=== PATIENT | female | born 1980 | race Caucasian/White ===

== ENCOUNTER 2024-03-03 09:50 | Outpatient (AMB) | payer OTHER, SELFPAY ==
--- NOTE | 2024-03-03 10:06 | A.OFFPC_ITS ---
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 She is requesting an albuterol inhaler at this time. 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 -Has been on fluoxetine for a while, got off it March 2023. c/o breast lump - [facility] Stressors- sick child PMHx: Depression/Anxiety, Asthma, GERD, IBS, Diabetes type 1 Dr Bailey at [facility], Neuropathy, Breast lump, Esophageal ulcer/Herpes virus. OB is [facility] SurgHx: , GB, Tonsils, Breast Lump [place] [facility] [place]x:??Alcoholism SocHx: Nonsmoker. 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 1. Little interest or pleasure in doing things: more than half the days 2. Feeling down, depressed, or hopeless: not at all 3. Trouble falling or staying asleep, or sleeping too much: nearly every day 4. Feeling tired or having little energy: nearly every day 5. Poor appetite or overeating: nearly every day 6. Feeling bad about yourself - or that you are a failure or have let yourself or your family down: not at all 7. Trouble concentrating on things, such as reading the newspaper or watching television: nearly every day 8. Moving or speaking so slowly that other people could have noticed. Or the opposite - being so fidgety or restless that you have been moving around a lot more than usual: nearly every day 9. Thoughts that you would be better off or of hurting yourself in some way: not at all Total score: 17 Depression Screening Interpretation: Positive Depression Screening Done: Yes 77859 - PHQ-9 Billing: Yes Source: Developed by Drs. Jj Sanchez, Blade Cabezas and colleagues, with an educational kelley from [employer]. TORO-7 AMB Questionnaire TORO-7 Date TORO - 7 assessed: 03/03/24 Feeling nervous, anxious, or on edge: 3 = Nearly every day Not being able to stop or control worryin = Not at all Worrying too much about different things: 2 = More than half the days Trouble relaxin = Several days Being so restless that it is hard to sit still: 0 = Not at all Becoming easily annoyed or irritable: 3 = Nearly every day Feeling afraid as if something awful might happen: 1 = Several days Total TORO-7 score (0-4 normal; 5-9 mild; 10-14 moderate; 15-21 severe): 10 Source: Developed by Drs. Jj Sanchez, Blade Cabezas and colleagues, with an educational kelley from [employer]. TORO-7 Assessment Billing TORO-7 Assessment Tool: TORO-7 Assessment 88331 ACT Questionnaire In the past 4 weeks, how much of the time did your asthma keep you from getting as much done at work, school or at home?: None of the time During the past 4 weeks, how often have you had shortness of breath?: 1-2 times a week During the past 4 weeks, how often did your asthma symptoms wake you up at night or earlier than usual in the morning?: Not at all During the past 4 weeks, how often have you had to use your rescue inhaler or nebulizer medication?: Not at all How would you rate your asthma control during the past 4 weeks?: Well controlled Score: 23 Review of Systems Const Denies chills, Denies fatigue, Denies fever(s), Denies headache(s) and Denies weakness ENT Denies dizziness and Denies headache(s) Card Denies chest pain, Denies lightheadedness, Denies dyspnea and Denies other (Palpitations) Resp Denies cough, Denies dyspnea, Denies wheezing and Denies other ( shortness of breath) Musc Denies numbness and Denies tingling Neuro Denies dizziness, Denies headache(s), Denies numbness, Denies tingling, Denies paresthesias and Denies weakness Psych Reports anxiety and Reports depression Endo Denies fatigue Aller/Immun Denies wheezing Physical exam (Primary Care) Vital Signs: Last Vital Signs Pulse 76 03/03/24 10:08 BP 128/70 03/03/24 10:08 Pulse Ox 97 03/03/24 10:08 Oxygen Delivery Method Room Air 03/03/24 10:08 BMI result Body Mass Index 27.5 Tobacco/Smoking Status: Tobacco use Status Tobacco use date assessed 03/03/24 03/03/24 10:20 Patient Tobacco Use Status Never used Tobacco 03/03/24 10:20 e-Cigarette/Vaping Use Never Used 03/03/24 10:20 Depression Screening Interpretation: Positive Const General: no acute distress and well developed Nutritional Appearance: well nourished Orientation/consciousness: patient oriented x3 HENMT Head: Yes normocephalic and Yes atraumatic Eyes General: appearance normal, both eyes and all related structures Pupils: Equal, round and reactive pupils present EOM: EOMs intact bilaterally Resp Effort & Inspection: normal respiratory effort Auscultation: clear to auscultation bilaterally Cardio Rate: regular rate Rhythm: regular rhythm Heart sounds: S1 normal heart sound present, S2 normal heart sound present, no gallops, no murmurs and no rubs Neuro General: patient oriented x3 and gait normal Cranial nerves: Yes Equal, round and reactive pupils present Psych Affect: No normal affect Assessment and Plan Assessment & Plan (1) Depression with anxiety: Code(s): F41.8 - Other specified anxiety disorders Plan: Questionnaire?scoring?high?for?depression?and?anxiety. She?has?a?therapist?and?has?a?history?of?fluoxetine?but?is?no?longer?on?this. She?declines?treatment?at?this?time?with?medications?and?I?encouraged?her?to?con tinue?with?her?therapist.??Let?her?know?that?we?can?discuss?medications?agai n?if?she?would?like. (2) Asthma: Code(s): J45.909 - Unspecified asthma, uncomplicated Plan: Gave?her?a?new?script?for?a?rescue?inhaler Gave?her?a?script?for?cetirizine?to?try?to?decrease?allergic?triggers (3) Type 1 diabetes: Code(s): E10.9 - Type 1 diabetes mellitus without complications Plan: A1c?7.8%?at?last?check,?per?patient. [facility]. Continue?current?medication?regimen?and?diabetic?diet Follow-up?with?endocrinology?as?recommended (4) Herpes simplex esophagitis: Code(s): B00.89 - Other herpesviral infection; K20.80 - Other esophagitis without bleeding Plan: She?is?on?acyclovir?for?suppression. Will?continue?the (5) Lump of breast: Code(s): N63.0 - Unspecified lump in unspecified breast Plan: Followed?by?[facility] Can?follow-up?with?them?as?recommended (6) Brain fog: Code(s): R41.89 - Other symptoms and signs involving cognitive functions and awareness Plan: Patient?attributes?this?to?discontinuing?acyclovir?and?herpetic?infection. Checking?labs We?can?discuss?further?at?subsequent?visits. (7) Laboratory exam ordered as part of routine general medical examination: Code(s): Z00.00 - Encounter for general adult medical examination without abnormal findings Plan: Check?labs Orders: Orders Lipid Panel Today Z00.00 - Encounter for general adult medical examination without abnormal findings UA and rflx microscopic Today Z00.00 - Encounter for general adult medical examination without abnormal findings Comprehensive [place]. Panel Fast Today Z00.00 - Encounter for general adult medical examination without abnormal findings Complete Blood Count Auto Diff Today Z00.00 - Encounter for general adult medical examination without abnormal findings Microalbumin, Random (w Creat) Today I10 - Essential (primary) hypertension TSH reflex Free T4 Today Z00.00 - Encounter for general adult medical examination without abnormal findings Vitamin D 25-OH Total Today E55.9 - Vitamin D deficiency, unspecified Magnesium Today J45.909 - Unspecified asthma, uncomplicated Medications: New albuterol sulfate 90 mcg/actuation (Ventolin HFA) 2 puffs inhalation Q4-6H 30 days PRN 8.5 grams 4RF shortness of breath or wheezing cetirizine (All Day Allergy (cetirizine)) 10 mg PO DAILY 90 days PRN 90 tabs 3RF allergy symptoms Coding Level of Care Code New Pt Level 4 (16856) Diagnoses Depression with anxiety F41.8 Asthma J45.909 Type 1 diabetes E10.9 Herpes simplex esophagitis B00.89; K20.80 Lump of breast N63.0 Brain fog R41.89 Laboratory exam ordered as part of routine general medical examination Z00.00 Additional Codes TORO-7 Assessment Billing - TORO-7 Assessment Tool: TORO-7 Assessment 32833 ([id number])
[2024-03-03 10:08] VITALS: BP 128/70; PULSE 76; O2SAT 97; BMI 27.5
== END 2024-03-03 11:15 | disposition home or self-care (01) ==
PROVIDERS: PCP Family Medicine; Visit Provider Family Medicine
DX: E10.9 Type 1 diabetes mellitus without complications (principal); F41.8 Other specified anxiety disorders; J45.909 Unspecified asthma, uncomplicated; B00.89 Other herpesviral infection; K20.80 Other esophagitis without bleeding; R41.89 Other symptoms and signs involving cognitive functions and awareness
CPT/HCPCS: 99204

== ENCOUNTER 2025-01-05 10:30 | Outpatient (REF) | payer BC, SELFPAY ==
[2025-01-05 14:20] LABS: Appearance Urine Clear; Color Urine Yellow; Glucose Urine UA Negative (Negative); Leukocyte Esterase Urine Negative (Negative); Nitrite Urine Negative (Negative); Urine Blood Negative (Negative); Urine Ketones Negative (Negative); Urine Protein Negative (Neg-Trace)
[2025-01-05 14:22] LABS: MANUAL DIFF FLAG NO
[2025-01-05 14:26] LABS: Basophils Absolute Auto 0.1 X10*3/uL (0.0-0.2); Basophils Percent Auto 0.9 % (0-2); Eosinophils Absolute Auto 0.5 X10*3/uL (0.0-0.4); Eosinophils Percent Auto 7.7 % (0-4); Hematocrit 39.4 % (37.0-47.0); Hemoglobin 13.5 g/dl (12.0-16.0); Imm Gran Abs Auto 0.02 X10*3/uL (0.00-0.03); Imm Gran Pct Auto 0.3 % (0.0-0.4); Lymphocytes Percent Auto 31.3 % (20-40); Mean Corpuscular HGB Conc 34.3 g/dl (31.0-35.0); Mean Corpuscular Hemoglobin 30.1 pg (27.0-33.0); Mean Corpuscular Volume 87.8 fL (80.0-98.0); Mean Platelet Volume 9.5 fL (9.4-12.3); Monocytes Absolute Auto 0.6 X10*3/uL (0.1-1.2); Monocytes Percent Auto 8.8 % (2-11); Neutrophils Absolute Auto 3.3 x10*3/uL (2.0-8.3); Platelet Count 341 X10*3/uL (160-400); Red Blood Count 4.49 X10*6/uL (4.20-5.50); Red Cell Distribution Width 11.8 % (11.0-16.0); White Blood Count 6.4 X10*3/uL (4.8-10.8)
[2025-01-05 15:05] LABS: Alanine Aminotransferase 29 U/L (0-31); Albumin Level 4.1 g/dL (3.5-5.0); Alkaline Phosphatase 72 U/L (39-117); Anion Gap 9 (12-20); Aspartate Amino Transferase 26 U/L (5-31); Bilirubin Total 0.4 mg/dL (0.0-1.0); Blood Urea Nitrogen 21 mg/dL (9-16); Calcium 9.5 mg/dL (8.4-10.2); Carbon Dioxide 27 mmol/L (22-29); Chloride 109 mmol/L (96-108); Cholesterol 171 mg/dL (<200); Estimated Glomerular Filt Rate > 60; Glucose Fasting 86 mg/dL (60-99); HDL Cholesterol 58 mg/dL (>40); LDL Cholesterol Calculated 104 mg/dL (<100); Magnesium 1.9 mg/dL (1.6-2.6); Potassium 4.1 mmol/L (3.3-5.1); Sodium 141 mmol/L (135-145); Total Protein 6.6 g/dL (6.5-8.0); Triglycerides 46 mg/dL (<150)
[2025-01-05 15:14] LABS: TSH reflex Free T4 0.89 uIU/mL (0.32-4.0); Vitamin D 25-OH Total 68.1 ng/mL (>30)
[2025-01-05 15:27] LABS: Creatinine Urine 35.53 mg/dL; Microalbumin Urine < 5.0 mg/L
== END 2025-01-05 10:31 | disposition home or self-care (01) ==
LOC: HO.WFDLDS 10:30
PROVIDERS: Visit Provider Family Medicine
DX: Z00.00 Encounter for general adult medical examination without abnormal findings (principal); E55.9 Vitamin D deficiency, unspecified; J45.909 Unspecified asthma, uncomplicated; I10 Essential (primary) hypertension
CPT/HCPCS: 36415; 80053; 80061; 81003; 82043; 82306; 82570; 83735; 84443; 85025

== ENCOUNTER 2025-01-12 11:55 | Outpatient (AMB) | payer BC, SELFPAY ==
--- NOTE | 2025-01-12 12:16 | A.OFFPC_ITS ---
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 Is last menstrual period known: No Post menopausal: Yes Patient : No Allergies Penicillins [PCN] Allergy (Mild, Verified 01/12/25 12:17) HIVES penicillin V Allergy (Unknown, Verified 01/12/25 12:17) Hives, fever, vomiting Sulfa (Sulfonamide Antibiotics) [SULFA (SULFONAMIDE ANTIBIOTICS)] Allergy (Unknown, Verified 01/12/25 12:17) ITCHING Medication List - Last Reconciled 01/12/25 by Eric Guerrero MD acyclovir 200 mg PO TID albuterol sulfate 90 mcg/actuation (Ventolin HFA) 2 puffs inhalation Q4-6H PRN 30 days cetirizine (All Day Allergy (cetirizine)) 10 mg PO DAILY PRN 90 days fluconazole 100 mg PO QWEEK insulin lispro (Humalog U-100 Insulin) 1 sliding scale dose subcut USEASDIRECTD Tobacco use date assessed: 01/12/25 Dental Screening Dental Screen Date: 01/12/25 Did you have a dental visit in the last 12 months?: Yes Did you have a dental problem in the last 6 months where you did not have access to dental care?: Yes Was dental information given to patient?: No HPI Extended exam with f/u labs and health maint.+ A1C HPI Details 44 y/o female presents for a CPE with f/ u labs and health maint. Labs drawn 01/05/25. Reviewed labs with pt. Triglycerides 46. TC 171. LDL 104. HDL 58. PHQ-9 6, TORO-7 9 today. Type 1 diabetes. Last A1c 8.6% and is followed by endocrinology. [facility] Medical History delivery delivered Depression Anxiety Rash Imbalance Memory loss Neuropathy Injury Incontinence Esophageal ulcer Gallbladder attack GERD (gastroesophageal reflux disease) IBS (irritable bowel syndrome) Arthritis Palpitations Asthma Surgical History S/P cholecystectomy S/P tonsillectomy Family History Brother Substance abuse in family High blood pressure Paternal Uncle Substance abuse in family Maternal Grandmother Substance abuse in family High blood pressure Diabetes Thyroid disorder Mother High blood pressure Diabetes Thyroid disorder Father High blood pressure Alcoholism Paternal Grandfather High blood pressure Thyroid disorder Paternal Grandfather High blood pressure Thyroid disorder Unknown Diabetes Alcoholism Paternal Grandmother Alcoholism Maternal Grandfather Alcoholism Social History Housing: House Patient Tobacco Use Status: Never used Tobacco e-Cigarette/Vaping Use: Never Used Second Hand Smoke Exposure: No service: No Current occupational status: employed 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 1. Little interest or pleasure in doing things: several days 2. Feeling down, depressed, or hopeless: not at all 3. Trouble falling or staying asleep, or sleeping too much: several days 4. Feeling tired or having little energy: several days 5. Poor appetite or overeating: not at all 6. Feeling bad about yourself - or that you are a failure or have let yourself or your family down: not at all 7. Trouble concentrating on things, such as reading the newspaper or watching television: more than half the days 8. Moving or speaking so slowly that other people could have noticed. Or the opposite - being so fidgety or restless that you have been moving around a lot more than usual: several days 9. Thoughts that you would be better off or of hurting yourself in some way: not at all Total score: 6 Depression Screening Interpretation: Positive (Referred to Neuropsych) Depression Screening Done: Yes 12948 - PHQ-9 Billing: Yes Source: Developed by Drs. Jj Sanchez, Karlie Perez, Blade Muhammad and colleagues, with an educational kelley from [employer]. Thrive Questionnaire Date Thrive assessed: 01/12/25 I am a: Patient What is your living situation today?: I have a steady place to live Within the past 12 months, did the food you bought not last and you didn't have the money to get more?: Never true Within the past 12 months, did you worry whether your food would run out before you got money to buy more?: Never true Do you have trouble paying for medicines?: No Do you have trouble getting transportation to medical appointments?: No Do you have trouble paying your heating and electricity bill?: No Do you have trouble taking care of your child, family member or friend?: No Do you have trouble with day-to-day activities such as bathing, preparing meals, shopping, managing finances, etc.?: No Are you currently unemployed and looking for a job?: No Are you interested in more education?: Yes Please select the resources that you would like help with: None Currently or been in a relationship where the following occur: No concerns reported THRIVE Score: 0 AUDIT C Alcohol Use Questionnaire (AUDIT-C) 1. How often do you have a drink containing alcohol?: Never 3. How often do you have six or more drinks on one occasion?: Never Total Score: 0 Score Reviewed/Action Taken: Yes TORO-7 AMB Questionnaire TORO-7 Date TORO - 7 assessed: 01/12/25 Feeling nervous, anxious, or on edge: 3 = Nearly every day Not being able to stop or control worryin = Several days Worrying too much about different things: 1 = Several days Trouble relaxin = Several days Being so restless that it is hard to sit still: 1 = Several days Becoming easily annoyed or irritable: 1 = Several days Feeling afraid as if something awful might happen: 1 = Several days Total TORO-7 score (0-4 normal; 5-9 mild; 10-14 moderate; 15-21 severe): 9 Source: Developed by Drs. Jj Sanchez, Karlie Perez, Blade Muhammad and colleagues, with an educational kelley from [employer]. TORO-7 Assessment Billing TORO-7 Assessment Tool: TORO-7 Assessment 23716 Review of Systems Const Denies chills, Denies fatigue, Denies fever(s), Denies headache(s) and Denies weakness Eyes Denies change in vision ENT Denies dizziness and Denies headache(s) Card Denies dyspnea Resp Denies cough, Denies dyspnea, Denies wheezing and Denies other (shortness of breath) GI Denies abdominal pain, Denies melena, Denies hematochezia, Denies change in bowel habits, Denies dyspepsia and Denies nausea Denies hematuria and Denies dysuria Musc Denies numbness and Denies tingling Skin/Breast Denies rash, Denies unusual bruising and Denies wounds Neuro Denies dizziness, Denies headache(s), Denies numbness, Denies Sensory deficit (Neuro), Denies tingling and Denies weakness Psych Reports anxiety and Reports depression Endo Denies fatigue Milton/Lymph Denies easy bleeding and Denies easy bruising Aller/Immun Denies wheezing Physical exam (Primary Care) Vital Signs: Last Vital Signs Temp 98.3 F 01/12/25 12:24 Pulse 70 01/12/25 12:24 Resp 14 01/12/25 12:24 BP 106/68 01/12/25 12:24 Pulse Ox 98 01/12/25 12:24 Oxygen Delivery Method Room Air 01/12/25 12:24 BMI result Body Mass Index 27.6 Tobacco/Smoking Status: Tobacco use Status Tobacco use date assessed 01/12/25 01/12/25 12:27 Patient Tobacco Use Status Never used Tobacco 01/12/25 12:27 e-Cigarette/Vaping Use Never Used 01/12/25 12:27 PHQ-9: PHQ-9 Score PHQ-9: Total score 6 01/12/25 12:27 Depression Screening Interpretation: Positive (Referred to Neuropsych) Thrive Assessment: Date of Thrive Assessment Date Thrive assessed 01/12/25 01/12/25 12:27 Currently or been in a relationship where the following occur: No concerns reported Const General: well developed; No acute distress Nutritional Appearance: well nourished Orientation/consciousness: patient oriented x3 HENMT Head: Yes normocephalic and Yes atraumatic Ears: hearing grossly normal bilaterally and TM's normal bilaterally General nose exam: Normal external nose present and Normal nares present Mouth: Normal oral and palatal mucosa present and moist mucous membranes Teeth and gingiva: dentition normal Throat: Yes posterior oropharynx normal Eyes General: appearance normal, both eyes and all related structures Pupils: Equal, round and reactive pupils present EOM: EOMs intact bilaterally Neck Neck: Yes normal visual inspection, Yes no lymphadenopathy and Yes trachea midline Thyroid: Thyroid normal Carotids: no bruits Lymphatic: no lymphadenopathy noted Chest Chest palpation & inspection: normal inspection of the chest Resp Other: Wheeze at L upper lung field Effort & Inspection: normal respiratory effort Auscultation: not clear to auscultation bilaterally Cardio Rate: regular rate Rhythm: regular rhythm Heart sounds: S1 normal heart sound present, S2 normal heart sound present, no gallops, no murmurs and no rubs Bruits: no abdominal aortic bruits and no carotid bruits GI Palpation (GI): No Abdominal aortic bruit present, Soft to palpation, nontender, No hepatosplenomegaly present and No Rebound tenderness present Auscultation: normal bowel sounds General: Yes no CVA tenderness Back/Spine/Pelvis Back: no CVA tenderness Cervical Spine: cervical ROM normal and No Cervical spine tenderness Thoracic/Lumbar Spine: thoraco-lumbar ROM normal, No pain with thoraco-lumbar ROM, No thoracic spinal tenderness and No lumbar spinal tenderness Skin Lesions: no lesions Rashes: no rashes Trauma: no lacerations or abrasions Wounds: no wounds Nails: normal Neuro General: patient oriented x3 and gait normal Cranial nerves: Yes Equal, round and reactive pupils present Cognition (Neuro): normal cognition Gait exam (Neuro): Normal gait present Motor exam (neuro): 5/5 motor strength present throughout Sensory Exam: No Sensory deficit (Neuro) Deep tendon reflexes (DTR's): Right patellar reflex intensity grade: 2+ and Left patellar reflex intensity grade: 2+ Extrem General: Yes normal to inspection and No edema Psych Other: Tearful while recounting stressors Appearance: grossly normal Affect: normal affect Attitude: cooperative Thought process: Normal thought process present Coding Level of Care Code Est Pt Level 3 (29350) Est Pt Prev Care 40-64y(54312) Diagnoses Adult general medical exam Z00.00 Brain fog R41.89 Shortness of breath R06.02 Abnormal lung sounds R09.89 Type 1 diabetes E10.9 Screening for colon cancer Z12.11 Breast cancer screening by mammogram Z12.31 Screening for cervical cancer Z12.4 Additional Codes TORO-7 Assessment Billing - TORO-7 Assessment Tool: TORO-7 Assessment 75391 ([id number]) PHQ-9 - 33302 - PHQ-9 Billing: Yes ([id number]) Assessment & Plan Assessment & Plan (1) Adult general medical exam: Code(s): Z00.00 - Encounter for general adult medical examination without abnormal findings Category: Medical Plan: 44-year-old?female?presents?for?complete?physical?exam Stable (2) Brain fog: Code(s): R41.89 - Other symptoms and signs involving cognitive functions and awareness Category: Medical Plan: Ongoing?complaints?of?brain?fog?and?memory?changes?as?well?as?some?mental?stephany hernandez Referred?to?neuropsychiatry She?also?has?allergies?and?elevated?eosinophils. Allergies?can?sometimes?contribute?brain?fog?and?I?have?referred?her?to?immunolo gy (3) Shortness of breath: Code(s): R06.02 - Shortness of breath Category: Medical Plan: She?has?had?some?shortness?of?breath?and?she?has A?wheeze/grown?at?left?upper?lung?field Check?chest?x-ray (4) Abnormal lung sounds: Code(s): R09.89 - Other specified symptoms and signs involving the circulatory and r espiratory systems Category: Medical Plan: As?above,?checking?a?chest?x-ray. (5) Type 1 diabetes: Code(s): E10.9 - Type 1 diabetes mellitus without complications Category: Medical Plan: Followed[facility]by[facility]ology[facility]at[facility] No?changes?to?her?medication?regimen?today Follow-up?with?your?specialist?as?recommended (6) Screening for colon cancer: Code(s): Z12.11 - Encounter for screening for malignant neoplasm of colon Category: Medical Plan: Referred?to? (7) Breast cancer screening by mammogram: Code(s): Z12.31 - Encounter for screening mammogram for malignant neoplasm of breast Category: Medical Plan: Followed?by?her?nurse obgyn Will?request?notes Patient?says?that?she?has been?diagnosed?with?diabetic?mastopathy. She?has?also?had?a?lumpectomy?which?was?benign Most?recent?mammogram?required?ex?reviews?and she?was?then?j ust?told?she?has?dense?breasts. Follow-up?nurse obgyn?as?recommended (8) Screening for cervical cancer: Code(s): Z12.4 - Encounter for screening for malignant neoplasm of cervix Category: Medical Plan: Has?upcoming?appointment?with?her?nurse obgyn Plan Patient?acknowledges?significant?stress?and?stressors?and?anxiety.??She?denied?d epression?but?became?tearful?at?multiple?times?during?our?exam?while?recounting? various?stressors. She?also?acknowledges?significant?musculoskeletal?aches?and?pains. Concern?for?fibromyalgia.??Concern?for?anxiety?and?depression.??She?has?declined ?medication?for?mood?disorders. I ?am?referring?her?to?neuropsychiatry?to?evaluate memory?changes,?mental?blocking?and?brain?fog.??These?can?however?be be?due?to?a?mood?disorder. May?also?have?fibromyalgia.??We?discussed?that?I?have?n ot?ruled?this?out?and?if?we?rule?out?other?underlying?causes?for?her?musculoskel etal?conditions?as?well?as mental?conditions,?this?may?be?the?underlying?cause. Orders: Orders CRP High Sensitivity Today R41.3 - Other amnesia XR chest 2V Today R09.89 - Other specified symptoms and signs involving the circulatory and respiratory systems Follicle Stimulating Hormone Today R41.3 - Other amnesia Lutenizing Hormone Today R41.3 - Other amnesia HIV Ab/Ag Today R41.3 - Other amnesia, Z11.3 - Encounter for screening for infections with a predominantly sexual mode of transmission Syphilis Screen Today R41.3 - Other amnesia, Z11.3 - Encounter for screening for infections with a predominantly sexual mode of transmission Erythrocyte Sedimentation Rate Today R41.3 - Other amnesia Estrogen Today R41.3 - Other amnesia Referrals Allergy & Immunology Referral D72.10 - Eosinophilia, unspecified, R41.89 - Other symptoms and signs involving cognitive functions and awareness, T78.40XA - Allergy, unspecified, initial encounter Gastroenterology Referral K21.9 - Gastro-esophageal reflux disease without esophagitis, K22.10 - Ulcer of esophagus without bleeding, Z12.11 - Encounter for screening for malignant neoplasm of colon Neuropsychiatry Referral R41.3 - Other amnesia, R41.89 - Other symptoms and signs involving cognitive functions and awareness
[2025-01-12 12:24] VITALS: BP 106/68; PULSE 70; RESP 14; TEMP 36.8; O2SAT 98; BMI 27.6
--- OUTSIDE RECORDS SUMMARY | 2025-01-12 14:15 | XMS_ITS | Continuity of Care Document ---
Author Organization [facility] Address [address] [place] [address]- Care Team Providers Care Linux Consultant Name Role Phone Not on Staff, PCP Primary Care Physician Unavail able [place] [facility] [place]): 12/10/24 - 01/09/25 [facility] [address] [place], [place] [address] Encounter Type: Triage Allergies, Adverse Reactions, Alerts Substance Criticality Severity Reaction Reaction Severity Status acetaminophen 1 due to glucose monitor Active penicillin hives/ fever Active Bactrim Itching Active garlic 2 bloated; nausea and vomiting; joint pain Active 1states that it affects her CGM 2nasuea, vommiting, diarrhea, swelling, joint pain Immunizations Given and Recorded Vaccine Date Status Refusal Reason pneumococcal 23-valent vaccine 1 10/25/17 Given tetanus-diphtheria toxoids (Td) 2 11/01/16 Recorde d tetanus-diphtheria toxoids (Td) 3 10/14/06 Recorde d influenza virus vaccine, inactivated 07/29/12 Nito rded influenza virus vaccine, inactivated 09/09/11 Nito rded influenza virus vaccine, inactivated 07/31/10 Nito rded diphtheria-tetanus toxoids (DT) 01/20/07 Recorded 1Result Comment: [10/25/2017] [facility] [id number] 2Result Comment: [04/17/2017] [facility] 3Result Comment: [08/06/2014] documentation received from records Medications acyclovir 200 mg oral capsule 1 capsule, By Mouth, 2 times a day, # 180 capsule, 1 Refills, Maintenance, 12/16/23 11:46:00 AM EST, [id number], 163, cm, 12/24/22 11:26:00 EDT, Height, 62.6, kg, 12/24/22 11:26:00 EDT, Dry Weight Start Date: 12/16/23 Status: Ordered Quantity: 180.0 Unit: capsule Repeat number: 1 busPIRone 5 mg oral tablet 5 mg, 1, tablet, By Mouth, 2 times a day, PRN, as needed for acute anxiety, # 28 tablet, Refills 0,Tot. Refills 0, Maintenance, Anxiety, 08/08/22 8:25:00 AM EDT, Route to Pharmacy Electronically, [facility]/pharmacy #[id number], Partial fill upon patient request if the prescription is for a schedule II opioid drug., 162.56, cm, 08/08/22 7:53:00 EDT, Height, 67.7, kg, 04/11/21 16:32:00 EDT, Dry Weight Start Date: 08/08/22 Stop Date: 08/22/22 Status: Ordered Quantity: 28.0 Unit: tablet Repeat number: 1 cranberry oral capsule 1 tablet, By Mouth, Daily in AM, 0 Refills, Maintenance, 07/09/19 10:09:09 AM EDT Start Date: 07/09/19 Status: Ordered Repeat number: 1 fluconazole 150 mg oral tablet 1 tablet, By Mouth, Every week, X180 DAYS., # 4 tablet, 12 Refills, Soft Stop, 06/06/22 8:54:00 AM EDT, [facility]/pharmacy #[id number], 162.56, cm, 03/08/22 16:39:00 EDT, Height, 67.7, kg, 04/11/21 16:32:00 EDT, Dry Weight Start Date: 06/06/22 Status: Ordered Quantity: 4.0 Unit: tablet Repeat number: 13 Gabapentin By Mouth, 0 Refills, Maintenance, 12/24/22 11:29:00 AM EDT, Partial fill upon patient request if theprescription is for a schedule II opioid drug. Start Date: 12/24/22 Status: Ordered Repeat number: 1 Humalog 100 u/ml subcutaneous injection See Instructions, Subcutaneous Injection, Use as directed for Diabetes mellitus type 1. (Max Dose =50 units/day). 10 mL vials, # 3 vials, 5 Refills, Maintenance, 01/20/14 4:13:26 PM EDT, [facility]/pharmacy #[id number] Start Date: 01/20/14 Stop Date: 07/19/14 Status: Ordered Quantity: 3.0 Unit: vials Repeat number: 6 Insulin Syringe, BD Ultra-Fine 0.5 cc 31 G x 8 mm (5/16in) See Instructions, # 100 each, Refills 5, Tot. Refills 5, Maintenance, Inject insulin as directed 3-5 times a day DX: Diabetes Type II, 05/24/17 4:30:36 PM EDT, Compound Start Date: 05/24/17 Stop Date: 11/20/17 Status: Ordered Quantity: 100.0 Unit: each Repeat number: 6 Insulin Syringe, BD Ultra-Fine 1 cc 30 G x 12.7 mm (1/2in) See Instructions, PRN, # 100 each, Refills 11, Tot. Refills 11, Maintenance, type 1 DM, type 1 DM as diected, 06/28/17 4:04:02 PM EDT, Compound Start Date: 06/28/17 Status: Ordered Quantity: 100.0 Unit: each Repeat number: 12 Liletta 52 mg intrauterine device 1 each = 52 mg, Once, 0 Refills, Maintenance, 07/03/19 11:28:54 AM EDT Start Date: 07/03/19 Status: Ordered Repeat number: 1 Magnesium Amino Acids Chelate By Mouth, 0 Refills, Maintenance, 12/24/22 11:28:00 AM EDT, Partial fill upon patient request if theprescription is for a schedule II opioid drug. Start Date: 12/24/22 Status: Ordered Repeat number: 1 Natrol SAMe 200 mg oral tablet 2 tablet = 400 mg, By Mouth, Daily, 0 Refills, Maintenance, 12/24/22 11:28:00 AM EDT, Partial fill upon patient request if the prescription is for a schedule II opioid drug. Start Date: 12/24/22 Status: Ordered Repeat number: 1 oxyCODONE 5 mg oral tablet 5 mg, 1, tablet, By Mouth, Every 6 hours, PRN, # 5 tablet, Refills 0, Tot. Refills 0, Maintenance, for pain, 11/02/22 4:25:00 PM EST, Route to Pharmacy Electronically, [facility]/pharmacy #[id number], Partial fillupon patient request, 163, cm, 11/02/22 14:38:00 EST, Height, 65, kg, 11/02/22 14:38:00 EST, Dry Weight Start Date: 11/02/22 Status: Ordered Quantity: 5.0 Unit: tablet Repeat number: 1 ProAir HFA 90 mcg/inh inhalation aerosol with adapter 2 puffs, Inhalation, 4 times a day, PRN Wheezing/Shortness of Breath, # 1 bottle, 1 Refills, Maintenance, 11/23/14 10:52:36 AM EST, [facility]/pharmacy #[id number], 2 puffs Inhalation 4 times a day,PRN:Wheezing/Shortness of Breath Start Date: 11/23/14 Status: Ordered Quantity: 1.0 Unit: bottle Repeat number: 2 Probiotic Formula 1 capsule, By Mouth, Daily, 0 Refills, Maintenance, 07/09/19 10:11:29 AM EDT Start Date: 07/09/19 Status: Ordered Repeat number: 1 turmeric 500 mg oral capsule 1 capsule = 500 mg, By Mouth, Daily, # 60 capsule, 0 Refills, Maintenance, 07/09/19 10:11:08 AM EDT,Capsule Start Date: 07/09/19 Status: Ordered Quantity: 60.0 Unit: capsule Repeat number: 1 Vitamin B12 1 tablet, By Mouth, Daily, 0 Refills, Maintenance, 07/09/19 10:11:41 AM EDT Start Date: 07/09/19 Status: Ordered Repeat number: 1 Problem List Condition Confirmation Course Effective Dates Status H ealth Status Informant Diabetes mellitus with neuropathy Confirmed Active Genital herpes in women Confirmed Active Long-term insulin use Confirmed Active Mixed hyperlipidemia Confirmed Active Diabetic retinopathy of both eyes Confirmed Active Diabetes mellitus type 1 Confirmed Active Vitamin D deficiency Confirmed Active Social History Social History Type Response Smoking Status Never smoker entered on: 09/16/13 Sex Sex Representation Female (finding) Patient Care team information Care Team Personnel Name: Chon Zarate RN Position: [facility] RN Member Role: Primary Care Nurse Name: Isabel Baker MD Position: [facility] MATERIAL MIXER MD Member Role: Lifetime MATERIAL MIXER Physician Address: [address] [place] [address]'s [facility] [place] [address]- Telecom: Name: Not on Staff, PCP Position: [facility] Physician (General Medicine) Member Role: PCP Care Team Related Persons Name: DARIEL FLORES Name: TAMMIE CORONADO Name: TAMMIE HERNANDEZ Insurance Providers Guarantor name: WENDIE IVONNE [facility] Plan Information #: 1 Payer: OUT OF STATE PLANS Member Number: NA Policy Number: NA Group Number: NA
--- OUTSIDE RECORDS SUMMARY | 2025-01-12 14:15 | XMS_ITS | Continuity of Care Document ---
[facility] Organization [facility] Address [address] [place] [address]- Care Team Providers Care Legal Clerk Name Role Phone Not on Staff, PCP Primary Care Physician Unavail able [place] [facility] [place] 12/10/24 - 01/09/25 [facility] [address] [place], [place] [address] Encounter Type: Triage Allergies, Adverse Reactions, Alerts Substance Criticality Severity Reaction Reaction Severity Status acetaminophen 1 due to glucose monitor Active garlic 2 bloated; nausea and vomiting; joint pain Active penicillin hives/ fever Active Bactrim Itching Active 1states that it affects her CGM [...] toxoids (DT) 01/20/07 Recorded 1Result Comment: [10/25/2017] [facility] [id number] 2Result Comment: [04/17/2017] [facility] ER 3Result Comment: [08/06/2014] documentation received from records Medications acyclovir 200 mg oral capsule 1 capsule, By Mouth, 2 times a day, # 180 capsule, 1 Refills, Maintenance, 12/16/23 11:46:00 AM EST, [id number], 163, cm, 12/24/22 11:26:00 EDT, Height, 62.6, kg, 12/24/22 11:26:00 EDT, Dry Weight Start Date: 12/16/23 Status: Ordered Quantity: 180.0 Unit: capsule Repeat number: 1 busPIRone 5 mg oral tablet 5 mg, 1, tablet, By Mouth, 2 times a day, PRN, as needed for acute anxiety, # 28 tablet, Refills 0,Tot. Refills 0, Maintenance, Anxiety, 08/08/22 8:25:00 AM EDT, Route to Pharmacy Electronically, [facility]/pharmacy #[id number], Partial fill upon patient request if [...] Refills, Soft Stop, 06/06/22 8:54:00 AM EDT, [facility]/pharmacy #[id number], 162.56, cm, 03/08/22 16:39:00 EDT, Height, [...] 5 Refills, Maintenance, 01/20/14 4:13:26 PM EDT, [facility]/pharmacy #[id number] Start Date: 01/20/14 Stop Date: 07/19/14 [...] 4:25:00 PM EST, Route to Pharmacy Electronically, [facility]/pharmacy #[id number], Partial fillupon patient request, 163, cm, 11/02/22 14:38:00 EST, Height, 65, kg, 11/02/22 14:38:00 EST, Dry Weight Start Date: 11/02/22 Status: Ordered Quantity: 5.0 Unit: tablet Repeat number: 1 ProAir HFA 90 mcg/inh inhalation aerosol with adapter 2 puffs, Inhalation, 4 times a day, PRN Wheezing/Shortness of Breath, # 1 bottle, 1 Refills, Maintenance, 11/23/14 10:52:36 AM EST, [facility]/pharmacy #[id number], 2 puffs Inhalation 4 times a day,PRN:Wheezing/Shortness [...] Team Personnel Name: Chon Zarate RN Position: [facility] RN Member Role: Primary Care Nurse Name: Isabel Baker MD Position: [facility] CUSTOM HARVESTER MD Member Role: Lifetime CUSTOM HARVESTER Physician Address: [address] [place] [address]'s [facility] [place] [address]- Telecom: Name: Not on Staff, PCP Position: [facility] Physician (General Medicine) Member Role: PCP Care Team Related Persons Name: DARIEL FLORES Name: TAMMIE CORONADO Name: TAMMIE HERNANDEZ Insurance Providers Guarantor name: WENDIE IVONNE [facility] Plan Information #: 1 Payer: OUT OF STATE PLANS Member Number: NA Policy Number: NA Group Number: NA
--- OUTSIDE RECORDS SUMMARY | 2025-01-12 14:15 | XMS_ITS | Continuity of Care Document ---
Author Organization [facility] Address [address] [place] [address]- Care Team Providers Care [employer] Director Name Role Phone Not on Staff, PCP Primary Care Physician Unavail able [place] [facility] [place] 01/[place]25 [facility] [address] [place], [place] [address] Encounter Type: Triage Allergies, Adverse Reactions, [...] toxoids (DT) 01/20/07 Recorded 1Result Comment: [10/25/2017] [facility] [id number] 2Result Comment: [04/17/2017] [facility] ER 3Result Comment: [08/06/2014] documentation received from records Medications acyclovir 200 mg oral capsule 1 capsule, By Mouth, 2 times a day, # 180 capsule, 1 Refills, Maintenance, 12/16/23 11:46:00 AM EST, [facility] [id number], 163, cm, 12/24/22 11:26:00 EDT, Height, 62.6, kg, 12/24/22 11:26:00 EDT, Dry Weight Start Date: 12/16/23 Status: Ordered Quantity: 180.0 Unit: capsule Repeat number: 1 busPIRone 5 mg oral tablet 5 mg, 1, tablet, By Mouth, 2 times a day, PRN, as needed for acute anxiety, # 28 tablet, Refills 0,Tot. Refills 0, Maintenance, Anxiety, 08/08/22 8:25:00 AM EDT, Route to Pharmacy Electronically, [facility]/pharmacy #[id number], Partial fill upon patient request if [...] Refills, Soft Stop, 06/06/22 8:54:00 AM EDT, [facility]/pharmacy #[id number], 162.56, cm, 03/08/22 16:39:00 EDT, Height, [...] 5 Refills, Maintenance, 01/20/14 4:13:26 PM EDT, [facility]/pharmacy #[id number] Start Date: 01/20/14 Stop Date: 07/19/14 [...] 4:25:00 PM EST, Route to Pharmacy Electronically, [facility]/pharmacy #[id number], Partial fillupon patient request, 163, cm, 11/02/22 14:38:00 EST, Height, 65, kg, 11/02/22 14:38:00 EST, Dry Weight Start Date: 11/02/22 Status: Ordered Quantity: 5.0 Unit: tablet Repeat number: 1 ProAir HFA 90 mcg/inh inhalation aerosol with adapter 2 puffs, Inhalation, 4 times a day, PRN Wheezing/Shortness of Breath, # 1 bottle, 1 Refills, Maintenance, 11/23/14 10:52:36 AM EST, [facility]/pharmacy #[id number], 2 puffs Inhalation 4 times a day,PRN:Wheezing/Shortness [...] Team Personnel Name: Chon Zarate RN Position: [facility] RN Member Role: Primary Care Nurse Name: Isabel Baker MD Position: [facility] BALANCE CLERK MD Member Role: Lifetime BALANCE CLERK Physician Address: [address] [place] [address]'s [facility] [place] [address]- Telecom: Name: Not on Staff, PCP Position: [facility] Physician (General Medicine) Member Role: PCP Care Team Related Persons Name: DARIEL FLORES Name: TAMMIE CORONADO Name: TAMMIE HERNANDEZ Insurance Providers Guarantor name: WENDIE IVONNE [facility] Plan Information #: 1 Payer: OUT OF STATE PLANS Member Number: NA Policy Number: NA Group Number: NA
== END 2025-01-12 13:29 | disposition home or self-care (01) ==
LOC: HO.HMCFM 11:56
PROVIDERS: PCP Family Medicine; Visit Provider Family Medicine
DX: Z00.00 Encounter for general adult medical examination without abnormal findings (principal); R41.89 Other symptoms and signs involving cognitive functions and awareness; R06.02 Shortness of breath; E10.9 Type 1 diabetes mellitus without complications; R09.89 Other specified symptoms and signs involving the circulatory and respiratory systems; Z12.11 Encounter for screening for malignant neoplasm of colon; Z12.31 Encounter for screening mammogram for malignant neoplasm of breast

== ENCOUNTER → 2025-01-12 11:55 | Outpatient (BNVA) | payer BC, SELFPAY | PROVIDERS: PCP Family Medicine; Visit Provider Family Medicine | DX: Z00.00 Encounter for general adult medical examination without abnormal findings (principal); R41.89 Other symptoms and signs involving cognitive functions and awareness; R06.02 Shortness of breath; R09.89 Other specified symptoms and signs involving the circulatory and respiratory systems; E10.9 Type 1 diabetes mellitus without complications | CPT/HCPCS: 96127 ==

== ENCOUNTER 2025-01-20 07:42 | Outpatient (REF) | payer BC, SELFPAY ==
--- NOTE | ~2025-01-20 | XR_ITS ---
EXAMINATION: XR CHEST CLINICAL INFORMATION: R09.89 - Other specified symptoms and signs involving the circulatory an... COMPARISON: 12/31/2017. TECHNIQUE: 2 views of the chest were obtained. FINDINGS: The cardiac, hilar, and mediastinal contours are normal. The lungs are clear bilaterally. There is no pneumothorax or pleural effusion. There is no focal osseous or soft tissue abnormality. XR/XR chest 2V IMPRESSION: Normal chest. Electronically signed by: Mario Forman MD 01/20/2025 08:52 AM EDT
[2025-01-20 12:32] LABS: HIV AB/AG Nonreactive (Nonreactive); HIV Num 1 0.07 S/CO (0.00-0.99); Syphilis Screen Nonreactive (Nonreactive)
[2025-01-20 13:02] LABS: Erythrocyte Sedimentation Rate 12 MM/HR (0-20)
[2025-01-21 08:29] LABS: Lutenizing Hormone 45.7 mIU/mL
[2025-01-21 08:49] LABS: CRP High Sensitivity 1.7 mg/L
[2025-01-22 18:44] LABS: Lyme Abs Screen <0.90 index
[2025-01-26 15:23] LABS: Estrogen 161 pg/mL
== END 2025-01-20 07:43 | disposition home or self-care (01) ==
LOC: HO.WFDLDS 07:42
PROVIDERS: PCP Family Medicine; Visit Provider Family Medicine
DX: R41.3 Other amnesia (principal); R09.89 Other specified symptoms and signs involving the circulatory and respiratory systems; R52 Pain, unspecified
CPT/HCPCS: 36415; 71046; 82672; 83001; 83002; 85652; 86141; 86617; 86618; 86780; 87389

== ENCOUNTER → 2025-01-20 08:23 | Outpatient (BNV) | payer BC, SELFPAY | PROVIDERS: PCP Family Medicine; Visit Provider Radiology Diagnostic Radiology | DX: R07.9 Chest pain, unspecified (principal) | CPT/HCPCS: 71046 ==

== ENCOUNTER 2025-02-03 11:13 | Outpatient (AMB) | payer BC, SELFPAY ==
--- NOTE | 2025-02-03 11:10 | A.OFFPC_ITS ---
Intake Visit Reasons: f/u chest x-ray via telemed Intake Note: patient is scheduled for x-ray review Glaze Supervisor Required: No Allergies Penicillins [PCN] Allergy (Mild, Verified 02/03/25 11:12) HIVES penicillin V Allergy (Unknown, Verified 02/03/25 11:12) Hives, fever, vomiting Sulfa (Sulfonamide Antibiotics) [SULFA (SULFONAMIDE ANTIBIOTICS)] Allergy (Unknown, Verified 02/03/25 11:12) ITCHING Medication List - Last Reconciled 02/03/25 by Eric Guerrero MD acyclovir 200 mg PO TID albuterol sulfate 90 mcg/actuation (Ventolin HFA) 2 puffs inhalation Q4-6H PRN 30 days cetirizine (All Day Allergy (cetirizine)) 10 mg PO DAILY PRN 90 days fluconazole 100 mg PO QWEEK insulin lispro (Humalog U-100 Insulin) 1 sliding scale dose subcut USEASDIRECTD Tobacco use date assessed: 01/12/25 Dental Screening Dental Screen Date: 01/12/25 HPI f/u chest x-ray via telemed HPI Details 44 y/o female presents to review chest x -ray due to abnormal lung sounds at L upper lung lugo and complaints of shortness of breath. Also f/u on labwork. She is getting hot flashes and likely is in perimenopause. Chest x-ray 01/20/25 was fine. Reviewed?inflammatory?markers?and?Lyme?testing Negative Patient?is?still?having?myalgias?and?pain Still?having?issues?with?hot?flashes?and?memory?changes ?brain?fog? She?has?been?appointment?with?immunology?to?Will?allergies?in?May. He?has?not?heard?back?from?neuropsychiatry?yet. [facility] Medical History delivery delivered Depression Anxiety Rash Imbalance Memory loss Neuropathy Injury Incontinence Esophageal ulcer Gallbladder attack GERD (gastroesophageal reflux disease) IBS (irritable bowel syndrome) Arthritis Palpitations Asthma Surgical History S/P cholecystectomy S/P tonsillectomy Family History Brother Substance abuse in family High blood pressure Paternal Uncle Substance abuse in family Maternal Grandmother Substance abuse in family High blood pressure Diabetes Thyroid disorder Mother High blood pressure Diabetes Thyroid disorder Father High blood pressure Alcoholism Paternal Grandfather High blood pressure Thyroid disorder Paternal Grandfather High blood pressure Thyroid disorder Unknown Diabetes Alcoholism Paternal Grandmother Alcoholism Maternal Grandfather Alcoholism Social History Housing: House Patient Tobacco Use Status: Never used Tobacco e-Cigarette/Vaping Use: Never Used Second Hand Smoke Exposure: No service: No Current occupational status: employed 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 Cognitive needs: No Hearing needs: No Vision needs: Yes (Patient wears glasses) Questionnaire Thrive Questionnaire Date Thrive assessed: 01/12/25 I am a: Patient What is your living situation today?: I have a steady place to live Within the past 12 months, did the food you bought not last and you didn't have the money to get more?: Never true Within the past 12 months, did you worry whether your food would run out before you got money to buy more?: Never true Do you have trouble paying for medicines?: No Do you have trouble getting transportation to medical appointments?: No Do you have trouble paying your heating and electricity bill?: No Do you have trouble taking care of your child, family member or friend?: No Do you have trouble with day-to-day activities such as bathing, preparing meals, shopping, managing finances, etc.?: No Are you currently unemployed and looking for a job?: No Are you interested in more education?: Yes Please select the resources that you would like help with: None Currently or been in a relationship where the following occur: No concerns reported THRIVE Score: 0 AUDIT C Alcohol Use Questionnaire (AUDIT-C) 3. How often do you have six or more drinks on one occasion?: Never Total Score: 0 TORO-7 AMB Questionnaire TORO-7 Date TORO - 7 assessed: 01/12/25 Source: Developed by Drs. Jj Sanchez, Karlie Perez, Blade Muhammad and colleagues, with an educational kelley from [employer]. Review of Systems Const Details: See?HPI Physical exam (Primary Care) Tobacco/Smoking Status: Tobacco use Status Tobacco use date assessed 01/12/25 02/03/25 11:13 Patient Tobacco Use Status Never used Tobacco 02/03/25 11:13 e-Cigarette/Vaping Use Never Used 02/03/25 11:13 Thrive Assessment: Date of Thrive Assessment Date Thrive assessed 01/12/25 02/03/25 11:13 Currently or been in a relationship where the following occur: No concerns reported Telehealth Telehealth Telehealth Platform: Telephone Location of provider rendering services: practice address Location of patient: address on file Patient Identification confirmed using: Name, : Yes Telehealth method: voice only Patient verbally consented to treatment: Yes Patient verbally consented to billing insurance company: Yes Patient informed of any privacy concerns related to visit: Yes Minutes spent on Phone/Video with Pt.: 25 Coding Level of Care Code Tele Est Pt Level 3 (98103) Diagnoses Shortness of breath R06.02 Menopause Z78.0 Myalgia M79.10 Assessment & Plan Assessment & Plan (1) Shortness of breath: Code(s): R06.02 - Shortness of breath Category: Medical Plan: Noted?some?shortness?of?breath Chest?x-ray?negative. No?significant?shortness?of?br eath?today?though?she?does?have?complaints?of?chronic?fatigue. (2) Menopause: Code(s): Z78.0 - Asymptomatic menopausal state Category: Medical Plan: Hormone?levels?consistent?with?menopause This?may?be?an?underlying?or?contributing?factor?to?her?f atigue?as?well?as?hot?flashes?and? brain?fog (3) Myalgia: Code(s): M79.10 - Myalgia, unspecified site Category: Medical Plan: Achiness?and?pain Sed?rate?CRP?and?Lyme?testing?negative. CBC?negative As?above,?appears?to?be?going?through?menopause?in?his?may?be?contributing No?see?any?evidence?of?an?inflammatory?or autoimmune?disorder?at?this?point Possibly?neurologic Possibly secondary?to?anxiety/depression?or?other psychological condition. - referred?her?to?neuropsychiatry?in?awaiting?response. Possible?fibromyalgia Discussed?with?patient?that?we?will?follow-up?continue?to?investigate?but?also?t hat?if?no?other?cause?is?found,?that?this?m ay?secondary?to?fibromyalgia?or?to?a?psychiatric?disorder.
--- OUTSIDE RECORDS SUMMARY | 2025-02-03 13:32 | XMS_ITS | Patient Health Record ---
Author Organization [facility] Address [address] [place] [address] Care Team Providers Care Duct Layer Name Role Phone Eric Guerrero Primary Care Provider Jj Hamm Unavailable [phone] Reason For Referral No Information Plan Of Treatment Next Appt Details Provider Name:Jj Og , 05/20/2025 09:40:00 AM, [address], [address], [place], [address], Insurance Providers Payer Name Payer Address Payer Phone Subscriber Number Group Number Insured Name Patient Relationship to Insured Coverage Start Date Coverage End Date [facility] [address] [place] [address] [phone] [id number] WENDIE CORONADO Self - patient is the insured
== END 2025-02-03 14:39 | disposition home or self-care (01) ==
LOC: HO.HMCFM 11:13
PROVIDERS: PCP Family Medicine; Visit Provider Family Medicine
DX: R06.02 Shortness of breath (principal); Z78.0 Asymptomatic menopausal state; M79.10 Myalgia, unspecified site

== ENCOUNTER → 2025-02-03 11:13 | Outpatient (BNVA) | payer BC, SELFPAY | PROVIDERS: PCP Family Medicine; Visit Provider Family Medicine | DX: Z13.89 Encounter for screening for other disorder (principal) ==

== ENCOUNTER 2025-05-14 17:48 | Emergency (ER) | payer BC, SELFPAY ==
[2025-05-14 17:54] VITALS: BP 132/76; PULSE 80; O2SAT 100
[2025-05-14 18:00] VITALS: BP 154/80; PULSE 92; RESP 14; TEMP 36.6; O2SAT 100; BMI 27.1
[2025-05-14 18:12] VITALS: PULSE 98
--- NOTE | 2025-05-14 18:24 | ECG_ITS ---
Test Reason : PALPITATIONS Blood Pressure : */* mmHG Vent. Rate : 75 BPM Atrial Rate : 75 BPM P-R Int : 118 ms QRS Dur : 78 ms QT Int : 382 ms P-R-T Axes : 25 75 45 degrees QTcB Int : 426 ms Normal sinus rhythm Normal ECG When compared with ECG of 31-Dec-2017 08:03, No significant change was found Referred By: Akhil Suarez Electronically Signed By: BIA VILLALOBOS MD
[2025-05-14 18:36] LABS: MANUAL DIFF FLAG NO
[2025-05-14 18:37] LABS: Hematocrit 35.8 % (37.0-47.0); Hemoglobin 13.0 g/dl (12.0-16.0); Imm Gran Abs Auto 0.02 X10*3/uL (0.00-0.03); Imm Gran Pct Auto 0.3 % (0.0-0.4); Lymphocytes Absolute Auto 2.6 X10*3/uL (1.2-4.9); Mean Corpuscular HGB Conc 36.3 g/dl (31.0-35.0); Mean Corpuscular Hemoglobin 31.1 pg (27.0-33.0); Mean Corpuscular Volume 85.6 fL (80.0-98.0); NRBC Abs Auto 0.000 X10*3/uL (0.0-0.012); NRBC Pct Auto 0.0 /100WBC (0.0-0.2); Platelet Count 371 X10*3/uL (160-400); Red Blood Count 4.18 X10*6/uL (4.20-5.50); White Blood Count 7.7 X10*3/uL (4.8-10.8)
[2025-05-14 18:55] LABS: Alanine Aminotransferase 19 U/L (0-31); Albumin Level 4.2 g/dL (3.5-5.0); Alkaline Phosphatase 78 U/L (39-117); Anion Gap 16 (12-20); Aspartate Amino Transferase 22 U/L (5-31); Blood Urea Nitrogen 14 mg/dL (9-16); Calcium 9.3 mg/dL (8.4-10.2); Carbon Dioxide 25 mmol/L (22-29); Chloride 108 mmol/L (96-108); Creatinine Clr Calc Pharmacy 62.6; Estimated Glomerular Filt Rate 54; Potassium 3.6 mmol/L (3.3-5.1); Sodium 145 mmol/L (135-145); Total Protein 6.8 g/dL (6.5-8.0)
[2025-05-14 18:58] LABS: Troponin-I High Sensitivity < 2.7 ng/L (<3.5-17.0)
[2025-05-14 19:11] LABS: Appearance Urine Clear; Glucose Urine UA Negative (Negative); PH 7.5 (5.0-9.0); Specific Gravity - Urine <= 1.005 (1.005-1.025)
--- NOTE | 2025-05-14 19:49 | ED_ITS ---
HPI - General Adult General Chief complaint: Arrhythmia/Palpitations Stated complaint: HEART PALPITATIONS X1HR Time Seen by Provider: 05/14/25 18:24 Source: patient, RN notes reviewed and old records reviewed Mode of arrival: EMS Limitations: no limitations History of Present Illness ED Provider: Erick HPI narrative: 44-year-old female with past medical history significant for type 1 diabetes, GERD, asthma, mast cell activation syndrome presents for evaluation of palpitations. Patient reports that she had a fairly average day without excessive activity. She reports that she started to feel palpitations and lightheadedness when standing. This has happened several times in the past but has not lasted more than a few minutes. She reports that this episode has lasted a couple of hours prompting her ER visit. She has been seen by a accounts receivable bookkeeper, market news reporter for her diabetes. She reports that she is waiting to be seen by a leacher She had some associated shortness of breath when this happened. Denies any chest pain She also reports feeling a pressure in her head Related Data Home Medications ?Medication ?Instructions ?Recorded ?Confirmed acyclovir 200 mg capsule 200 mg PO TID 03/03/2402/03 fluconazole 100 mg tablet 100 mg PO QWEEK 03/03/24 insulin lispro 100 unit/mL 1 sliding scale dose subcut 03/03/24 02/03/25 subcutaneous solution (Humalog USEASDIRECTD U-100 Insulin) Previous Rx's ?Medication ?Instructions ?Recorded albuterol sulfate 90 mcg/actuation 2 puff inhalation Q 4-6H PRN 03/03/24 aerosol inhaler (Ventolin HFA) shortness of breath or wheezing 30 days #8.5 grams cetirizine 10 mg tablet (All Day 10 mg PO DAILY PRN jay mcleod 05/10/25 Allergy (cetirizine)) symptoms 90 days #90 tabs Allergies Allergy/AdvReac Type Severity Reaction Status Date / Time Penicillins (PCN) Allergy Mild HIVES Verified 05/14/25 18:04 penicillin V Allergy Unknown Hives, Verified 05/14/25 18:04 fever, vomiting Sulfa (Sulfonamide Allergy Unknown ITCHING Verified 05/14/25 18:04 Antibiotics) (SULFA (SULFONAMIDE ANTIBIOTICS)) Review of Systems 2 Constitutional: Constitutional: Denies body ache(s), Denies chills, Denies fever(s), Reports headache(s), Reports lethargy and Reports weakness Eyes: Eyes: Denies blurry vision ENT: Denies vertigo, Reports dizziness and Reports headache(s) Cardiovascular: Cardiovascular: Reports dyspnea on exertion Respiratory: Respiratory: Denies cough and Reports dyspnea on exertion Gastrointestinal: Gastrointestinal: Denies abdominal pain, Reports nausea and Denies vomiting Musculoskeletal: Musculoskeletal: Denies back pain and Denies tingling Integumentary/Breasts: Skin/Breast: Denies rash Neurologic: Denies vertigo, Reports dizziness, Reports headache(s), Denies tingling and Reports weakness Psychiatric: Psychiatric: Denies anxiety PMFSH Past Medical History Medical History delivery delivered Depression Anxiety Rash Imbalance Memory loss Neuropathy Injury Incontinence Esophageal ulcer Gallbladder attack GERD (gastroesophageal reflux disease) IBS (irritable bowel syndrome) Arthritis Palpitations Asthma Surgical History S/P cholecystectomy S/P tonsillectomy Family History Family History Brother Substance abuse in family High blood pressure Paternal Uncle Substance abuse in family Maternal Grandmother Substance abuse in family High blood pressure Diabetes Thyroid disorder Mother High blood pressure Diabetes Thyroid disorder Father High blood pressure Alcoholism Paternal Grandfather High blood pressure Thyroid disorder Paternal Grandfather High blood pressure Thyroid disorder Unknown Diabetes Alcoholism Paternal Grandmother Alcoholism Maternal Grandfather Alcoholism Social History Social History Housing: House Patient Tobacco Use Status: Never used Tobacco Smoked in Last 30 Days: No e-Cigarette/Vaping Use: Never Used Second Hand Smoke Exposure: No Use of substances other than those prescribed or required for medical reasons: No Advance Directives: No Advance Directives Information Provided: No Do you have a plan to hurt others: No Plan Patient : No service: No Current occupational status: employed 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 Cognitive needs: No Hearing needs: No Vision needs: Yes (Patient wears glasses) Physical Exam ED Vital Signs: Vital Signs - 24 hr 05/14/25 18:00 05/14/25 20:03 Temperature 97.8 F 97.8 F Pulse Rate 92 92 Respiratory Rate 14 14 Blood Pressure 154/80 H 154/80 H Pulse Oximetry 100 100 Oxygen Delivery Method Room Air Room Air BMI result Body Mass Index 27.1 Const General: healthy appearing, comfortable, no acute distress, alert and awake Nutritional Appearance: well nourished Orientation/consciousness: patient oriented x3 HENMT Head: Yes normocephalic and Yes atraumatic Eyes Eyelids: Yes eyelids normal Conjunctivae: conjunctivae normal Sclerae: sclerae normal Corneas: corneas normal Pupils: Equal, round and reactive pupils present EOM: EOMs intact bilaterally Neck Neck: Yes full ROM Resp Effort & Inspection: normal respiratory effort, able to speak in complete sentences and not labored Cardio Rate: regular rate Rhythm: regular rhythm GI Inspection: No distended Palpation (GI): Soft to palpation, not firm, nontender, no guarding and not rigid Skin General skin exam: no rashes or lesions noted and elasticity normal Neuro General: patient oriented x3 Cranial nerves: Yes Equal, round and reactive pupils present and Yes Bilaterally intact EOM present Cognition (Neuro): normal cognition Extrem Other: Moving all extremities well without any obvious deformities Medical Decision Making Medical Decision Making MDM Narrative: 44-year-old female with a past medical history as above presents for evaluation of palpitations. This is happened in the past but on this occasion she reports it lasted a couple of hours. Still at the time of my evaluation she reports her symptoms have resolved, her EKG was normal sinus rhythm without ectopy or ischemic changes. Her labs are reassuring without significant electrolyte abnormalities, thyroid studies within normal limits. She had recent tick-borne panel that was negative. The patient is PERC negative. She does have a serum hCG of 7 but has an IUD in his postmenopausal, she reports she follows closely with your loan officer and I discussed this with the, she will discuss with the elevated hCG with her loan officer. The patient has no chest pain to suggest ACS, EKG is nonischemic and troponin is negative. Given that the patient is currently asymptomatic, with a negative workup, she will be discharged to follow up with the cardiology for her palpitations Differential Diagnosis Differential Diagnoses: The differential diagnosis associated with the presentation includes Anxiety Arrhythmia Palpitations SVT Pheochromocytoma Admission/Observation Consideration of admission/observation: Escalation of care including admission/observation considered Lab Data [facility] Lab Attestation statement: I reviewed the patient's lab results. As above 05/14/25 18:30 05/14/25 18:30 Labs: Lab Results 05/14/25 05/14/25 Range/Units 18:30 19:02 WBC 7.7 (4.8-10.8) X10*3/uL RBC 4.18 L (4.20-5.50) X10*6/uL Hgb 13.0 (12.0-16.0) g/dl Hct 35.8 L (37.0-47.0) % MCV 85.6 (80.0-98.0) fL MCH 31.1 (27.0-33.0) pg MCHC 36.3 H (31.0-35.0) g/dl RDW 12.1 (11.0-16.0) % Plt Count 371 (160-400) X10*3/uL MPV 8.8 L (9.4-12.3) fL Immature Gran % (Auto) 0.3 (0.0-0.4) % Neut % (Auto) 53.0 (45-73) % Lymph % (Auto) 33.3 (20-40) % [place] % (Auto) 8.3 (2-11) % Eos % (Auto) 4.3 H (0-4) % Baso % (Auto) 0.8 (0-2) % Lymph # (Auto) 2.6 (1.2-4.9) X10*3/uL [place] # (Auto) 0.6 (0.1-1.2) X10*3/uL Eos # (Auto) 0.3 (0.0-0.4) X10*3/uL Baso # (Auto) 0.1 (0.0-0.2) X10*3/uL Abs Immat Gran (auto) 0.02 (0.00-0.03) X10*3/uL Absolute Neuts (auto) 4.1 (2.0-8.3) x10*3/uL Absolute Nucleated RBC 0.000 (0.0-0.012) X10*3/uL Nucleated RBC % (auto) 0.0 (0.0-0.2) /100WBC Sodium 145 (135-145) mmol/L Potassium 3.6 (3.3-5.1) mmol/L Chloride 108 (96-108) mmol/L Carbon Dioxide 25 (22-29) mmol/L Anion Gap 16 (12-20) BUN 14 (9-16) mg/dL Creatinine 1.10 (0.5-1.4) mg/dL Estim Creat Clear Calc 62.6 Estimated GFR 54 Random Glucose 132 H (60-115) mg/dL Calcium 9.3 (8.4-10.2) mg/dL Total Bilirubin 0.2 (0.0-1.0) mg/dL AST 22 (5-31) U/L ALT 19 (0-31) U/L Alkaline Phosphatase 78 (39-117) U/L Troponin I High Sens < 2.7 (<3.5-17.0) ng/L Total Protein 6.8 (6.5-8.0) g/dL Albumin 4.2 (3.5-5.0) g/dL TSH 1.09 (0.32-4.0) uIU/mL Beta HCG, Quant 7 mIU/mL Urine Color Yellow Urine Appearance Clear Urine pH 7.5 (5.0-9.0) Ur Specific [place] <= 1.005 (1.005-1.025) Urine Protein Negative (Neg-Trace) mg/dL Urine Glucose (UA) Negative (Negative) mg/dL Urine Ketones Negative (Negative) mg/dL Urine Blood Negative (Negative) Urine Nitrite Negative (Negative) Ur Leukocyte Esterase Negative (Negative) Urine RBC 0-2 (0-2) /HPF Urine WBC 0-5 (0-5) /HPF Ur Squamous Epith Cells 0-2 (0-2) /HPF Urine Bacteria None Seen (None Seen) Hyaline Casts 0-2 (0-2) /LPF Independent Interpretation I performed an independent interpretation of an: EKG (Normal sinus rhythm with a rate of 75 beats minute. No ectopy or ischemic changes) and Plain X-Ray Radiology Impression Discussion of test interpretation with radiology: I have reviewed the radiologist's reading. Radiologist Impression: FINDINGS: The cardiac, hilar, and mediastinal contours are normal. The lungs are clear bilaterally. There is no pneumothorax or pleural effusion. There is no focal osseous or soft tissue abnormality. XR/XR chest 2V IMPRESSION: Normal chest. Electronically signed by: Mario Forman MD 01/20/2025 08:52 AM EDT RP Discharge Plan Discharge Clinical Impression: Heart palpitations Patient Disposition: Home, Self-Care Instructions: Heart Palpitations (ED) Additional Instructions: Your workup in the ER today was reassuring. This includes your blood work, EKG Your serum hCG level was 7 which is not necessarily concerning, but you can follow this up with your OBGYN when you have your IUD removed Follow up with Cardiology in the number provided. You may return to the ER for new or worsening symptom Prescriptions: No Action cetirizine [All Day Allergy (cetirizine)] 10 mg tablet 10 mg PO DAILY PRN (Reason: allergy symptoms) 90 Days Qty: 90 3RF insulin lispro [Humalog U-100 Insulin] 100 unit/mL solution 1 sliding scale dose subcut USEASDIRECTD acyclovir 200 mg capsule 200 mg PO TID albuterol sulfate [Ventolin HFA] 90 mcg/actuation HFA aerosol inhaler 2 puff inhalation Q4-6H PRN (Reason: shortness of breath or wheezing) 30 Days Qty: 8.5 4RF fluconazole 100 mg tablet 100 mg PO QWEEK Referrals: [facility] [place] [facility] [Provider Group] Referral Note: palpitations Interventions: ED Discharge Assessment Last Done: 05/14/25 20:03 Discharge Date/Time: 05/14/25 20:45 Print Language: Austrian
[2025-05-14 20:03] VITALS: BP 154/80; PULSE 92; RESP 14; TEMP 36.6; O2SAT 100
== END 2025-05-14 20:45 | disposition home or self-care (01) ==
PROVIDERS: Physician Assistant; Emergency Provider Emergency Medicine; PCP Family Medicine
DX: R00.2 Palpitations (principal); E10.9 Type 1 diabetes mellitus without complications; I10 Essential (primary) hypertension; K21.9 Gastro-esophageal reflux disease without esophagitis; J45.909 Unspecified asthma, uncomplicated; Z79.899 Other long term (current) drug therapy
CPT/HCPCS: 36415; 80053; 81001; 84443; 84484; 84702; 85025; 93005; 99283; 99285

== ENCOUNTER → 2025-05-14 18:24 | Outpatient (BNV) | payer BC, SELFPAY | PROVIDERS: Emergency Provider Emergency Medicine; PCP Family Medicine; Visit Provider Internal Medicine Cardiovascular Disease | DX: R00.2 Palpitations (principal) | CPT/HCPCS: 93010 ==

== ENCOUNTER 2025-06-01 13:47 | Outpatient (AMB) | payer BC, SELFPAY ==
[2025-06-01 13:57] VITALS: BP 130/82; PULSE 76; BMI 28.4
--- NOTE | 2025-06-01 13:57 | A.OFFVIS_ITS ---
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: No Allergies Penicillins (PCN) Allergy (Mild, Verified 06/01/25 14:03) HIVES penicillin V Allergy (Unknown, Verified 06/01/25 14:03) Hives, fever, vomiting Sulfa (Sulfonamide Antibiotics) (SULFA (SULFONAMIDE ANTIBIOTICS)) Allergy (Unknown, Verified 06/01/25 14:03) ITCHING Medication List - Last Reconciled 06/01/25 by DARWIN Caballero acyclovir 200 mg PO TID albuterol sulfate 90 mcg/actuation (Ventolin HFA) 2 puffs inhalation Q4-6H PRN 30 days cetirizine (All Day Allergy (cetirizine)) 10 mg PO DAILY PRN 90 days fluconazole 150 mg PO QWEEK insulin lispro (Humalog U-100 Insulin) 1 sliding scale dose subcut USEASDIRECTD HPI HPI [facility] [employer] [facility] [place] f/u irregular HR Sob: Details: Kamille is a 44-year-old female presenting for cardiology consultation for symptoms of heart palpitations, lightheadedness and shortness of breath. The shortness of breath is new for her this past year and has affected her ability to to her usual physical activities. She does have history of asthma but does not feel this is related. Heart palpitations have been present for over a year, with episodes reaching over 120 beats per minute, without known trigger. Episodes can occur at rest and have prompting medical evaluation without significant findings. She has Type 1 Diabetes Mellitus diagnosed in teenage years, with insulin resistance and fluctuating blood sugar levels. Symptoms of dysautonomia include heat and cold sensitivity, brain fog, heart palpitations and muscle tightness. Diagnosed with Mast Cell Activation Syndrome in February, presenting with palpitations, dizziness, and flushing. Started on medication management with improvement in brain fog but persistent shortness of breath and fatigue. Family history includes atrial fibrillation in brother and pacemakers in both parents. Shortness of breath with exertion has led to activity modification. Nonsmoker and No alcohol use. 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 Unable to work recently due to symptoms [facility] Medical History (Updated 06/01/25 @ 15:02 by Callie Durham NP-C) delivery delivered Depression Anxiety Rash Imbalance Memory loss Neuropathy Injury Incontinence Esophageal ulcer Gallbladder attack GERD (gastroesophageal reflux disease) IBS (irritable bowel syndrome) Arthritis Palpitations Asthma Surgical History S/P cholecystectomy S/P tonsillectomy Family History Brother Substance abuse in family High blood pressure Paternal Uncle Substance abuse in family Maternal Grandmother Substance abuse in family High blood pressure Diabetes Thyroid disorder Mother High blood pressure Diabetes Thyroid disorder Father High blood pressure Alcoholism Paternal Grandfather High blood pressure Thyroid disorder Paternal Grandfather High blood pressure Thyroid disorder Unknown Diabetes Alcoholism Paternal Grandmother Alcoholism Maternal Grandfather Alcoholism Social History Housing: House Patient Tobacco Use Status: Never used Tobacco e-Cigarette/Vaping Use: Never Used Second Hand Smoke Exposure: No service: No Current occupational status: employed 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 Cognitive needs: No Hearing needs: No Vision needs: Yes (Patient wears glasses) Review of Systems Const All systems reviewed & are unremarkable except as noted in HPI and below ENT Details: brain fog Reports dizziness Card Details: chest heavy Denies chest pain, Denies chest pain at rest, Denies chest pain with activity, Denies rapid heart rate, Denies pedal edema, Denies edema, Denies leg edema, Denies lightheadedness, Denies palpitations, Denies dyspnea, Reports dyspnea on exertion and Denies orthopnea Resp Denies cough, Denies dyspnea and Reports dyspnea on exertion GI Denies hematochezia and Denies change in stool character Musc Denies abnormal gait, Denies limited range of motion, Denies muscle cramps, Denies muscle weakness, Denies numbness, Denies radiating pain into limb, Denies stiffness and Denies tingling Neuro Denies abnormal gait, Reports dizziness, Denies numbness and Denies tingling Endo Denies palpitations Physical Exam Vital Signs: Last Vital Signs Pulse 76 06/01/25 13:57 BP 130/82 06/01/25 13:57 BMI result Body Mass Index 28.4 Const General: cooperative, healthy appearing, comfortable and no acute distress Orientation/consciousness: patient oriented x3 Neck Neck: Yes normal visual inspection Resp Effort & Inspection: normal respiratory effort Auscultation: clear to auscultation bilaterally, no rales, no rhonchi and no wheezes Cardio Rate: regular rate Rhythm: regular rhythm Heart sounds: S1 normal heart sound present, S2 normal heart sound present, no gallops, no murmurs and no rubs Neuro General: patient oriented x3 Extrem General: Yes normal to inspection and No no pedal edema Psych Appearance: grossly normal Mental Status: mental status grossly normal Speech and movement: Normal speech and movement present Office Procedures EKG Details: Today, read by me, normal sinus rhythm, right axis, rate 76, Qtc 432ms [id number], Complete Assessment & Plan Assessment & Plan (1) Palpitations: Code(s): R00.2 - Palpitations Category: Medical Plan: Reported heart palpitations, rapid heartbeat at very times. Recent ER evaluation for symptoms with no significant findings. TSH 1.09. Recent tick panel reported as negative. EKG today sinus rhythm, right axis, rate 76, normal [place], QRS and QTC intervals. Instructed on good hydration, avoidance of stimulants. Will check echocardiogram to assess for structural heart disease. Will check Holter monitor to assess for average heart rates and arrhythmia. She has a multitude of symptoms and recent diagnosis of mast cell activation syndrome. She could have POTS. Will order a tilt-table test for further evaluation. Cardiology follow-up when test results are available. (2) Pre-syncope: Code(s): R55 - Syncope and collapse Category: Medical Plan: As above. No full syncopal events. (3) Shortness of breath: Code(s): R06.02 - Shortness of breath Category: Medical Plan: Newer shortness of breath in the last year. She is not fluid overloaded on exam. EKG is nonischemic. She does have cardiac risk factors of longstanding type 1 diabetes. Will be checking echocardiogram. Will order exercise stress test to evaluate for ischemia. (4) Mast cell activation syndrome: Code(s): D89.40 - Mast cell activation, unspecified Category: Medical Plan: Recent diagnosis. Followed by another provider. (5) Type 1 diabetes: Code(s): E10.9 - Type 1 diabetes mellitus without complications Category: Medical Plan: Diagnosed age 9. Has a insulin pump. Reports history of variable sugars. Plan During the consultation, I discussed with the patient the potential cardiac causes of her symptoms, including the possibility of POTS, arrhythmias, CAD. I explained the diagnostic tests, including the Holter monitor, tilt table test, echocardiogram, and stress test, and their roles in evaluating her condition. We discussed the importance of hydration and the use of compression stockings as initial management for POTS. I informed her that follow-up would be necessary to review test results and adjust her treatment plan accordingly. Orders: Orders CA echo transthoracic complete Today R00.2 - Palpitations, R06.02 - Shortness of breath ECG Tilt Table Test Today R00.2 - Palpitations, R55 - Syncope and collapse CA stress test Today R00.2 - Palpitations, R06.02 - Shortness of breath, R55 - Syncope and collapse ECG 3 day holter monitor Today R00.2 - Palpitations Patient Instructions: - Stay well hydrated to help manage symptoms. - Consider wearing compression stockings to improve circulation. - Follow up with scheduled diagnostic tests and appointments. - Report any new or worsening symptoms to your healthcare provider. Patient was informed and verbally consented to the use of an ambient scribe for clinic note documentation during this visit. Visit time spent on chart review, interview, assessment, orders, documentation. Coding Level of Care Code New Pt Level 4 (33187) Complex EM visit Add On G2211 Diagnoses Palpitations R00.2 Pre-syncope R55 Shortness of breath R06.02 Mast cell activation syndrome D89.40 Type 1 diabetes E10.9 CPT Codes EKG - CPT: 92899-[id number], Complete ([id number]) Time Spent (min) 40
--- OUTSIDE RECORDS SUMMARY | 2025-06-01 15:05 | XMS_ITS | Patient Health Record ---
Author Organization [facility] Address [address] [place] [address] Care Team Providers Care Assembler Metal Furniture Name Role Phone Eric Guerrero Primary Care Provider UnavailJj Torre Unavailable [phone] Allergies Allergen (clinical drug ingredient) Drug/Non Drug Allergy documented on EMR Reaction Allergy Type Onset Date Status Penicillin Unknown Drug Allergy Active sulfamethoxazole / trimethoprim Bactrim Unknown Drug Allergy Active Reason For Referral No Information Medications Medication SIG (Take, Route, Frequency, Duration) Notes Start Date End Date Status Fluconazole 200 MG 1 tablet Orally for 10 day(s) 05/20/2025 Active HumaLOG 100 UNIT/ML as directed Subcutaneous 05/20 Active Allergy (Cetirizine) 10 MG 1 tablet Oral ly Once a day for 30 day(s) 05/20/2025 Active Cholestyramine 4 GM/DOSE Use anywhere fr om 1/4 of a scoop to 1 scoop mixed in 8 ounces of water or orange juice Orally Once or Twice a day for diarrhea for 30 days 05/23/2025 Active Acyclovir 200 MG 1 capsule Orally Thr ee times a day for 10 day(s) 05/20/2025 Active Immunizations Vaccine Route Administration Date Status Comme nts Influenza Unknown 05/20/2025 Refused Social History Tobacco Use: Social History Observation Description Date Details (start date - stop date) Never Smoker NA - NA Tobacco Control (Standard) Question Answer Notes Tobacco use: Nonsmoker AUDIT-C (Standard) Question Answer Notes Did you have a drink containing alcohol in the p ast year? No Points 0 Interpretation Negative Section Notes: Former heavy EtOH--sober sin ce 2010; nonsmoker Problems Problem Type SNOMED Code ICD Code Onset Dates Problem Status W/U Status Risk Notes Problem Colon cancer screening (Z12.11) Active confirmed Problem Irritable bowel syndrome with diarrhea (093638446) Irritable bowel syndrome with diarrhea (K58.0) Active confirmed Vital Signs Temperature 98.9 degrees Fahrenheit 05/20/2025 Blood pressure diastolic 01 mm Hg 05/20/2025 Height 64.5 in 05/20/2025 Blood pressure systolic 001 mm Hg 05/20/2025 Weight 166.8 lbs 05/20/2025 BMI 28.19 kg/m2 05/20/2025 Procedures Procedure Date Ordered Date Performed Result Body Sit e COLONOSCOPY 05/20/2025 N/A Encounters Encounter Location Date Provider Diagnosis [facility] [address] [place] [phone] 05/20/2025 Jj Og Colon cancer screening Z12.11 and Irritable bowel syndrome with diarrhea K58.0 [facility] [address] [place] [phone] 05/20/2025 Jj Og Assessments Encounter Date Diagnosis (ICD Code) Assessment Notes Treatment Notes Treatment Clinical Notes Section Notes 05/20/2025 Colon cancer screening (ICD-10 - Z12.11) Overall, Kamille appears well. Given her age and good clinical appearance, I did recommend a colonoscopy primarily for screening purposes. We did review the rationale for this in regard to colon cancer prevention. Full consent has been obtained for this, including risks of bleeding and perforation. The procedure will be done with monitored anesthesia care. She was given the below instructions regarding adjustment of her medications for the procedure. In regard to her irritable bowel syndrome with diarrhea I shall give her a prescription to try cholestyramine to see if that might help alleviate some of the diarrhea given her previous history of a cholecystectomy. I have also advised her to use Imodium as needed. I will obtain biopsies from the colon to rule out underlying microscopic colitis. In regard to the acyclovir for the previous herpes esophagitis I have given her the name of Dr. Diana from infectious disease to see if she can follow-up with her about that. She may not need to be on that chronically at this point since she has been on it for many years and from the history it sounds like the herpes esophagitis was probably in relation to her alcohol abuse with associated poor nutrition and relative immunocompromise . Kamille was comfortable with this plan. Thank you again for allowing me to participate in Kamille's care. I shall continue to keep you advised of her progress. 05/20/2025 Irritable bowel syndrome with diarrhea (ICD-10 - K58.0) I will send over a prescription for cholestyramine-- -you can adjust that as needed for the diarrhea. You can also try some over the counter Imodium Overall, Kamille appears well. Given her age and good clinical appearance, I did recommend a colonoscopy primarily for screening purposes. We did review the rationale for this in regard to colon cancer prevention. Full consent has been obtained for this, including risks of bleeding and perforation. The procedure will be done with monitored anesthesia care. She was given the below instructions regarding adjustment of her medications for the procedure. In regard to her irritable bowel syndrome with diarrhea I shall give her a prescription to try cholestyramine to see if that might help alleviate some of the diarrhea given her previous history of a cholecystectomy. I have also advised her to use Imodium as needed. I will obtain biopsies from the colon to rule out underlying microscopic colitis. In regard to the acyclovir for the previous herpes esophagitis I have given her the name of Dr. Diana from infectious disease to see if she can follow-up with her about that. She may not need to be on that chronically at this point since she has been on it for many years and from the history it sounds like the herpes esophagitis was probably in relation to her alcohol abuse with associated poor nutrition and relative immunocompromise . Kamille was comfortable with this plan. Thank you again for allowing me to participate in Kamille's care. I shall continue to keep you advised of her progress. 05/20/2025 Other You can try to see Dr. Diana from Infectious Disease at [facility] Overall, Kamille appears well. Given her age and good clinical appearance, I did recommend a colonoscopy primarily for screening purposes. We did review the rationale for this in regard to colon cancer prevention. Full consent has been obtained for this, including risks of bleeding and perforation. The procedure will be done with monitored anesthesia care. She was given the below instructions regarding adjustment of her medications for the procedure. In regard to her irritable bowel syndrome with diarrhea I shall give her a prescription to try cholestyramine to see if that might help alleviate some of the diarrhea given her previous history of a cholecystectomy. I have also advised her to use Imodium as needed. I will obtain biopsies from the colon to rule out underlying microscopic colitis. In regard to the acyclovir for the previous herpes esophagitis I have given her the name of Dr. Diana from infectious disease to see if she can follow-up with her about that. She may not need to be on that chronically at this point since she has been on it for many years and from the history it sounds like the herpes esophagitis was probably in relation to her alcohol abuse with associated poor nutrition and relative immunocompromise . Kamille was comfortable with this plan. Thank you again for allowing me to participate in Kamille's care. I shall continue to keep you advised of her progress. Plan Of Treatment Pending Test Test Name Order Date COLONOSCOPY 05/20/2025 Next Appt Details Provider Name:Jj Og , 08/18/2025 09:30:00 AM, [address] [place] [address] , [place], [place], [phone], Insurance Providers Payer Name Payer Address Payer Phone Subscriber Number Group Number Insured Name Patient Relationship to Insured Coverage Start Date Coverage End Date [facility] [address] [place] [address] [id number] IVONNE KAMILLE Self - patient is the insured 5 Medical (General) History Medical History History ICD Code IDDM--has a pump Urinary incontinence Irritable bowel syndrome Herpes esophagitis in EGD 2010 with me-- I sent her to see an ID specialist Denies [place],CVA,Lung disease,renal disease Negative colonoscopy in 2010 with me Mast cell activation syndrome Surgical History Surgery Date(Month/Year) right oopherectomy 2018 2008 [facility] 2004 tonsilectomy 1993
== END 2025-06-01 15:25 | disposition home or self-care (01) ==
LOC: HO.HCS 13:48
PROVIDERS: PCP Family Medicine; Visit Provider Nurse Practitioner Family
DX: R00.2 Palpitations (principal); R55 Syncope and collapse; R06.02 Shortness of breath; D89.40 Mast cell activation, unspecified; E10.9 Type 1 diabetes mellitus without complications
CPT/HCPCS: 93010; 99204

== ENCOUNTER → 2025-06-01 13:47 | Outpatient (BNVA) | payer BC, SELFPAY | PROVIDERS: PCP Family Medicine; Visit Provider Nurse Practitioner Family | DX: R00.2 Palpitations (principal) | CPT/HCPCS: 93005 ==

== ENCOUNTER → 2025-06-11 11:02 | Outpatient (REF) | payer BC, SELFPAY ==
--- OUTSIDE RECORDS SUMMARY | 2025-06-08 23:59 | XMS_ITS | Continuity of Care Document ---
Author Organization [facility] Address [address] [place] [address]- Care Team Providers Care Supervisor Major Appliance Assembly Name Role Phone Not on Staff, PCP Primary Care Physician Unavail able Encounter [facility] Date(s): 06/01/25 - 06/08/[facility] [address] [place] [id number] Attending Physician: Sena Nagy MD Encounter Type: Office Visit Allergies, Adverse Reactions, Alerts Substance Criticality Severity [...] toxoids (DT) 01/20/07 Recorded 1Result Comment: [10/25/2017] [facility] [id number] 2Result Comment: [04/17/2017] [facility] 3Result Comment: [08/06/2014] documentation received from records Medications acyclovir 200 mg oral capsule 1 capsule, By Mouth, 2 times a day, # 180 capsule, 4 Refills, Maintenance, 02/18/25 10:27:00 AM EDT, [facility]/pharmacy #[id number], 163, cm, 02/18/25 9:03:00 EDT, Height Start Date: 02/18/25 Status: Ordered Quantity: 180.0 Unit: capsule Repeat number: 5 cranberry oral capsule 1 tablet, By Mouth, Daily in AM, 0 Refills, Maintenance, 07/09/19 10:09:09 AM EDT Start Date: 07/09/19 Status: Ordered Repeat number: 1 fluconazole 150 mg oral tablet 1 tablet, By Mouth, Every week, X180 DAYS., # 4 tablet, 12 Refills, Soft Stop, 02/18/25 10:27:00 AM EDT, [facility]/pharmacy #[id number], 163, cm, 02/18/25 9:03:00 EDT, Height Start Date: 02/18/25 Status: Ordered Quantity: 4.0 Unit: tablet Repeat number: 13 Humalog 100 u/ml subcutaneous injection See Instructions, Subcutaneous Injection, Use as directed for Diabetes mellitus type 1. (Max Dose =50 units/day). 10 mL vials, # 3 vials, 5 Refills, Maintenance, 01/20/14 4:13:26 PM EDT, [facility]/pharmacy #[id number] Start Date: 01/20/14 Stop Date: 07/19/14 Status: [...] Date: 12/24/22 Status: Ordered Repeat number: 1 Miscellaneous Rx 0 Refills, Maintenance, Lemon balm, 02/18/25 9:10:00 AM EDT Start Date: 02/18/25 Status: Ordered Repeat number: 1 Natrol SAMe 200 mg oral tablet 2 tablet = 400 mg, By Mouth, Daily, 0 Refills, Maintenance, 12/24/22 11:28:00 AM EDT, Partial fill upon patient request if the prescription is for a schedule II opioid drug. Start Date: 12/24/22 Status: Ordered Repeat number: 1 ProAir HFA 90 mcg/inh inhalation aerosol with adapter 2 puffs, Inhalation, 4 times a day, PRN Wheezing/Shortness of Breath, # 1 bottle, 1 Refills, Maintenance, 11/23/14 10:52:36 AM EST, [facility]/pharmacy #[id number], 2 puffs Inhalation 4 times a day,PRN:Wheezing/Shortness [...] Effective Dates Status H ealth Status Informant Vulvovaginitis due to yeast Confirmed Active Diabetes mellitus with neuropathy Confirmed Active Genital herpes in women Confirmed Active Long-term insulin use Confirmed Active Mixed hyperlipidemia Confirmed Active Well woman exam with routine gynecological exam Confirmed Active Perimenopause Confirmed Active Diabetic retinopathy of both eyes Confirmed Active Diabetes mellitus type 1 Confirmed Active Vitamin D deficiency Confirmed Active Social History Social History Type Response Smoking Status Never smoker entered on: 09/16/13 Sex Sex Representation Female (finding) Radiology * Event Display: [facility] MAINTENANCE ANALYST Transvaginal, Complete * Event Display: [facility] MAINTENANCE ANALYST Transvaginal, Complete Authored Date: [id number] Gynecological Report Signed Final 06/01/2025 8:55 PM Patient Info ID: [id number] WENDIE Dillard: MCELWE Umesh 06/01/2025 1:01 PM FMRN: Name: Date: [id number] 97 9 (44 y) (F) Performed By Attending: Antonio Bergeron MD Referred By: Sena Nagy MD Performed By: Mary Amaro RDNY Ref Address: [place] [address] [address] Location: [facility] #[id number] Service(s) Provided Code MAINTENANCE ANALYST Vaginal [id number] ([id number]) Indications Code Elevated serum hCG R79.89 History ------- Age: 44 P: 1 Menses: Perimenopausal Previous Pelvic Surgery X 1 (twins) Right salpingo-oophorectomy Hx Comments Pt has IUD. Went to the ER on 05/14/25 and HCG was 7. Uterus ------ Uterus: Present Position: Anteverted Anteflexed Size (cm) L: 7.93 H: 3.46 Description: Heterogeneous echotexture Endometrium Endometrium: Visualized Thickness (mm): 3.0 Right Ovary Status: Surgically absent Left Ovary Staus: Visualized Size (cm) L: 2.42 W: 1.38 H: 1.44 Vol.(ml): 2.52 Comments -------- Uterus anteverted with heterogeneous myometrial echotexture, no discrete myometrial lesions seen. Cervix appears wnl. Endometrium with IUD seen centrally located at the fundus, appears to be in correct position. Right ovary surgically absent. Left ovary wnl. No adnexal masses seen. No free fluid within the cul-de-sac. Impression IUD in situ.Unremarkable pelvic ultrasound. Antonio Bergeron MD Electronically Signed Final Report 06/01/2025 8:55 PM * Event Display: [facility] MAINTENANCE ANALYST Transvaginal, Complete Authored Date: Please click on pdf link to open report Patient Care team information Care Team Personnel Name: Chon Zarate RN Position: [facility] RN Member Role: Primary Care Nurse Name: Isabel Baker MD Position: [facility] LOAN MANAGER MD Member Role: Lif[employer] LOAN MANAGER Physician Address: [address] [place] [address]'s [facility] Senior Process Control Tech [address] Telecom: Name: Not on Staff, PCP Position: [facility] Physician (General Medicine) Member Role: PCP Care Team Related Persons Name: DARIEL FLORES Name: TAMMIE CORONADO Name: TAMMIE HERNANDEZ Insurance Providers Guarantor name: WENDIE CORONADO Health Plan Information #: 1 Payer: [facility] Payer Identifier: Member Number: [id number] Group Number: [id number] Subscriber Identifier: [id number] Relationship to Subscriber: self Coverage Type: NA Coverage Verification Date: NA Telecom: NA Address: Health Plan Information #: 2 Payer: [employer]ig [employer] Payer Identifier: NA Member Number: [id number] Group Number: [id number] Subscriber Identifier: [id number] Relationship to Subscriber: self Coverage Type: MEDICAID Coverage Verification Date: HOMERO Telecom: HOMERO Address: NA
--- NOTE | 2025-06-11 11:03 | HM_ITS ---
Conclusion: 1. Patient was monitored for total period of 3 days 2. Baseline was normal sinus rhythm with average heart of 87 beats per minute 3. No significant pauses noted 4. No significant arrhythmias noted with rare PACs noted 5. Patient marked the counter 5 times with multiple symptoms reported including symptoms of shortness of breath, dizziness, rapid pounding, correlating with sinus rhythm or sinus tachycardia. MTDD
--- NOTE | 2025-06-11 11:03 | CA_ITS ---
Acquisition Time: 2025-06-11 11:13:04 Total Exercise Time: 00:09:25 Test Indications: Dyspnea,Lightheadedness Medications: SEE H&P Protocol: KENYATTA Max HR: 157 BPM 89% of Pred: 175 BPM Max BP: 170/80 mmHG Max Work Load: 10.7 METS Exercise stress test with exercise 9 mins 25 secs of Kenyatta Protocol, achieving 89% MPHR, with reports of lightheadedness and SOB, without any arrythmias, with normotensive response to exercise. Without any EKG changes meeting criteria for ischemia. In recovery, pt's breathing improved and lightheadedness returned to baseline. Test reviewed with Dr. Ro. Referred By: Callie Durham Electronically Signed By: Alexi Lopez
--- OUTSIDE RECORDS SUMMARY | 2025-06-11 11:43 | XMS_ITS ---
Author Name [facility] Organization Unknown Care Team Organization Name Specialty Phone Email Start Date End Da te [employer] Insurance 10/03/2024
--- OUTSIDE RECORDS SUMMARY | 2025-06-11 11:43 | XMS_ITS | Encounter Summary ---
Author Organization [facility] Address [address] [place] [address] Phone Care Team Providers Care Kinesiotherapist Name Role Phone Amaya Hatfield MD Unavailable Jj Baldwin DO Unavailable [phone] Elba Bailey MD Unavailable [phone] Isabel Baker MD Unavailable [phone] Sena Nagy MD Unavailable Alexi Nunes MD Primary Care Provide r Pcp, Unknown Primary Care Provider Unavailabl e Pcp, Unknown Primary Care Provider Unavailabl e Eric Guerrero MD Primary Care Provider Reason for Referral * Physical Therapy (Routine) - Closed Specialty Diagnoses / Procedures Referred By Kayla hill Referred To Contact Physical Therapy Diagnoses Encounter for rehabilitation System, Provider Not In, [facility] [address] [address] Phone: tel: Referral ID Status Reason Start Date Expiration Date Visits Re quested Visits Authorized [id number] Closed 10/21/2018 10/21/2019 10 10 Encounter Details Date Type Department Care Team (Latest Contact Info) Description 10/08/2018 Transcribe Orders [facility] [address] [place] [id number] Alexi Nunes MD [address] [facility] [address] [place] [address] Encounter for rehabilitation (Primary Dx) Social History Tobacco Use Types Packs/Day Years Used Date Smoking Tobacco: Never Assessed Comments Unknown Sex and Gender Information Value Date Recorded Sex Assigned at Female 09/17/2022 10:09 AM EST Legal Sex Female 9:23 PM EDT Gender Identity Female 09/17/2022 10:09 AM EST Sexual Orientation Straight 09/17/2022 10 :09 AM EST documented as of this encounter Plan of Treatment Upcoming Encounters Date Type Department Care Team ([facility] Contact Info) Description 07/05/2025 11:40 AM EDT Office Visit [facility] [address] [place] [address] [place] [address] Elba Bailey MD [address] [place] [phone] 10/11/2025 1:00 PM EST Nutrition [facility] [address] [place] [address] Sivan Montes De Oca LDN [address] [place] [phone] 01/10/2026 11:30 AM EDT Office Visit [facility] [address] [place] [address] Elba Bailey MD [address] [place] [address] Scheduled Referrals Name Type Priority Associated Diagnoses Orde r Schedule Ambulatory referral to [facility] Physical Therapy Outpatient Referral Routine Encounter for rehabilitation Ordered: 10/08/2018 documented as of this encounter Visit Diagnoses Diagnosis Encounter for rehabilitation- Primary documented in this encounter Care Teams Kinesiotherapist Relationship Specialty Start Date End Date Alexi Nunes MD [address] [address] PCP - General Family Medicine 09/22/18 06/24/23 Pcp, Unknown PCP - General 06/25/23 09/24/23 Pcp, Unknown PCP - General 09/25/23 12/28/24 Eric Guerrero MD [address] [place] [address] PCP - General Family Medicine 12/29/24 Amaya Hatfield MD [address] [place] [phone] [email or web address] Historical LMR Provider 07/29/17 10/21/21 Jj Baldwin DO [address] [place] [phone] [email or web address] Historical LMR Provider 07/29/17 10/21/21 Elba Bailey MD [address] [place] [phone] [email or web address] Historical LMR Provider 07/29/17 Isabel Baker MD [address] [place] [address] Historical LMR Provider 07/29/17 2 [place] [address] [email or web address] Historical LMR Provider 07/29/17 10/21/21 documented as of this encounter Additional Source Comments The information contained in this document represents components of the legal health record. It is not the complete legal health record.[facility]
--- OUTSIDE RECORDS SUMMARY | 2025-06-11 11:43 | XMS_ITS | Patient Health Record ---
Author Organization [facility] Address [address] [place] [address] Care Team Providers Care Senior Clinical Research Associate Name Role Phone Eric Guerrero Primary Care Provider UnavailJj Torre Unavailable [phone] Allergies Allergen (clinical drug ingredient) Drug/Non Drug [...] confirmed Problem Irritable bowel syndrome with diarrhea (669565181) Irritable bowel syndrome with diarrhea (K58.0) Active confirmed Vital Signs Temperature 98.9 degrees Fahrenheit 05/20/2025 Blood pressure diastolic 01 mm Hg 05/20/2025 Height 64.5 in 05/20/2025 Blood pressure systolic 001 mm Hg 05/20/2025 Weight 166.8 lbs 05/20/2025 BMI 28.19 kg/m2 05/20/2025 Procedures Procedure Date Ordered Date Performed Result Body Sit e COLONOSCOPY 05/20/2025 N/A Encounters Encounter Location Date Provider Diagnosis [facility] [address] [place] [phone] 05/20/2025 Jj Og Colon cancer screening Z12.11 and Irritable bowel syndrome with diarrhea K58.0 [facility] [address] [place] [phone] 05/20/2025 Jj Og Assessments Encounter Date Diagnosis [...] see Dr. Diana from Infectious Disease at [facility] Overall, Kamille appears well. [...] Provider Name:Jj Og , 08/18/2025 09:30:00 AM, [address] [place] [address] , [place], [place], [phone], Insurance Providers Payer Name Payer Address Payer Phone Subscriber Number Group Number Insured Name Patient Relationship to Insured Coverage Start Date Coverage End Date [facility] [address] [place] [address] [id number] IVONNE KAMILLE Self - patient is the insured 5 Medical (General) History Medical History History ICD Code IDDM--has a pump Urinary incontinence Irritable bowel syndrome Herpes esophagitis in EGD 2010 with me-- I sent her to see an ID specialist Denies [place],CVA,Lung disease,renal disease Negative colonoscopy in 2010 with me Mast cell activation syndrome Surgical History Surgery Date(Month/Year) right oopherectomy 2018 2008 [facility] 2004 tonsilectomy 1993
--- OUTSIDE RECORDS SUMMARY | 2025-06-11 11:43 | XMS_ITS | Encounter Summary ---
Author Organization [facility] Address [address] [employer] [facility] [address] [place] [address] Phone Care Team Providers Care Window Covering Sales Consultant Name Role Phone Amaya Hatfield MD Unavailable Jj Baldwin DO Unavailable [phone] Elba Bailey MD Unavailable [phone] Isabel Baker MD Unavailable [phone] Sena Nagy MD Unavailable Alexi Nunes MD Primary Care Provide r Pcp, Unknown Primary Care Provider Unavailabl e Pcp, Unknown Primary Care Provider Unavailabl e Eric Guerrero MD Primary Care Provider Encounter Details Date Type Department Care Team (Latest Contact Info) Description 11/15/2020 Transcribe Orders Virtual Department [address] [place] [address] Alexi Nunes MD [address] [facility] [address] [place] [address] Other specified soft tissue disorders (Primary Dx) Social History Tobacco Use Types Packs/Day Years Used Date Smoking Tobacco: Never Smokeless Tobacco: Never Alcohol Use Standard Drinks/Week Comments Not Currently 0 (1 standard drink = 0.6 oz pur e alcohol) Comments Unknown Sex and Gender Information Value Date Recorded Sex Assigned at Female 09/17/2022 10:09 AM EST Legal Sex Female 9:23 PM EDT Gender Identity Female 09/17/2022 10:09 AM EST Sexual Orientation Straight 09/17/2022 10 :09 AM EST documented as of this encounter Plan of Treatment Upcoming Encounters Date Type Department Care Team (Late st Contact Info) Description 07/05/2025 11:40 AM EDT Office Visit [facility] Diabetes [address] [place] [address] Elba Bailey MD [address] [place] [address], [address] [place] [address] 10/11/2025 1:00 PM EST Nutrition [facility] [address] [place] [address] Sivan Montes De Oca LDN [address] [place] [address] 01/10/2026 11:30 AM EDT Office Visit [facility] Diabetes [address] [place] [address] Elba Bailey MD [address] [place] [address] documented as of this encounter Results * US LOWER EXTREMITY NON-VASCULAR LIMITED (RIGHT) (11/21/2020 3:21 PM EST) Anatomical Region Laterality Modality Hip Right, Thigh Right, Knee Right, Leg Right, Ankle Right, Foot Right Ultrasound 11/21/2020 3:30 PM EST Impressions 11/21/2020 3:37 PM EST Interval decrease in size of the intramuscular avascular structure, now measuring 3.0 x 0.5 x 1.8 cm, and demonstrating a more ill-defined borders and more hypoechoic/anechoic content. Findings favor involuting intramuscular hematoma. Narrative 11/21/2020 3:37 PM EST EXAM: US LOWER EXTREMITY NON-VASCULAR LIMITED (RIGHT) History: N/A no indication applies (use free text below); PAIN, OTHER SOFT TISSUE DISORDERS Study notes from technologist: Follow up scan after patient fell two weeks ago and heard a pop in her muscle on her calf. COMPARISON: Previous right lower extremity ultrasound on November 05, 2020 describes a 2.2 x 0.6 x 3.9 cm intramuscular heterogeneous hypoechoic avascular structure. FINDINGS: Ultrasound was performed at location of the prior sonographic finding in the right mid posterior medial aspect of the calf. Survey shows a 3.0 x 0.5 x 1.8 cm ill-defined hypoechoic intramuscular structure (previous measurements of 3.9 x 2.2 x 0.6 cm). The content is more homogeneously hypoechoic/anechoic. No abnormal vascularity demonstrated with color Doppler evaluation. Procedure Note Arias Sanabria MD - 11/21/2020 EXAM: US LOWER EXTREMITY NON-VASCULAR LIMITED (RIGHT) History: N/A no indication applies (use free text below); PAIN, OTHER SOFTTISSUE DISORDERS Study notes from technologist: Follow up scan after patient fell two weeksago and heard a pop in her muscle on her calf. COMPARISON: Previous right lower extremity ultrasound on November 05escribes a 2.2 x 0.6 x 3.9 cm intramuscular heterogeneous hypoechoicavascular structure. FINDINGS: Ultrasound was performed at location of the prior sonographic finding inthe right mid posterior medial aspect of the calf. Survey shows a 3.0 x0.5 x 1.8 cm ill- defined hypoechoic intramuscular structure (previousmeasurements of 3.9 x 2.2 x 0.6 cm). The content is more homogeneouslyhypoechoic/anechoic. No abnormal vascularity demonstrated with colorDoppler evaluation. IMPRESSION: Interval decrease in size of the intramuscular avascular structure, nowmeasuring 3.0 x 0.5 x 1.8 cm, and demonstrating a more ill-defined bordersand more hypoechoic/anechoic content. Findings favor involutingintramuscular hematoma. us Alexi Garcia MD [facility] EXTREMITY Nicky l Result documented in this encounter Visit Diagnoses Diagnosis Other specified soft tissue disorders- Primary Other specified soft tissue disorders documented in this encounter Care Teams Window Covering Sales Consultant Relationship Specialty Start Date End Date Alexi Nunes MD [address] [address] PCP - General Family Medicine 09/22/18 06/24/23 Pcp, Unknown PCP - General 06/25/23 09/24/23 Pcp, Unknown PCP - General 09/25/23 12/28/24 Eric Guerrero MD [address] [place] [address] PCP - General Family Medicine 12/29/24 Amaya Hatfield MD [address] [address] Historical LMR Provider 07/29/17 10/21/21 Jj Baldwin DO 22 [place] [address] Historical LMR Provider 07/29/17 10/21/21 Elba Bailey MD [address] [address] Historical LMR Provider 07/29/17 Isabel Baker MD [address] [place] [address] Historical LMR Provider 07/29/17 2 [place] [address] [email or web address] Historical LMR Provider 07/29/17 10/21/21 documented as of this encounter Additional Source Comments The information contained in this document represents components of the legal health record. It is not the complete legal health record.[facility]
--- OUTSIDE RECORDS SUMMARY | 2025-06-11 11:46 | XMS_ITS | Clinical Summary ---
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, not stated as uncontrolled DX:Type I (juvenile type) di abetes mellitus without mention of complication, not stated as uncontrolled 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, uncontrolled 02/01/2006 DX:Type I (juvenile type) d iabetes mellitus without mention of complication, uncontrolled Follicular cyst of ovary 02/01/2006 DX:Foll icular cyst of ovary Carpal tunnel syndrome 02/01/2006 DX:Carpal tunnel syndrome Family History Medical History Relation Name Comments Glaucoma Maternal Grandmother Thyroid disease Maternal Grandmother Heart attack Paternal Grandfather Arthritis Paternal Grandmother Asthma Paternal Grandmother Heart failure Paternal Grandmother Relation Name Status Comments Brother Alive 2 brothers twin s, age 40, good health back problems Maternal Grandfather Maternal Grandmother Alive 92 year s old Paternal Grandfather Paternal Grandmother Sister Alive 1 sister age 31 , healthy Social History Tobacco Use Types Packs/Day Years Used Date Smoking Tobacco: Never Alcohol Use Standard Drinks/Week Comments Yes 0 (1 standard drink = 0.6 oz pur e alcohol) Comments Unknown Sex and Gender Information Value Date Recorded Sex Assigned at Not on file Legal Sex Female 8:44 PM EST Gender Identity Not on file Sexual Orientation Not on file Obstetrics History Plan of Treatment Upcoming Encounters Date Type Department Care Team (Late st Contact Info) Description 09/07/2025 1:00 PM EST Appointment [facility] Xray [address] [place] [address] Health Maintenance Due Date Last Done Comments Breast Cancer Screening 1979 Diabetes: Annual GFR (Glomer ular Filtration Rate) 1979 Diabetes: Annual Foot Exam 1989 Diabetes: Annual Retina Eye Exam 1989 DTaP,Tdap,and Td Vaccines (1 - Tdap) 1998 Hepatitis B Vaccines (1 of 3 - 19+ 3-dose series) 1998 Cervical Cancer Screening: P ap Smear 2000 Cholesterol Screening (Lipid Panel) 11/08/2023 Colorectal Cancer Screening: Colonoscopy 11/08/2023 HIV Screening 11/08/2023 Hepatitis C Screening 11/08/2023 Social Influencers of Health Screening 11/08/2023 Diabetes: Annual Urine Albumin-Creatinine Ratio (uACR) 11/29/2023 Diabetes: Blood Sugar Contro l Test (HGBA1C) 11/29/2023 COVID-19 Vaccine (2023-2 5 season) 2024 Depression Screening 10/14/2024 Influenza Vaccine (#1) 2025 HIB Vaccines Aged Out No longer eligi ble based on patient's age to complete this topic HPV Vaccines Aged Out No longer eligi ble based on patient's age to complete this topic Hepatitis A Vaccines Aged Out No long er eligible based on patient's age to complete this topic IPV Vaccines Aged Out No longer eligi ble based on patient's age to complete this topic MMR Vaccines Aged Out No longer eligi ble based on patient's age to complete this topic Meningococcal ACWY Vaccine Aged Out N o longer eligible based on patient's age to complete this topic Meningococcal B Vaccine Aged Out No l onger eligible based on patient's age to complete this topic Pneumococcal Vaccine: Pediat rics (0 to 5 Years) and At-Risk Patients (6 to 49 Years) Aged Out No longer eligible b ased on patient's age to complete this topic RSV Immunization Patients Un juancho 20 months Aged Out No longer eligible b ased on patient's age to complete this topic Varicella Vaccines Aged Out No longer eligible based on patient's age to complete this topic Insurance [facility] Care Teams Legal Librarian Relationship Specialty Start Date End Date Solomon Suazo MD [address] [place] [address] PCP - General 12/13/10
--- OUTSIDE RECORDS SUMMARY | 2025-06-11 11:46 | XMS_ITS | Encounter Summary ---
Author Organization [facility] Address [address] [facility] [address] [place] [address] Phone Care Team Providers Care Stadium Attendant Name Role Phone Amaya Hatfield MD Unavailable Jj Baldwin DO Unavailable [phone] Elba Bailey MD Unavailable [phone] Isabel Baker MD Unavailable [phone] Sena Nagy MD Unavailable Jj Baldwin DO Primary Care Provider [phone] Jj Baldwin DO Primary Care Provider [phone] Alexi Nunes MD Primary Care Provide r Pcp, Unknown Primary Care Provider Unavailabl e Pcp, Unknown Primary Care Provider Unavailabl e Eric Guerrero MD Primary Care Provider Reason for Referral * Physical Therapy (Routine) - Closed Specialty Diagnoses / Procedures Referred By Kayla hill Referred To Contact Physical Therapy Diagnoses Encounter for rehabilitation Jj Baldwin DO Phone: tel: fax: [email or web address] [address] [address] Phone: tel: Referral ID Status Reason Start Date Expiration Date Visits Re quested Visits Authorized [id number] Closed 01/23/2018 01/23/2019 12 12 Encounter Details Date Type Department Care Team (Latest Contact Info) Description 01/21/2018 Transcribe Orders [facility] [address] [place] [address] Jj Baldwin DO [address] [place] [address] [email or web address] Encounter for rehabilitation (Primary Dx) Social History [...] Description 07/05/2025 11:40 AM EDT Office Visit [facility] Diabetes [address] [place] [address] Elba Bailey MD [address] [place] [address] 10/11/2025 1:00 PM EST Nutrition [facility] Diabetes [address] [place] [address] Sivan Montes De Oca LDN [address] [place] [address] 01/10/2026 11:30 AM EDT Office Visit [facility] Diabetes [address] [place] [address] Elba Bailey MD [address] [place] [address] Scheduled Referrals Name Type Priority Associated Diagnoses Orde r Schedule Ambulatory referral to [facility] Physical Therapy Outpatient Referral Routine Encounter for rehabilitation Ordered: 01/21/2018 documented as of this encounter Visit Diagnoses Diagnosis Encounter for rehabilitation- Primary documented in this encounter Care Teams Stadium Attendant Relationship Specialty Start Date End Date Jj Baldwin DO 22 [place] [address] PCP - General 10/17/17 02/03/18 Jj Baldwin DO 22 [place] [address] PCP - General Family Medicine 02/04/18 09/21/18 Alexi Nunes MD [address] [place] [address] PCP - General Family Medicine 09/22/18 06/24/23 Pcp, Unknown PCP - General 06/25/23 09/24/23 Pcp, Unknown PCP - General 09/25/23 12/28/24 Eric Guerrero MD [address] [place] [address] PCP - General Family Medicine 12/29/24 Amaya Hatfield MD 15 [facility], 2nd [place] [address] Historical LMR Provider 07/29/17 10/21/21 Jj Baldwin DO 22 [place] [address] Historical LMR Provider 07/29/17 10/21/21 Elba Bailey MD 22 [facility], [address] [place] [address] [email or web address] Historical LMR Provider 07/29/17 Isabel Baker MD [address] [place] [address] Historical LMR Provider 07/29/17 2 [place] [address] [email or web address] Historical LMR Provider 07/29/17 10/21/21 documented as of this encounter Additional Source Comments The information contained in this document represents components of the legal health record. It is not the complete legal health record.[facility]
== END ==
LOC: HO.CARD 11:02
PROVIDERS: PCP Family Medicine; Visit Provider Nurse Practitioner Family
DX: R06.02 Shortness of breath (principal); R00.2 Palpitations; R55 Syncope and collapse
CPT/HCPCS: 93017; 93242

== ENCOUNTER → 2025-06-11 11:03 | Outpatient (BNV) | payer BC, SELFPAY | PROVIDERS: PCP Family Medicine | DX: R06.02 Shortness of breath (principal); R42 Dizziness and giddiness | CPT/HCPCS: 93016; 93018 ==

== ENCOUNTER → 2025-06-25 12:48 | Outpatient (REF) | payer BC, SELFPAY ==
--- NOTE | 2025-06-25 12:51 | CA_ITS ---
Transthoracic Echocardiogram Patient (Last, First, Middle): Kamille Skinner R Gender: F Date of : 1980 Age: 44 Procedure Date: 06/25/2025 Procedure Type: Transthoracic Echocardiogram Location: OP Height: 162.56 cm Weight: 74.84 kg BSA: 1.80 m2 Heart Rate: bpm BP: 130 / 82 mmHg Assessment Counselor: TO Referring MD: Callie Durham CONSTRUCTION OR LEAK GANG LABORER-C Quality Control Scientist: Edwin Alonso MD Symptoms: R06.02 - Shortness of breath Study Quality: Fair/Contrast ECG Rhythm: Sinus Conclusions: - Essentially normal study Findings Procedure Information Contrast agent, definity, is being given per protocol without apparent complications. Left Ventricle Normal left ventricular size, thickness, and systolic function. The visually estimated ejection fraction is between 55-60%. Spectral Doppler is indicative of a normal filling pattern. Right Ventricle Normal right ventricular cavity size and systolic function. Atria The left atrium is normal in size. There is no evidence of interatrial shunt. The right atrium is normal in size. Aortic Valve Normal aortic valve structure and function. There is no aortic valve stenosis. There is no aortic valve regurgitation. Mitral Valve Normal mitral valve structure and function. There is no mitral valve regurgitation. There is no mitral valve stenosis. Pulmonic Valve The pulmonic valve is likely normal. There is trace pulmonic valve regurgitation. Tricuspid Valve Normal tricuspid valve structure. Tricuspid regurgitation envelope is inadequate for calculation of right ventricular systolic pressure. Normal right atrial pressure. Great Vessels All visible segments of the aorta are normal in size. The pulmonary artery was not well visualized. Venous The inferior vena cava is normal in size and collapses greater than 50% with inspiration. Pericardium/Pleural There is no evidence of pericardial effusion. Prior Study Comparison No prior study available for comparison. Measurements 2D Linear Measurements IVSd: 0.77 0.6-0.9/0.6-1.0 cm LVIDd: 4.56 3.9-5.3/4.2-5.9 cm LVIDd Index: 2.53 2.4-3.2/2.2-3.1 cm/m2 LVIDs: 3.39 2.0-3.6 cm LVPWd: 0.88 0.7-1.1 cm LA Diam: 3.30 2.7-3.8/3.0-4.0 cm LAIDs Index: 1.83 1.5-2.3 cm/m2 LV Mass: 150.69 67-162/88-224 g LV Mass Index: 83.72 43-95/49-115 g/m2 LVOT Diam: 2.00 3.0+(-)1.3 cm 2D Systolic Function EF 4C: 57.60 >55% EF 2C: 57.60 >55% EF BiP: 58.90 >55% Mitral Valve MV Pk E: 0.53 MV PK A: 0.64 MV Decel Time: 166.00 E/A: 0.80 E'Lateral: 8.05 E'Medial: 5.11 E/E' Med: 10.30 E/E' Lat: 6.50 PHT: 49.00 MVA PHT: 4.49 Decel Kern: 3.17 Aortic Valve AoV Pk Lucho: 1.23 AoV Mn Lucho: 0.85 AoV VTI: 0.26 AoV Pk Grad: 6.00 Aov Mn Grad: 3.00 ESTEFANI Cont.VTI: 2.47 LVOT LVOT Pk Lucho: 0.93 LVOT Mn Lucho: 0.67 LVOT VTI: 0.21 LVOT Pk Grad: 3.00 LVOT Mn Grad: 2.00 LVOT Diam: 2.00 LVOT Area: 3.14 Diastolic Function MV Pk E: 0.53 MV Pk A: 0.64 E/A: 0.80 E'Medial: 5.11 E/E' Med: 10.30 E' Laterial: 8.05 E/E' Lat: 6.50 Right Ventricle TAPSE (mm): 21.20 TVS' Lucho: 10.80 Tricuspid Valve RA Press: 3.00 Great Vessels Aorta Sinus of Valsalva: 3.14 2.0-3.[address] Ridge: 2.38 1.7-3.4 cm Ao Asc: 3.00 2.1-3.4 cm Ao Arch: 2.40 Updated in Other Vendor System with Status of Final Edwin Alonso MD electronically signed on 06/25/2025 3:41:00 PM with status of Final
--- OUTSIDE RECORDS SUMMARY | 2025-06-25 15:08 | XMS_ITS | Clinical Summary ---
Author Organization [facility] it Address [address] [place] [address] Care Team Providers Care Flash Welder Name Role Phone Solomon Suazo MD Primary [...] Info) Description 09/07/2025 1:00 PM EST Appointment [facility] Xray [address] [place] [address] Health Maintenance Due Date Last [...] Blood Sugar Contro l Test (HGBA1C) 11/29/2023 Depression Screening 10/14/2024 COVID-19 Vaccine ( - 2023-2 5 season) 2025 Influenza Vaccine (#1) 2025 HIB Vaccines Aged [...] patient's age to complete this topic Insurance [facility] Care Teams Flash Welder Relationship Specialty Start Date End Date Solomon Suazo MD [address] [place] [address] PCP - General 12/13/10
--- OUTSIDE RECORDS SUMMARY | 2025-06-25 15:09 | XMS_ITS | Patient Health Record ---
Author Organization [facility] Address [address] [place] [address] Care Team Providers Care X Ray Technologist Name Role Phone Eric Guerrero Primary Care Provider UnavailJj Torre Unavailable [phone] Allergies Allergen (clinical drug ingredient) Drug/Non Drug [...] Status Risk Notes Problem Colon cancer screening (419605217) Colon cancer screening (Z12.11) Active confirmed Problem Irritable bowel syndrome with diarrhea (957192224) Irritable bowel syndrome with diarrhea (K58.0) Active confirmed Vital Signs Temperature 98.9 degrees Fahrenheit 05/20/2025 Blood pressure diastolic 01 mm Hg 05/20/2025 Height 64.5 in 05/20/2025 Blood pressure systolic 001 mm Hg 05/20/2025 Weight 166.8 lbs 05/20/2025 BMI 28.19 kg/m2 05/20/2025 Procedures Procedure Date Ordered Date Performed Result Body Sit e COLONOSCOPY 05/20/2025 N/A Encounters Encounter Location Date Provider Diagnosis [facility] [address] [place] [phone] 05/20/2025 Jj Og Colon cancer screening Z12.11 and Irritable bowel syndrome with diarrhea K58.0 [facility] [address] [place] [phone] 05/20/2025 Jj Og Assessments Encounter Date Diagnosis [...] see Dr. Diana from Infectious Disease at [facility] Overall, Kamille appears well. [...] Provider Name:Jj Og , 08/18/2025 09:30:00 AM, [address] [place] [address] , [place], [place], [phone], Insurance Providers Payer Name Payer Address Payer Phone Subscriber Number Group Number Insured Name Patient Relationship to Insured Coverage Start Date Coverage End Date [facility] [address] [place] [address] [id number] IVONNE KAMILLE Self - patient is the insured 5 Medical (General) History Medical History History ICD Code IDDM--has a pump Urinary incontinence Irritable bowel syndrome Herpes esophagitis in EGD 2010 with me-- I sent her to see an ID specialist Denies [place],CVA,Lung disease,renal disease Negative colonoscopy in 2010 with me Mast cell activation syndrome Surgical History Surgery Date(Month/Year) right oopherectomy 2018 2008 [facility] 2004 tonsilectomy 1993
== END ==
LOC: HO.CARD 12:48
PROVIDERS: PCP Family Medicine; Visit Provider Nurse Practitioner Family
DX: R06.02 Shortness of breath (principal); R00.2 Palpitations
CPT/HCPCS: 93306; Q9957

== ENCOUNTER → 2025-06-25 12:51 | Outpatient (BNV) | payer BC, SELFPAY | PROVIDERS: PCP Family Medicine; Visit Provider Internal Medicine Cardiovascular Disease | DX: R06.02 Shortness of breath (principal) | CPT/HCPCS: 93306 ==

== ENCOUNTER → 2025-07-09 10:53 | Outpatient (REF) | payer BC, SELFPAY ==
--- OUTSIDE RECORDS SUMMARY | 2025-07-05 11:40 | XMS_ITS | Encounter Summary ---
Author Organization [facility] Address [address] [place] [address] Phone Care Team Providers Care Mail Opener Name Role Phone Elba Bailey MD Unavailable [phone] Eric Guerrero MD Primary Care Provider Reason for Visit * Reason Comments Type 1 Diabetes - Regular Visit Insulin pump/CGM * Consultation (Routine) - Authorized Specialty Diagnoses / Procedures Referred By Kayla t Referred To Contact Internal Medicine / Diabetes and Nutrition Diagnoses follow up Procedures FOLLOW UP Eric Guerrero MD [address] [place] [address] Phone: tel: fax: [facility] [address] [place] [address] Phone: tel: fax: Referral ID Status Reason Start Date Expiration Date V isits Requested Visits Authorized [id number] Authorized 06/25/2025 06/25/2026 99 99 Encounter Details Date Type Department Care Team (Latest Contact Info) Description 07/05/2025 11:40 AM EDT Office Visit [facility] [address] [place] [address] [place] [address] Elba Bailey MD [address] [facility], 1st [place] [address] Type 1 diabetes mellitus with diabetic mononeuropathy (Primary Dx); Insulin pump in place Social History Tobacco Use Types Packs/Day Years Used Date Smoking Tobacco: Never Smokeless Tobacco: Never Alcohol Use Standard Drinks/Week Comments Not Currently 0 (1 standard drink = 0.6 oz pur e alcohol) Education Answer Date Recorded Are you interested in more education? Not on kacie e 02/08/2023 Are you concerned about learning? Not on file 02/08/2023 No 02/08/2023 No 02/08/2023 Digital Access Answer Date Recorded No 03/11/2023 No 03/11/2023 Reliable internet access at home? Not on file 03/11/2023 Device with a working camera? Not on file Comments Unknown Sex and Gender Information Value Date Recorded Sex Assigned at Female 09/17/2022 10:09 AM EST Legal Sex Female 9:23 PM EDT Gender Identity Female 09/17/2022 10:09 AM EST Sexual Orientation Straight 09/17/2022 10 :09 AM EST documented as of this encounter Last Filed Vital Signs Vital Sign Reading Time Taken Comments Blood Pressure 126/84 07/05/2025 11:30 AM EDT Pulse 73 07/05/2025 11:30 AM EDT Temperature - - Respiratory Rate - - Oxygen Saturation - - Inhaled Oxygen Concentration - - Weight 70.3 kg (155 lb) 07/05/2025 11:30 AM EDT Height 163.8 cm (5' 4.49 ) 07/05/2025 11:30 AM E DT Body Mass Index 26.2 07/05/2025 11:30 AM EDT documented in this encounter Patient Instructions * Patient Instructions* Elba Bailey MD - 07/05/2025 11:40 AM EDT MEDICATIONS: Continue your current dosing with iLet BLOOD TESTS: Today's A1c was 7.7% LIFESTYLE Diet: continue your efforts at healthy balanced eating Exercise: try to stay active as consistently as you can, 30 minutes of exercise on most days of theweek (averaging about 150 minutes of exercise per week) can be very helpful to overall wellbeing, blood sugar control and weight management FOLLOW UP: Please bring glucometer for download and/or blood sugar diary at next visit. Follow up in 3 months with Sivan and in 6 months with . Please call with any questions or concerns. documented in this encounter Progress Notes * Elba Bailey MD - 07/05/2025 11:40 AM EDT Images from the original note were not included. Recent Labs: Lab Results Component Value Date CHOL 214 06/25/2023 HDL 71 06/25/2023 LDL 130 (H) 06/25/2023 TRIG 64 06/25/2023 CHOLHDL 3.0 (L) 06/25/2023 No results found for: HGB , HCT , RDW TSH Date Value Ref Range Status 06/25/2023 0.92 0.27 - 4.20 uIU/mL Final Lab Results Component Value Date YSED2XUTR 7.7 (*) 07/05/2025 PVQX6UPVH 7.1 (*) 04/07/2025 JHHQ8BWLE 8.0 (*) 01/04/2025 GHBA1C 7.8 (H) 09/25/2023 GHBA1C 9.5 11/21/2020 GHBA1C 9.8 10/29/2019 Lab Results Component Value Date NA 142 06/25/2023 K 4.2 06/25/2023 CL 103 06/25/2023 CO2 29 06/25/2023 BUN 14 06/25/2023 CRE 0.80 06/25/2023 GLU 97 06/25/2023 ALB 4.7 06/25/2023 TP 7.1 06/25/2023 CA 9.5 06/25/2023 ALKP 71 06/25/2023 TBILI 0.6 06/25/2023 SGOT 20 06/25/2023 SGPT 13 06/25/2023 GLOB 2.4 06/25/2023 GFR 94 06/25/2023 ANION 14 06/25/2023 No results found for: EXAMINZM74 , B12 Lab Results Component Value Date GRMALB <1.2 06/25/2023 UCRE 62 06/25/2023 MALBCRE NOT CALCULATED 06/25/2023 Last DM Eye Exam: Date:Needs to make an appointment Last DM Foot Exam: Date: With in the year There is no immunization history on file for this patient. Subjective: Kamille June is a 44 y.o. female who presents for a follow up evaluation of Type 1 diabetes mellitus HPI/current issues: Since our last visit Kamille was diagnosed with MCAS, working with Dr. 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 about MCAS and POTS Hopes that dietary modifications will be helpful Change in weather has been helpful since the hot/humid weather waas difficult Has been having better impact from iLet for insulin resistance which is believed to be a part of MCAS Overall very happy with the system Also has frequent contact with clinical sales [facility] Blood work has indicated that Kamille is postmenopausal HRT has been a challenging consideration due to MCAS Current diet: in general, a healthy diet has started to have 1-2 high protein, high fiber shakes in place of some meals daily Current exercise: work is usually active but has been out of work Prior visit with educator: met with Sivan Montes De Oca in March Known diabetic complications: peripheral neuropathy Current diabetic medications include: Current Outpatient Medications: acyclovir (ZOVIRAX) 200 MG capsule, Take by mouth daily., Disp: , Rfl: , Last Dispense: Unknown (patient-reported) acyclovir (ZOVIRAX) 200 MG capsule, Take 1 capsule by mouth., Disp: , Rfl: , Last Dispense: Unknown(patient-reported) ASHWAGANDHA ROOT EXTRACT ORAL, Take by mouth. With l-thinne, Disp: , Rfl: , Last Dispense: Unknown (patient-reported) cetirizine (ZYRTEC) 10 MG tablet, Take 10 mg by mouth 2 (two) times a day., Disp: , Rfl: , Last Dispense: Unknown (patient-reported) cholestyramine (QUESTRAN) 4 gram powder, MIX 1/4 TO 1 SCOOP IN 8 OUNCES OF WATER OR ORANGE JUICE ONCE OR TWICE A DAY FOR DIARRHEA 30 DAYS, Disp: , Rfl: , Last Dispense: Unknown (patient-reported) DEXCOM G7 SENSOR Tiffany, Apply sensor as directed every 10 days, Disp: 3 each, Rfl: 11, Last Dispense: Unknown (outside pharmacy) fluconazole (DIFLUCAN) 150 MG tablet, TAKE 1 TABLET BY MOUTH EVERY WEEK FOR 180 DAYS., Disp: , Rfl:, Last Dispense: Unknown (patient-reported) glucagon (GVOKE) 1 mg/0.2 mL subcutaneous syringe, Inject 0.2 mL (1 mg total) under the skin once as needed for low blood sugar (provide value)., Disp: 0.2 mL, Rfl: 2, Last Dispense: Unknown (outsidepharmacy) HUMALOG U-100 INSULIN 100 unit/mL injection vial, INJECT UP TO 100 UNITS A DAY DIRECTED VIA INSULIN PUMP. E10.40, Disp: 30 mL, Rfl: 12, Last Dispense: Unknown (outside pharmacy) levonorgestreL (MIRENA) 20 mcg/24 hours (6 yrs) 52 mg intrauterine device, 1 Device by Intrauterineroute Once every 5 years., Disp: , Rfl: , Last Dispense: Unknown (patient-reported) Medication-Free Text, 1 capsule. Lemon balm, Disp: , Rfl: , Last Dispense: Unknown (patient-reported) PASSION FLOWER ORAL, Take 1 capsule by mouth., Disp: , Rfl: , Last Dispense: Unknown (patient-reported) quercetin 500 mg Cap, , Disp: , Rfl: , Last Dispense: Unknown (patient-reported) vit V-zcbkvkaab-qctpetk,citrus (QUERCETIN COMPLEX) 625 mg Tab, Take 1 tablet by mouth 2 (two) timesa day., Disp: , Rfl: , Last Dispense: Unknown (no pharmacy) Weight trend: Wt Readings from Last 3 Encounters: 07/05/25 70.3 kg (155 lb) 01/04/25 74.9 kg (165 lb 3.2 oz) 01/16/24 72.1 kg (159 lb) Review of Systems Pertinent items are noted in HPI. Objective: BP 126/84 (BP Location: Left arm, Patient Position: Sitting) Pulse 73 Ht 163.8 cm (5' 4.49 ) Wt 70.3 kg (155 lb) BMI 26.20 kg/m?? on brief examination Kamille is well appearing and in no distress, she is alert and oriented and otherwise cognitively intact, her respirations are comfortable and unlabored, she is without tremor and gross motor function is intact and symmetric, gait is normal Assessment: Type 1 diabetes mellitus, under very good control. A1c is 7.7% today compared to 7.1% in March and 8% in December, CGM data indicates TIR just under target (68%), much lower TAR2 frequency compared to past, GMI 7.1% Problem List Items Addressed This Visit Endocrine Type 1 diabetes mellitus with diabetic mononeuropathy - Primary Doing well on fully automated insulin pump/CGM integrated AID system, we discussed some considerations for bolusing and Kamille remains in close contact with clinical sales team leader from [facility] with questions Kamille is in midst of evaluation for possible POTS and has been diagnosed with MCAS, we discussed how these may impact diabetes management and how this has affected her insulin requirement Kamille continues to be more consistent with premeal dosing Kamille is encouraged to do her best with healthy lifestyle habits as consistently as she can, she isout of work currently due to medical issues and activity has been impacted in general Most recent routine labs are from fall 2022 but these are up to date with PCP 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 Kamille will return in 6 months to follow up with me Relevant Orders POCT Hemoglobin A1c (Completed) Insulin pump in place Kamille is doing well on the [facility] insulin pump system, her TIR is improved and TAR2 frequency is muchlower, insulin requirement is similar to previous but should decrease as her underlying insulin resistance issues Advised to continue to keep an eye on patterns, she is in touch with Sandra Orlando from clinical care team at [facility] regarding dosing considerations Kamille is scheduled to return in 6 months, she is advised to reach out with any questions or concerns Relevant Orders POCT Hemoglobin A1c (Completed) 42 minutes were spent with the patient, this included face to face time as well as non face to facetime in reviewing medical records, pertinent laboratory results and consultation reports. Time spent with patient did not include interpretation of CGM reports. documented in this encounter Miscellaneous Notes * Assessment & Plan Note - Elba Bailey MD - 07/05/2025 12:27 PM EDT Associated Problem(s): Insulin pump in place Kamille is doing well on the [facility] insulin pump system, her TIR is improved and TAR2 frequency is muchlower, insulin requirement is similar to previous but should decrease as her underlying insulin resistance issues Advised to continue to keep an eye on patterns, she is in touch with Sandra Orlando from clinical care team at [facility] regarding dosing considerations Kamille is scheduled to return in 6 months, she is advised to reach out with any questions or concerns * Assessment & Plan Note - Elba Bailey MD - 07/05/2025 12:24 PM EDT Associated Problem(s): Type 1 diabetes mellitus with diabetic mononeuropathy Doing well on fully automated insulin pump/CGM integrated AID system, we discussed some considerations for bolusing and Kamille remains in close contact with clinical sales team leader from [facility] with questions Kamille is in midst of evaluation for possible POTS and has been diagnosed with MCAS, we discussed how these may impact diabetes management and how this has affected her insulin requirement Kamille continues to be more consistent with premeal dosing Kamille is encouraged to do her best with healthy lifestyle habits as consistently as she can, she isout of work currently due to medical issues and activity has been impacted in general Most recent routine labs are from fall 2022 but these are up to date with PCP 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 Kamille will return in 6 months to follow up with me documented in this encounter Plan of Treatment Upcoming Encounters Date Type Department Care Team (Late st Contact Info) Description 01/10/2026 11:30 AM EDT Office Visit [facility] [address] [place] [address] [place] [address] Elba Bailey MD [address] [facility], 1st [place] [address] documented as of this encounter Procedures Procedure Name Priority Date/Time Associated Diagnosis Comments POCT HEMOGLOBIN A1C Routine 07/05/2025 1 2:09 PM EDT Type 1 diabetes mellitus with diabetic mononeuropathy Insulin pump in place documented in this encounter Results * (ABNORMAL) POCT Hemoglobin A1c (07/05/2025 12:09 PM EDT) Hemoglobin A1c 7.7(A) 4.2 - 5.6 % [employer] [facility] Other 07/05/2025 12:0 9 PM EDT us Elba Bailey MD POINT OF CARE TEST ORDERABLES F inal Result [place] [facility] [address] [place] [address], [facility] documented in this encounter Visit Diagnoses Diagnosis Type 1 diabetes mellitus with diabetic mononeuropathy- Primary Insulin pump in place Insulin pump status documented in this encounter Care Teams Mail Opener Relationship Specialty Start Date End Date Eric Guerrero MD [address] [place] [id number] PCP - General Family Medicine 12/29/24 Elba Bailey MD [address] [facility], [address] [place] [address] [email or web address] Historical LMR Provider 07/29/17 documented as of this encounter Additional Source Comments The information contained in this document represents components of the legal health record. It is not the complete legal health record.[facility]
--- NOTE | 2025-07-09 10:56 | HM_ITS ---
* Total procedure length 30 days. Wear time 26 days. * Underlying rhythm is sinus with an average ventricular rate of 87/Min. * Rare ventricular ectopy. * No significant pauses or high-grade AV blocks. * No patient markers or diary events. * Dizziness, shortness of breath, chest pain, racing, palpitations, tiredness, weak pulse, nausea, vomiting, sweating in patient diary correlates with sinus rhythm, sinus tachycardia. Palpitations/skipped beats correlates with ventricular couplet. MTDD
--- OUTSIDE RECORDS SUMMARY | 2025-07-09 12:37 | XMS_ITS | Patient Health Record ---
Author Organization [facility] Address [address] [place] [address] Care Team Providers Care Deli Department Manager Name Role Phone Eric Guerrero Primary Care Provider UnavailJj Torre Unavailable [phone] Allergies Allergen (clinical drug ingredient) Drug/Non Drug [...] Status Risk Notes Problem Colon cancer screening (430650999) Colon cancer screening (Z12.11) Active confirmed Problem Irritable bowel syndrome with diarrhea (460534342) Irritable bowel syndrome with diarrhea (K58.0) Active confirmed Vital Signs Temperature 98.9 degrees Fahrenheit 05/20/2025 Blood pressure diastolic 01 mm Hg 05/20/2025 Height 64.5 in 05/20/2025 Blood pressure systolic 001 mm Hg 05/20/2025 Weight 166.8 lbs 05/20/2025 BMI 28.19 kg/m2 05/20/2025 Procedures Procedure Date Ordered Date Performed Result Body Sit e COLONOSCOPY 05/20/2025 N/A Encounters Encounter Location Date Provider Diagnosis [facility] [address] [place] [phone] 05/20/2025 Jj Og Colon cancer screening Z12.11 and Irritable bowel syndrome with diarrhea K58.0 [facility] [address] [place] [phone] 05/20/2025 Jj Og Assessments Encounter Date Diagnosis [...] [place] Dr. Diana [place] [place] [facility] Overall, Kamille appears well. Given her age [...] Provider Name:Jj Og , 08/18/2025 09:30:00 AM, [address] [place] [address] , [place], [id number], Insurance Providers Payer Name Payer Address Payer Phone Subscriber Number Group Number Insured Name Patient Relationship to Insured Coverage Start Date Coverage End Date [facility] [address] [place] [address] [id number] IVONNE KAMILLE Self - patient is the insured 5 Medical (General) History Medical History History ICD Code IDDM--has a pump Urinary incontinence Irritable bowel syndrome Herpes esophagitis in EGD 2010 with me-- I sent her to see an ID specialist Denies [place],CVA,Lung disease,renal disease Negative colonoscopy in 2010 with me Mast cell activation syndrome Surgical History Surgery Date(Month/Year) right oopherectomy 2018 2008 [facility] 2004 tonsilectomy 1993
--- OUTSIDE RECORDS SUMMARY | 2025-07-09 12:37 | XMS_ITS | Encounter Summary ---
Author Organization [facility] Address [address] [facility] [address] [place] [address] Phone Care Team Providers Care Recording Artist Name Role Phone Amaya Hatfield MD Unavailable Jj Baldwin DO Unavailable [phone] Elba Bailey MD Unavailable [phone] Isabel Baker MD Unavailable [phone] Sena Nagy MD Unavailable Alexi Nunes MD Primary Care Provide r Pcp, Unknown Primary Care Provider Unavailabl e Pcp, Unknown Primary Care Provider Unavailabl e Eric Guerrero MD Primary Care Provider Encounter Details Date Type Department Care Team (Latest Contact Info) Description 11/15/2020 Transcribe Orders Virtual Department [address] [place] [address] Alexi Nunes MD [address] [facility] [address] [place] [address] Other specified soft tissue disorders (Primary Dx) [...] Description 01/10/2026 11:30 AM EDT Office Visit [facility] [address] [place] [address] Elba Bailey MD [address] [facility], 1st [place] [address] documented as of this encounter Results * [...] favor involutingintramuscular hematoma. us Alexi Garcia MD IMG US EXTREMITY Nicky l Result documented in this encounter Visit Diagnoses Diagnosis Other specified soft tissue disorders- Primary Other specified soft tissue disorders documented in this encounter Care Teams Recording Artist Relationship Specialty Start Date End Date Alexi Nunes MD [address] [facility] [address] [place] [address] PCP - General Family Medicine 09/22/18 06/24/23 Pcp, Unknown PCP - General 06/25/23 09/24/23 Pcp, Unknown PCP - General 09/25/23 12/28/24 Eric Guerrero MD [address] [place] [address] PCP - General Family Medicine 12/29/24 Amaya Hatfield MD [address] [address] [email or web address] Historical LMR Provider 07/29/17 10/21/21 Jj Baldwin DO 22 [place] [address] [email or web address] Historical LMR Provider 07/29/17 10/21/21 Elba Bailey MD [address] [address] [email or web address] Historical LMR Provider 07/29/17 Isabel Baker MD [address] [place] [address] Historical LMR Provider 07/29/17 2 [place] [address] [email or web address] Historical LMR Provider 07/29/17 10/21/21 documented as of this encounter Additional Source Comments The information contained in this document represents components of the legal health record. It is not the complete legal health record.[facility]
--- OUTSIDE RECORDS SUMMARY | 2025-07-09 12:37 | XMS_ITS | Encounter Summary ---
Author Organization [facility] Address [address] [facility] [address] [place] [address] Phone Care Team Providers Care Hr Recruiter Name Role Phone Amaya Hatfield MD Unavailable Jj Baldwin DO Unavailable [phone] Elba Bailey MD Unavailable [phone] Isabel Baker MD Unavailable [phone] Sena Nagy MD Unavailable Alexi Nunes [...] rehabilitation System, Provider Not In, [facility] [address] [address] Phone: tel: Referral ID Status Reason Start Date Expiration Date Visits Re quested Visits Authorized [id number] Closed 10/21/2018 10/21/2019 10 10 Encounter Details Date Type Department Care Team (Latest Contact Info) Description 10/08/2018 Transcribe Orders [facility] [address] [address] Alexi Nunes MD [address] [address] Encounter for rehabilitation (Primary Dx) Social History [...] Upcoming Encounters Date Type Department Care Team ([facility] st Contact Info) Description 01/10/2026 11:30 AM EDT Office Visit [facility] [address] [place] [address] Elba Bailey MD [address] [address] [email or web address] Scheduled Referrals Name Type Priority Associated Diagnoses Orde r Schedule Ambulatory referral to [facility] Physical Therapy Outpatient Referral Routine Encounter for rehabilitation Ordered: 10/08/2018 documented as of this encounter Visit Diagnoses Diagnosis Encounter for rehabilitation- Primary documented in this encounter Care Teams Hr Recruiter Relationship Specialty Start Date End Date Alexi Nunes MD [address] [address] PCP - General Family Medicine 09/22/18 06/24/23 Pcp, Unknown PCP - General 06/25/23 09/24/23 Pcp, Unknown PCP - General 09/25/23 12/28/24 Eric Guerrero MD [address] [place] [address] PCP - General Family Medicine 12/29/24 Amaya Hatfield MD [address] [address] [email or web address] Historical LMR Provider 07/29/17 10/21/21 Jj Baldwin DO [address] [place] [address] [email or web address] Historical LMR Provider 07/29/17 10/21/21 Elba Bailey MD [address] [place] [address], [address] [place] [address] [email or web address] Historical LMR Provider 07/29/17 Isabel Baker MD [address] [place] [address] Historical LMR Provider 07/29/17 2 [place] [address] [email or web address] Historical LMR Provider 07/29/17 10/21/21 documented as of this encounter Additional Source Comments The information contained in this document represents components of the legal health record. It is not the complete legal health record.[facility]
--- OUTSIDE RECORDS SUMMARY | 2025-07-09 12:38 | XMS_ITS | Clinical Summary ---
Author Organization [facility] it Address [address] [place] [address] Care Team Providers Care Cementer Hand Name Role Phone Solomon Suazo MD Primary [...] as uncontrolled Type I (juvenile type) diabe rbyce mellitus without mention of complication, uncontrolled 02/01/2006 [...] Info) Description 09/07/2025 1:[address] [facility] [address] [place] [address] Health Maintenance Due Date Last [...] (HGBA1C) 11/29/2023 Depression Screening 10/14/2024 COVID-19 Vaccine (1 - 2023-2 5 season) 2025 Influenza Vaccine (#1) 2025 RSV Immunization Adult Patie nts (1 - 1-dose 75+ series) 2054 HIB Vaccines Aged Out No longer eligi [...] patient's age to complete this topic Insurance [facility] Care Teams Cementer Hand Relationship Specialty Start Date End Date Solomon Suazo MD [address] [place], [place] PCP - General 12/13/10
--- OUTSIDE RECORDS SUMMARY | 2025-07-09 12:38 | XMS_ITS | Encounter Summary ---
Author Organization [facility] Address [address] [place] [address] Phone Care Team Providers Care Web Coordinator Name Role Phone Amaya Hatfield MD Unavailable Jj Baldwin DO Unavailable [phone] Elba Bailey MD Unavailable [phone] Isabel Baker MD Unavailable [phone] Sena Nagy MD Unavailable Jj Baldwin DO Primary Care Provider [phone] Jj Baldwin DO Primary Care Provider [phone] Alexi Nunes MD Primary Care Provide r Pcp, Unknown Primary Care Provider Unavailabl e Pcp, Unknown Primary Care Provider Unavailabl e Eric Guerrero MD Primary Care Provider Reason for Referral * Physical Therapy (Routine) - Closed Specialty Diagnoses / Procedures Referred By Kayla hill Referred To Contact Physical Therapy Diagnoses Encounter for rehabilitation Jj Baldwin DO Phone: tel: fax: [email or web address] [address] [address] Phone: tel: Referral ID Status Reason Start Date Expiration Date Visits Re quested Visits Authorized [id number] Closed 01/23/2018 01/23/2019 12 12 Encounter Details Date Type Department Care Team (Latest Contact Info) Description 01/21/2018 Transcribe Orders [facility] [address] [place] [id number] Jj Baldwin DO [address] [place] [address] [email or web address] Encounter for rehabilitation (Primary Dx) Social [...] Description 01/10/2026 11:30 AM EDT Office Visit [facility] [address] [place] [phone] Elba Bailey MD [address] [facility], [address] [place] [phone] Scheduled Referrals Name Type Priority Associated Diagnoses Orde r Schedule Ambulatory referral to [facility] Physical Therapy Outpatient Referral Routine Encounter for rehabilitation Ordered: 01/21/2018 documented as of this encounter Visit Diagnoses Diagnosis Encounter for rehabilitation- Primary documented in this encounter Care Teams Web Coordinator Relationship Specialty Start Date End Date Jj Baldwin DO [address] [place] [address] PCP - General 10/17/17 02/03/18 Jj Baldwin DO [address] [place] [address] [email or web address] PCP - General Family Medicine 02/04/18 09/21/18 Alexi Nunes MD [address] [address] PCP - General Family Medicine 09/22/18 06/24/23 Pcp, Unknown PCP - General 06/25/23 09/24/23 Pcp, Unknown PCP - General 09/25/23 12/28/24 Eric Guerrero MD [address] [place] [phone] PCP - General Family Medicine 12/29/24 Amaya Hatfield MD [address] [place] [address] [email or web address] Historical LMR Provider 07/29/17 10/21/21 Jj Baldwin DO [address] [place] [address] [email or web address] Historical LMR Provider 07/29/17 10/21/21 Elba Bailey MD [address] [place] [phone] [email or web address] Historical LMR Provider 07/29/17 Isabel Baker MD [address] [place] [address] Historical LMR Provider 07/29/[address] [place] [address] [email or web address] Historical LMR Provider 07/29/17 10/21/21 documented as of this encounter Additional Source Comments The information contained in this document represents components of the legal health record. It is not the complete legal health record.[facility]
--- OUTSIDE RECORDS SUMMARY | 2025-07-09 12:38 | XMS_ITS | Clinical Summary ---
Author Organization [facility] Address [address] [place] [address] Phone Care Team Providers Care Insurance Special Agent Name Role Phone Elba Bailey MD Unavailable [phone] Eric Guerrero MD Primary Care Provider Allergies Active Allergy Reactions Criticality Noted Date Comments Garlic Diarrhea,Nausea and/or Vomiting 09/30/2018 Bloating/aches and pains/flu like symptoms Insulin Lispro Other (See Comments) Low 06/09/2023 ineffective Penicillins Hives,Fever 09/30/2018 Sulfa (Sulfonamide Antibiotics) Other (See Comments) 09/30/2018 Itching of anus, no where else Medications acyclovir (ZOVIRAX) 200 MG capsule Take by mouth daily. Active levonorgestreL (MIRENA) 20 mcg/24 hours (6 yrs) 52 mg intrauterine device 1 Device by Intrauterine route Once every 5 years. Active glucagon (GVOKE) 1 mg/0.2 mL subcutaneous syringe Inject 0.2 mL (1 mg total) under the skin once as needed for low blood sugar (provide value). 0.2 mL 2 09/28/20 22 Active PASSION FLOWER ORAL Take 1 capsule by mouth. Active Medication-Free Text 1 capsule. Lemon balm Active ASHWAGANDHA ROOT EXTRACT ORAL Take by mouth. With l-thinne Active HUMALOG U-100 INSULIN 100 unit/mL injection vialIndications:Ty pe 1 diabetes mellitus with diabetic mononeuropathy INJECT UP TO 100 UNITS A DAY DIRECTED VIA INSULIN PUMP. E10.40 30 mL 12 08/04/20 24 Active DEXCOM G7 SENSOR DeviIndications:Ty pe 1 diabetes mellitus with diabetic mononeuropathy Apply sensor as directed every 10 days 3 each 11 09/30/20 24 Active cholestyramine (QUESTRAN) 4 gram powder MIX 1/4 TO 1 SCOOP IN 8 OUNCES OF WATER OR ORANGE JUICE ONCE OR TWICE A DAY FOR DIARRHEA 30 DAYS 05/24/20 25 Active quercetin 500 mg Cap 03/17/20 25 Active acyclovir (ZOVIRAX) 200 MG capsule Take 1 capsule by mouth. 02/19/20 25 Active fluconazole (DIFLUCAN) 150 MG tablet TAKE 1 TABLET BY MOUTH EVERY WEEK FOR 180 DAYS. Active cetirizine (ZYRTEC) 10 MG tablet Take 10 mg by mouth 2 (two) times a day. 05/10/20 25 Active vit V-ohnmzyufd-uwikbn v,citrus (QUERCETIN COMPLEX) 625 mg Tab Take 1 tablet by mouth 2 (two) times a day. 07/05/20 25 Active Active Problems Problem Noted Date Diagnosed Date Vitamin D deficiency, unspecified 06/25/2023 Assessment & Plan (06/25/2023 1:16 PM EDT): Reports h/o deficiency On vit D supplementation now Due for vit D level, ordered Long-term insulin use 12/19/[address] 05/14/2020 Overview (05/16/2020): Tandem pump and Dexcom G6 started 05/11/20 Assessment & Plan (07/05/2025 12:27 PM EDT): Kamille is doing well on the [facility] insulin pump system, her TIR is improved and TAR2 frequency is much lower, insulin requirement is similar to previous but should decrease as her underlying insulin resistance issues Advised to continue to keep an eye on patterns, she is in touch with Sandra Orlando from clinical care team at [facility] regarding dosing considerations Kamille is scheduled to return in 6 months, she is advised to reach out with any questions or concerns Assessment & Plan (01/04/2025 2:33 PM EDT): Images from the original note were not included. We did not adjust insulin pump settings today Advised to continue to keep an eye on patterns We discussed insulin pump options as Kamille is due to upgrade her current insulin pump, she has information on the iLet insulin pump system at home and will look into this more as there are features of this insulin pump that intrigue her, she is concerned about a reliance on CGM for all automated function Kamille is scheduled to return in 3 and 6 months, she is advised that she will also be scheduled for pump training Assessment & Plan (01/17/2024 12:23 PM EDT): Kamille insulin pump setting Time Basal Rates? ICR ISF Target IOB 12am 0.65u/hr 9 45 110mg/dl 5hrs 715am 0.65 8 45 12pm 0.6 8 45 3 hrs when not in CIQ 9pm 0.70 7 45 TOTAL 15.450u/day No changes made today though we did discuss potential changes to dinner ICR as well as running out of sleep mode overnight to benefit from auto corrections if noticing blood sugar remains too high for too long overnight where basal increases take longer to reduce blood sugars Kamille is also advised to continue to bolus insulin prior to eating as consistently as she can. Pump settings transferred to replacement pump appropriately I will check in on pump data in 1-2 weeks and reassess for any further adjustments once Kamille is back on the pump and CGM consistently Encouraged to contact me with any questions or concerns Assessment & Plan (11/13/2023 4:04 PM EST): Kamille insulin pump setting (changes in bold) Time Basal Rates? ICR ISF Target IOB 12am 0.65u/hr 9 45 110mg/dl 5hrs 715am 0.65 8 45 12pm 0.6 8 45 3 hrs when not in CIQ 9pm 0.70 7 45 TOTAL 15.450u/day We adjusted insulin pump settings today as noted above, increase in insulin delivery with corrections should help to reduce time in hyperglycemic ranges as well as need for recorrections, Kamille is also advised to continue to bolus insulin prior to eating as consistently as she can. Carb ratio change at 730 was discussed with Kamille to compensate for later meals where blood sugars tend to rise, this was a change that Ronel had discussed with Kamille after their last visit, Kamille is encouraged to adjust this if she feels comfortable Changes made to sleep mode schedule moving it to 12a-7a, which should help allow autocorrections before activation and tighter target going into the first meal of the day Encouraged to contact me with any questions or concerns Assessment & Plan (06/25/2023 1:12 PM EDT): PO insulin pump setting Time Basal Rates? ICR ISF Target IOB 12am 0.75u/hr 9 50 110mg/dl 5hrs 715am 0.50 7 50 12pm 0.625 7 50 4 hrs when not in CIQ 9pm 0.70 8 50 TOTAL 15.385u/day We adjusted insulin pump settings today as noted above, increase in insulin delivery at meals should allow for less prandial rise, Kamilel is also advised to bolus insulin prior to eating as consistently as she can, and changes in basal patterns should stabillize glucose patterns while at work Utilizing exercise mode with good effect when needed Encouraged to contact me with any questions or concerns Assessment & Plan (12/21/2022 1:35 PM EST): Current insulin pump setting Time Basal Rates? ICR ISF Target IOB 12am 0.75u/hr 11 50 110mg/dl 5hrs 715am 0.6 8 50 12pm 0.6 8 50 4 hrs when not in CIQ 9pm 0.70 9 50 TOTAL 15.8u/day We did not adjust insulin pump settings today, these are likely to work well for Kamille if she is more consistent with premeal insulin dosing, we discussed that this will likely increase her TIR Will continue to run in exercise mode for now, as she becomes more consistent with mealtime bolusing we may experiment with lowering basal rates so that Kamille does not need to be in exercise mode consistently We reviewed CGM data Assessment & Plan (06/26/2022 1:30 PM EDT): Current insulin pump setting Time Basal Rates? ICR ISF Target IOB 12am 0.75u/hr 11 50 110mg/dl 5hrs 715am 0.6 8 50 12pm 0.6 8 50 4 hrs when not in CIQ 9pm 0.70 9 50 TOTAL 15.8u/day We did not adjust insulin pump settings today, these had been working well for Kamille prior to her recent emotional struggles and I expect that once things settle down for her she will again have more optimal control Overall patterns are reassuring with some variability which is not unexpected with respect to Kamille's stressors Advised to continue to take insulin for all carbs Given another Dexcom sample pack, also CGM reports to share with [employer] for insurance approval of CGM supplies Assessment & Plan (12/19/2021 1:57 PM EST): New insulin pump setting Time Basal Rates? ICR ISF Target IOB 12am 0.75u/hr 11 50 110mg/dl 5hrs 715am 0.6 8 50 12pm 0.6 8 50 4 hrs when not in CIQ 9pm 0.70 9 50 TOTAL 15.8u/day We adjusted carb ratios during the day to help optimize prandial glucose control and reduce postprandial rise in glucose Advised to take insulin for all carbs, this too will help reduce prandial rise May need adjustment in overnight basal rates if more consistent carb coverage is not enough to lower overnight readings, data indicates fairly consistent autobasal increase in the overnight period Assessment & Plan (05/16/2021 1:06 PM EDT): Current insulin pump setting Time Basal Rates? ICR ISF Target IOB 12am 0.75u/hr 11 50 110mg/dl 5hrs 715am 0.60 9 50 12pm 0.60 9 50 3 hrs when not in CIQ 6pm 0.70 9 50 TOTAL 16.1u/day We discussed optimizing basal rates late in day and overnight to improve overall patterns while in sleep mode We discussed using extended boluses for larger/higher carb meals Doing well with current infusion sets Encouraged to continue excellent self management efforts and to be in touch with us with any questions or concerns Assessment & Plan (11/27/2020 5:19 PM EST): Current insulin pump setting Time Basal Rates? ICR ISF Target IOB 12am 0.8u/hr 11 50 110mg/dl 5hrs 7:15am 0.7 9 50 12pm 0.7 9 50 6pm 0.75 9 50 We discussed the above changes as noted in bold, increase in evening and overnight basal rates to reduce elevations in glucose, optimized I:C ratio to help with insulin delivery at meals/snacks We discussed sleep mode in detail and the benefits of this setting overnight Idiopathic peripheral neuropathy 12/03/2019 Type 1 diabetes mellitus with diabetic mononeuro brigette 09/30/2018 Overview (09/30/2018): DIABETES HISTORY Diagnosis - type 1 diabetes, dx age 11 Treatment - MDI basal bolus with carb counting/ISF, on insulin pump in the past Assessment & Plan (07/05/2025 12:24 PM EDT): Doing well on fully automated insulin pump/CGM integrated AID system, we discussed some considerations for bolusing and Kamille remains in close contact with clinical steam hammer operator from [facility] with questions Kamille is in midst of evaluation for possible POTS and has been diagnosed with MCAS, we discussed how these may impact diabetes management and how this has affected her insulin requirement Kamille continues to be more consistent with premeal dosing Kamille is encouraged to do her best with healthy lifestyle habits as consistently as she can, she is out of work currently due to medical issues and activity has been impacted in general Most recent routine labs are from fall 2022 but these are up to date with 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 Kamille will return in 6 months to follow up with oh Assessment & Plan (01/04/2025 2:28 PM EDT): Doing well on insulin pump/CGM integrated AID system, has had some ongoing stressors and menopausal issues which have impacted insulin requirement, Kamille has been able to maintain reasonable control though this has required a significant amount of attention and pump adjustments We did not adjust insulin pump settings today We discussed pump options now that Lilia's pump is out of warranty We specifically discussed the possible benefits of the [facility] insulin pump as noted Kamille has tried to be more consistent with premeal dosing, if these are delayed then meal elevations are much more likely to be significant Kamille is encouraged to do her best with healthy lifestyle habits as consistently as she can Most recent routine labs are from fall 2022 and Kamille reports that she is due for these and will be meeting with a new PCP soon Kamille will return in 3 months with Sivan Montes De Oca and in 6 months with me, she is advised that if she upgrades to a new insulin pump she will also be scheduled for training Assessment & Plan (01/17/2024 12:20 PM EDT): Doing well on insulin pump/CGM integrated AID system, Kamille has been able to maintain reasonable control and is reassured by today's A1c Recent life stressors has complicated control, Kamille is encouraged to take diabetes management in stride during stressful times, discussed strategies to aid with this Revisited how hormones can impact glycemic control, making insulin resistance worse She has had glucose variability per her report, per CGM is appears that this is at least partly due to late mealtime boluses though Kamille reports bolus timing has been much improved recently, bolusing ahead for most meals We discussed possible changes, although I feel it is more appropriate to wait until there is more data on replacement pump to evaluate for adjustments since Kamille was off the insulin pump for a few days leading up to starting the replacement pump Kamille is encouraged to do her best with healthy lifestyle habits as consistently as she can Routine labs up to date and reviewed, LDL elevated but low HDL/TG ratio is reassuring, all other labs reassuring including thyroid and renal function, BMP ordered at Kamille's request to check in on renal function Kamille will return in March with Sivan and in June with Dr. Bailey, but I will check in with her in the next 1-2 weeks to see how diabetes management is going Assessment & Plan (11/13/2023 3:59 PM EST): Doing well on insulin pump/CGM integrated AID system, Kamille has been able to maintain reasonable control but has been needing to put in more work to diabetes management to maintain similar level of control and this has been stressful Discussed how hormones can impact glycemic control, making insulin resistance worse She has had glucose variability per her report, per CGM is appears that this is at least partly due to late mealtime boluses though Kamille reports bolus timing has been much improved in the past, discussed this variability could be also related to hormonal changes We discussed tightening correction factor so Kamille benefits from more insulin with both auto-corrections and when she opts to get a correction from the pump Kamille is encouraged to do her best with healthy lifestyle habits as consistently as she can We also adjusted sleep mode timing to start and end later so that Kamille may benefit from autocorrections after occasionally late dinners and be kept a tighter target going into the first meal/beverage of the day Routine labs up to date and reviewed, LDL elevated but low HDL/TG ratio is reassuring, all other labs reassuring including thyroid and renal function Kamille will return in [address] Bailey, but I will check in with her in the next 1-2 weeks to see how diabetes management is going Assessment & Plan (06/25/2023 1:15 PM EDT): Doing well on insulin pump/CGM integrated AID system, despite recent stressors and health issues, Kamille has been able to maintain reasonable control and this is likely at least partly due to the automation in basal delivery and autocorrections She has had glucose variability per her report, per CGM is appears that this is at least partly due to late mealtime boluses We discussed that her TIR would likely significantly increase and variability decrease if she were more consistent with premeal insulin delivery, she will continue to work on this Kamille is encouraged to do her best with healthy lifestyle habits as consistently as she can We adjusted some delivery settings to help stabilize patterns while working We do not have any routine labs to review and Kamille reports that she is due for these, these are ordered today Kamille will return in 3 months with Ronel Dai and in 6 months with oh Assessment & Plan (12/21/2022 1:32 PM EST): Doing well on insulin pump/CGM integrated AID system, despite recent stressors Kamille has been able to maintain reasonable control and this is likely at least partly due to the automation in basal delivery and autocorrections We discussed that her TIR would likely significantly increase and variability decrease if she were more consistent with premeal insulin delivery, she will continue to work on this Kamille is encouraged to do her best with healthy lifestyle habits as consistently as she can Currently running patterns consistently in exercise mode which makes overall glucose target more conservative at 140, we discussed that Kamille could instead lower basal rates by 25-30% and try regular mode however this would be best achieved if she was also taking insulin prior to eating so she is advised to start with this We do not have any routine labs to review but thyroid function should be monitored annually in addition to usual lipid and metabolic screening and urine microalbumin Kamille has features of possible diabetic mastopathy on a recent biopsy report, improvement in glucose control may be helpful in reducing fibrotic tissue buildup related to this, advised to also discuss with her machine stemmer Kamille will return in 3 months with Ronel Dai and in 6 months with me Assessment & Plan (06/26/2022 1:34 PM EDT): Doing well on insulin pump/CGM integrated AID system, despite recent stressors Kamille has been able to maintain reasonable control and this is likely at least partly due to the automation in basal delivery and autocorrections Kamille is encouraged to do her best with healthy lifestyle habits as consistently as she can, once she gets back to more consistent patterns she is encouraged to let me know if any concerning CGM patterns arise which may indicate need for infusion setting adjustments Kamille has an upcoming follow up appointment with me already booked and will set up a routine follow up in 3 months with Ronel Dai, we will continue to follow up every 3 months, Kamille is encouraged to call or message us via patient portal as needed as well We do not have any routine labs to review but thyroid function should be monitored annually in addition to usual lipid and metabolic screening and urine microalbumin Assessment & Plan (12/19/2021 2:00 PM EST): Doing well on insulin pump/CGM integrated AID system, continues with overall improvement in self management and overall glucose control, Kamille continues to have fairly wide variability in glucose patterns largely owing to prandial elevations We again briefly reviewed CIQ functions, including autocorrections, autosuspensions, autobasal adjustments, etc We reviewed benefits of using extended bolus feature in some situations We reviewed some changes to insulin pump settings, carb ratios in particular, as noted, Kamille is advised to try to bolus for all carbs, this will help prandial glucose control Kamille has upcoming follow up appointments already booked with me and CDE, we will continue to follow up every 3 months, Kamille is encouraged to call or message us via patient portal as needed as well We do not have any routine labs to review but thyroid function should be monitored annually in addition to usual lipid and metabolic screening and urine microalbumin Assessment & Plan (05/16/2021 1:15 PM EDT): Doing well on insulin pump/CGM integrated AID system, continues with overall improvement in self management and overall glucose control, we spent much time talking about this today We reviewed CIQ functions, including autocorrections, autosuspensions, autobasal adjustments, etc We reviewed appropriate times to manually override recommendations, such as IOB when infusion set has malfunctioned, cautioned to try to override pump recommendations only in very rare situations We discussed benefits of using extended bolus feature in some situations We reviewed positive changes in patterns on current CGM download compared to the last available and Kamille is encouraged to continue her excellent efforts We reviewed some changes to insulin pump settings, basal rates in particular, as noted Kamille has several upcoming follow up appointments already booked with us and we will see her every 3 months for follow up, she is encouraged to call or message us via patient portal as needed as well We do not have any routine labs to review but thyroid function should be monitored annually in addition to usual lipid and metabolic screening Assessment & Plan (11/27/2020 5:26 PM EST): Lilia transitioned to AID last summer using the Tandem X2 with Dexcom CGM in CIQ We discussed insulin pump changes today as noted, these should optimize Lilia's glucose control We discussed some features of CIQ in particular sleep mode and the likely benefits of this on glucose control overnight, the previous issues that Lilia was having with sleep mode were likely related to inappropriate basal rate settings, Lilia is aware that these may need to be adjusted further if not effective We discussed different types of infusion sets Overall control continues to be poor but with above changes in infusion settings Lilia may find increase in TIR Significant life stressors are likely contributing to challenges with glucose control Up to date on podiatric care, notes reviewed Advised to contact me with any questions or concerns, will return to meet with nutrition educator in 3 months Assessment & Plan (03/17/2020 9:41 PM EDT): Would benefit from CGM if covered by insurance, we will try to authorize this for Kamille Evaluating glucose patterns may be helpful in more proactively managing blood sugars and stabilize overall control Encouraged to continue current basal insulin dosing and current I:C ratio and ISF, we discussed the benefits of using an insulin syringe with 1/2u markings which may make insulin dosing more flexible for more correct dosing Kamille is interested in insulin pump therapy and a system with CGM integrated may serve her well, will be scheduled for Diabetes Tech 101 class to learn about insulin pump options Encouraged to call with any questions or concerns Assessment & Plan (12/29/2019 12:31 PM EDT): We discussed criteria for insulin pump/CGM, Kamille will get logs for us documenting consistent 4 times daily blood sugar monitoring We discussed two insulin pump/CGM systems that currently allow for automated insulin delivery as hybrid closed loop systems, [employer] and [employer], she is encouraged to look into these and reach out to the respective companies so that a query of insurance coverage can be undertaken, orders will be submitted accordingly We revisited dosing based on I:C ratio and ISF at meals, Kamille is encouraged to take her time and mindfully adjust these doses based on type of meal being eaten (not just the total carbs) and any completed or planned activity and to also factor in stress level She will continue Toujeo 42u daily, this has caused less low blood sugars on waking Encouraged to continue healthy lifestyle as consistently as she can Advised to message me through the patient portal with any questions or concerns and to submit blood sugar logs in that manner as well Assessment & Plan (10/31/2019 9:35 PM EST): Kamille continues to have highly variable glucose patterns which are due most likely to a mismatch of her basal and bolus insulin doses We discussed a lower dose of basal insulin in order to reduce risk of hypoglcyemia in fasting periods particularly overnight and a higher dose of meal time insulin to help control prandial blood sugars Kamille is advised to eat meals as consistently as possible She is also encouraged to monitor blood sugars on waking and prior to eating at minimum, monitoring blood sugars 2hr after meals will aid in monitoring effect of insulin doses at meals We discussed the likely benefit of a continuous glucose monitor trial, Kamille had agreed to this in the past but unfortunately the previous sensor fell off on the same day it was placed, Kamille was agreeable to another trial and a sensor was placed today Encouraged to call with any questions or concerns, we will follow up in 3 months Encouraged to schedule visit with podiatry CGM Trial Type of Diabetes: Diabetes mellitus Type 1 Procedures: Glucose Monitoring: Type of Sensor: Lurdes Pro, Instruction: Patient Instructed on:, Calibrations, When to test BS, Troubleshooting, What to expect with the sensor, Patient instructed to remove sensor if redness, pain or bleeding occurs. . Insertion Site Selected: arms, right arm Site Prep: Insertion site wiped with alcohol. Insertion: completed, area looks good, no redness, no bleeding. Plan: Procedure Codes: 75327 Glucose monitoring, cont Assessment & Plan (04/01/2019 10:16 PM EDT): Very interested in resuming insulin pump therapy particularly technology integrated with CGM We discussed the challenges currently of monitoring an adequate amount in order to qualify for CSII, we will plan to do a CGM eval and this may serve as criteria for CGM coverage qualification, we discussed the benefits of having CGM to help manage blood sugar patterns and evaluate insulin doses, this information will be helpful in transitioning to insulin pump therapy in the future and more immediately will help with blood sugar control Having much hypoglycemia on waking, unfortunately from current data it is unclear whether this is due to too much insulin dosing for evening meal or simply too high of a basal insulin dosage, for now we discussed reducing basal insulin and Kamille is aware that this may mean that she will need more insulin for meals and corrections during the day Advised to monitor blood sugars as consistently as she can, she is aware that she is blinded during the CGM trial We will follow up to discuss CGM trial results Encouraged to aim for a healthy diet and consistent exercise Advised to call with any questions or concerns CGM Trial Type of Diabetes: Diabetes mellitus Type 1 Assessment/HPI: Kamille is here today for CGM trial. Procedures: Glucose Monitoring: Type of Sensor: Lurdes Pro, Instruction: Patient Instructed on:, Calibrations, When to test BS, Troubleshooting, What to expect with the sensor, Patient instructed to remove sensor if redness, pain or bleeding occurs. . Insertion Site Selected: left arm Site Prep: Insertion site wiped with alcohol. Insertion: completed, area looks good, no redness, no bleeding. Plan: Procedure Codes: 64686 Glucose monitoring, cont Assessment & Plan (09/30/2018 11:28 AM EST): We discussed a need for lower basal insulin dosage to help prevent hypoglycemia overnight/on waking Aware that with decreased Toujeo dosing will need to return to her usual Humalgo I:C ratio otherwise she will likely experience elevated postprandial/random glucose readings, advised to continue relaxed ISF for now Still interested in insulin pump therapy, advised that needs to monitor blood sugars 4+ times per day and will return for meter download so we can resubmit order for insulin pump and supplies Encouraged to continue healthy diet and continue to work toward injury recovery so that she can return to her usual level of activity, advised that she will likely need insulin dosing adjustments as she becomes more active due to changes in insulin sensitivity Kamille is encouraged to call with any questions or concerns, she will return in 3 months to meet with our educator staff and in 6 months with me; we will also schedule a pump start when she receives her insulin pump device and supplies Resolved Problems Problem Noted Date Diagnosed Date Resolved Date Insulin pump fitting or adjustment 05/14/2020 07/05/2025 Encounters Date Type Department Care Team Description 07/05/2025 11:40 AM EDT Office Visit [facility] [address] [place] [address] Elba Bailey MD Type 1 diabetes mellitus with diabetic mononeuropathy (Primary Dx); Insulin pump in place from Last 3 Months Social History Tobacco Use Types Packs/Day Years Used Date Smoking Tobacco: Never Smokeless Tobacco: Never Tobacco Cessation:Counseling Given: Not Answered Alcohol Use Standard Drinks/Week Comments Not Currently [...] Orientation Straight 09/17/2022 10 :09 AM EST Last Filed Vital Signs Vital Sign Reading Time Taken Comments Blood Pressure 126/84 07/05/2025 11:30 AM EDT Pulse 73 07/05/2025 11:30 AM EDT Temperature 36.2 C (97.2 F) 06/26/2022 11:21 AM EDT Respiratory Rate 16 11/05/2020 4:35 PM EST Oxygen Saturation 99% 01/04/2025 1:18 PM EDT Inhaled Oxygen Concentration - - Weight 70.3 kg (155 lb) 07/05/2025 11:30 AM EDT Height 163.8 cm (5' 4.49 ) 07/05/2025 11:30 AM E DT Body Mass Index 26.2 07/05/2025 11:30 AM EDT Plan of Treatment Upcoming Encounters Date Type Department Care Team (Late st Contact Info) Description 01/10/2026 11:30 AM EDT Office Visit [facility] [address] [place] [address] Elba Bailey MD [address] [facility], [address] [place] [address] [email or web address] Health Maintenance Due Date Last Done Comments DEPRESSION SCREENING 1991 HEPATITIS C SCREENING 1997 HIV ONE-TIME SCREENING (18-65 YEARS) 1997 PAP SMEAR 2000 PNEUMOCOCCAL VACCINES (0-49 years) (2 of 2 - PCV) 10/25/2018 10/25/2017 MAMMOGRAM 2019 DIABETIC EYE EXAM 03/27/2024 03/27/2023 LIPID PANEL 06/25/2024 06/25/2023 URINE MICROALBUMIN/CREATININE RATIO 06/25/2024 06/25/2023, 09/22/2018 COLOGUARD 2024 COLONOSCOPY 2024 COLORECTAL CANCER SCREENING 2024 FIT TEST 2024 FOBT 2024 SIGMOIDOSCOPY 2024 VIRTUAL COLONOSCOPY 2024 INFLUENZA VACCINE (#1) 2025 2, 09/09/2011, 07/31/2010 COVID-19 VACCINE ( season) 2025 BLOOD PRESSURE 01/02/2026 07/05/2025 HEMOGLOBIN A1C 01/02/2026 07/05/2025, 03/15, 01/04/2025, Additional history exists Adult Td,Tdap Booster 11/01/2026 11/01/2016, 007 SMOKING STATUS SCREENING (Once After 26 Yrs) Completed 01/04/2025 HEPATITIS A VACCINES Aged Out No long er eligible based on patient's age to complete this topic HIB VACCINES Aged Out No longer eligi ble based on patient's age to complete this topic MENINGOCOCCAL VACCINES (ACWY) Aged Out No longer eligible based on patient's age to complete this topic MENINGOCOCCAL VACCINES (B) Aged Out N o longer eligible based on patient's age to complete this topic Medical Devices Not on file Procedures Procedure Name Priority Date/Time Associated Diagnosis Comments POCT HEMOGLOBIN A1C Routine 07/05/2025 1 2:09 PM EDT Type 1 diabetes mellitus with diabetic mononeuropathy Insulin pump in place MICROALBUMIN/CREATI NINE RATIO, RANDOM URINE Routine 06/25/2023 12:57 PM EDT Type 1 diabetes mellitus with diabetic mononeuropathy LIPID PANEL Routine 06/25/2023 12:54 PM EDT Type 1 diabetes mellitus with diabetic mononeuropathy DIABETES EYE EXAM FOR RESULT ENTRY ONLY Routine 03/27/2023 from Last 3 Months or Most Recently Relevant to Health Maintenance Results * (ABNORMAL) POCT Hemoglobin A1c (07/05/2025 12:09 PM EDT) Hemoglobin A1c 7.7(A) 4.2 - 5.6 % [employer] [employer] Other 07/05/2025 12:0 9 PM EDT Elba Bailey MD POINT OF CARE TEST ORDERABLES F inal Result Performing Organization Address City/[facility]/ZIP Co de Phone Number [facility] [address] [place] [address], [facility] * Microalbumin/creatinine ratio, random urine (06/25/2023 12:57 PM EDT) URINE MICROALBUMIN <1.2 0 - 2.3 mg/dL [facility] URINE CREATININE 62 mg/dL [facility] MICROALB/CRE RATIO NOT CALCULATED 0 - 20 mg/g Cre [facility] Comment:due to Microalbumin <1.2 Urine (Urine) 06/25/2023 12: 57 PM EDT 06/25/2023 12:59 PM EDT us Elba Bailey MD URINE ORDERABLES Final Result Performing Organization Address [facility] Co de Phone Number [address] [address] * (ABNORMAL) Lipid panel (06/25/2023 12:54 PM EDT) HDL 71 mg/dL [facility] Comment: Interpretation <40 mg/dL: Low HDL cholesterol (major risk factor for CHD) Greater than or equal to 60 mg/dL: High HDL cholesterol ( negative risk factor for CHD) HDL - cholesterol is affected by a number of factors, e.g. smoking, excerise, hormones, sex and age. CHOLESTEROL 214 0 - 240 mg/dL [facility] TRIGLYCERIDES 64 30 - 160 mg/dL [facility] LDL 130(H) 50 - 129 mg/dL [facility] Comment: LDL levels in terms of risk for coronary heart disease: <100 mg/dL: Optimal 100-129 mg/dL: Near or above optimal 130-159 mg/dL: Borderline high 160-189 mg/dL: High >190 mg/dL: Very High CARDIAC RISK RATIO 3.0(L) 3.3 - 4.4 [facility] Blood 06/25/2023 12:5 4 PM EDT 06/25/2023 12:56 PM EDT us Elba Bailey MD LAB BLOOD ORDERABLES Final Resu lt [facility] [address] [place] [address] * DIABETES EYE EXAM FOR RESULT ENTRY ONLY (03/27/2023) EYE EXAM SEE SCANNED REPORT us Historical Provider HEALTH MAINTENANCE Final Result from Last 3 Months or Most Recently Relevant to Health Maintenance Insurance [facility] POS [facility] Care Teams Insurance Special Agent Relationship Specialty Start Date End Date Eric Guerrero MD [address] [place] [id number] PCP - General Family Medicine 12/29/24 Ebla Bailey MD [address] [address] [email or web address] Historical LMR Provider 07/29/17 Additional Source Comments The information contained in this document represents components of the legal health record. It is not the complete legal health record.[facility]
== END ==
LOC: HO.CARD 10:53
PROVIDERS: PCP Family Medicine; Visit Provider Nurse Practitioner Family
DX: R00.2 Palpitations (principal)
CPT/HCPCS: 93270

== ENCOUNTER → 2025-07-09 10:56 | Outpatient (BNV) | payer BC, SELFPAY | PROVIDERS: PCP Family Medicine; Visit Provider Internal Medicine | DX: I49.3 Ventricular premature depolarization (principal); R00.0 Tachycardia, unspecified | CPT/HCPCS: 93272 ==

== ENCOUNTER 2025-08-26 12:04 | Outpatient (AMB) | payer SELFPAY ==
--- OUTSIDE RECORDS SUMMARY | 2025-08-18 03:30 | XMS_ITS ---
Author Organization [facility] Address [address] [place] [address] Care Team Providers Care Recoverer Name Role Phone Eric Guerrero Primary Care Provider Unavailab Jj Leary [phone] REASON FOR VISIT screening Encounters Encounter Location Date Provider Diagnosis [facility] Outpatient [address], [place] [id number] 08/18/2025 Jj Og Plan Of Treatment No Information Progress Notes * WENDIE CORONADODOB:1980 (44 yo F)Acc No.[id number]:08/18/2025 COLON WITH MAC Patient: WENDIE MORENO Provider: Alisha Og MD :1980 A ge:44 Y S ex:Female Date:08/18/2025 Address:[address] [place], [place] [phone] Pcp:Eric Guerrero Subjective: * Chief Complaints: * 1 . Screening. * Medical History: Objective: * Vitals: Assessment: Plan: * Treatment: * * The named appointment provid er may or may not be the originator of this progress note, and it is not deemed complete until electronically signed by the appointment provider. Sign off status: Pending * Provider: Alisha Og MD Date: 10/18/2024 Generated for Umer hernandez/Yvette/eTransmitting on: 10/26/2024 03:18 PM EST
--- NOTE | 2025-08-26 12:14 | A.OFFPC_ITS ---
Vital Signs 08/26/25 12:28 Height 5 ft 4.5 in Weight 157 lb 6 oz BMI 26.6 BP 130/86 Blood Pressure Location Rt brachial Position Sitting Respiration 16 Pulse 74 Pulse Source Pulse Oximeter Temp 97.5 F Temp Source Oral Pulse Oximetry (%) 100 Oxygen Delivery Method Room Air Intake Visit Reasons: F/u medications and care (SELFPAY) Intake Note: patient is scheduled to follow up with pcp for ed follow up for heart palpataions ekg was done in office Spanish Literature Professor Required: No Allergies Sulfa (Sulfonamide Antibiotics) (SULFA (SULFONAMIDE ANTIBIOTICS)) Allergy (Intermediate, Verified 08/26/25 12:24) ITCHING sulfamethoxazole (From Bactrim) Allergy (Intermediate, Verified 08/26/25 12:24) Itching trimethoprim (From Bactrim) Allergy (Intermediate, Verified 08/26/25 12:24) Itching Penicillins (PCN) Allergy (Mild, Verified 08/26/25 12:24) HIVES Medication List - Last Reconciled 08/26/25 by Eric Guerrero MD acyclovir 200 mg PO TID albuterol sulfate 90 mcg/actuation (Ventolin HFA) 2 puffs inhalation Q4-6H PRN 30 days cetirizine (All Day Allergy (cetirizine)) 10 mg PO DAILY PRN 90 days cromolyn mg PO fluconazole 150 mg PO QWEEK insulin lispro (Humalog U-100 Insulin) 1 sliding scale dose subcut USEASDIRECTD metoprolol succinate ER 25 mg PO DAILY tiotropium bromide 1.25 mcg/actuation (Spiriva Respimat) 2 puffs inhalation QAM Tobacco use date assessed: 01/12/25 Dental Screening Dental Screen Date: 01/12/25 HPI F/u medications and care (SELFPAY) HPI Details 44 y/o female presents to f/u chronic co nditions. Recent ED visit for heart palpitations. Work up had been unremarkable. Had been seen by Cardiology. Workup negative. 30-day long holter monitor which showed rare ventricular ectopy and palpitatons correlated with ventricular couplet. Blood pressure today 130/86, 74p. PFSH Medical History (Updated 08/16/25 @ 10:38 by Minna Aguilera RN) Mast cell activation syndrome Type 1 diabetes mellitus Depression Anxiety Rash Memory loss Neuropathy Incontinence Esophageal ulcer GERD (gastroesophageal reflux disease) IBS (irritable bowel syndrome) Arthritis Palpitations Asthma Surgical History (Updated 08/16/25 @ 10:41 by Minna Aguilera RN) H/O colonoscopy History of esophagogastroduodenoscopy (EGD) History of right oophorectomy Hx of section S/P cholecystectomy S/P tonsillectomy Family History Brother Substance abuse in family High blood pressure Paternal Uncle Substance abuse in family Maternal Grandmother Substance abuse in family High blood pressure Diabetes Thyroid disorder Mother High blood pressure Diabetes Thyroid disorder Father High blood pressure Alcoholism Paternal Grandfather High blood pressure Thyroid disorder Paternal Grandfather High blood pressure Thyroid disorder Unknown Diabetes Alcoholism Paternal Grandmother Alcoholism Maternal Grandfather Alcoholism Social History Housing: House Patient Tobacco Use Status: Never used Tobacco e-Cigarette/Vaping Use: Never Used Second Hand Smoke Exposure: No service: No Current occupational status: employed 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 Cognitive needs: No Hearing needs: No Vision needs: Yes (Patient wears glasses) Questionnaire Thrive Questionnaire Date Thrive assessed: 01/12/25 I am a: Patient What is your living situation today?: I have a steady place to live Within the past 12 months, did the food you bought not last and you didn't have the money to get more?: Never true Within the past 12 months, did you worry whether your food would run out before you got money to buy more?: Never true Do you have trouble paying for medicines?: No Do you have trouble getting transportation to medical appointments?: No Do you have trouble paying your heating and electricity bill?: No Do you have trouble taking care of your child, family member or friend?: No Do you have trouble with day-to-day activities such as bathing, preparing meals, shopping, managing finances, etc.?: No Are you currently unemployed and looking for a job?: No Are you interested in more education?: Yes Please select the resources that you would like help with: None Currently or been in a relationship where the following occur: No concerns reported THRIVE Score: 0 TORO-7 AMB Questionnaire TORO-7 Date TORO - 7 assessed: 01/12/25 Source: Developed by Drs. Jj Sanchez, Karlie Perez, Blade Muhammad and colleagues, with an educational kelley from [employer]. Review of Systems Const Denies chills, Denies fatigue, Denies fever(s), Denies headache(s) and Denies weakness ENT Denies dizziness and Denies headache(s) Card Denies dyspnea Resp Denies cough, Denies dyspnea, Denies wheezing and Denies other (shortness of breath) Musc Denies numbness and Denies tingling Neuro Denies dizziness, Denies headache(s), Denies numbness, Denies tingling and Denies weakness Psych Denies anxiety and Denies depression Endo Denies fatigue Aller/Immun Denies wheezing Physical exam (Primary Care) Vital Signs: Last Vital Signs Temp 97.5 F 08/26/25 12:28 Pulse 74 08/26/25 12:28 Resp 16 08/26/25 12:28 BP 130/86 08/26/25 12:28 Pulse Ox 100 08/26/25 12:28 Oxygen Delivery Method Room Air 08/26/25 12:28 BMI result Body Mass Index 26.6 Tobacco/Smoking Status: Tobacco use Status Tobacco use date assessed 01/12/25 08/26/25 12:15 Patient Tobacco Use Status Never used Tobacco 08/26/25 12:15 e-Cigarette/Vaping Use Never Used 08/26/25 12:15 Thrive Assessment: Date of Thrive Assessment Date Thrive assessed 01/12/25 08/26/25 12:15 Currently or been in a relationship where the following occur: No concerns reported Const General: well developed; No acute distress Nutritional Appearance: well nourished Orientation/consciousness: patient oriented x3 HENMT Head: Yes normocephalic and Yes atraumatic Eyes General: appearance normal, both eyes and all related structures Pupils: Equal, round and reactive pupils present EOM: EOMs intact bilaterally Resp Effort & Inspection: normal respiratory effort Neuro General: patient oriented x3 and gait normal Cranial nerves: Yes Equal, round and reactive pupils present Psych Affect: normal affect Coding Level of Care Code Est Pt Level 5 (03538) Diagnoses Palpitations R00.2 Depression with anxiety F41.8 Assessment & Plan Assessment & Plan (1) Palpitations: Code(s): R00.2 - Palpitations Category: Medical (2) Depression with anxiety: Code(s): F41.8 - Other specified anxiety disorders Category: Medical Plan Patient with multiple complaints of palpitations and also SOB/Dizziness. She has been to the ED and workup was unremarkable. She has been seen by Cardiology EKG was normal. She has had a stress test which did not show any ischemia or infarction She has had an echocardiogram which was normal She had a 30 day long Holter monitor test which showed rare ventricular ectopy and palpitations correlated with ventricular couplet. She has a tilt-table test scheduled. She has been started on metoprolol. Blood pressure today 130/86 and heart rate 74. Patient feels certain that she has an underlying cardiac disease or problem and states that she has mast cell activation syndrome as well as potentially POTS and autonomic dysfunction. We had a long discussion today. 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 I feel that she has significant anxiety and depression from any underlying problems that she is worried about. We discussed that I want to try and help her with the anxiety and depression as the stress and somatic changes from these are likely exacerbating any other un derlying issues such as palpitations. She says she has been on fluoxetine in the past. I think this would be a little too activating and I will try starting her on sertraline. Will also give her some clonidine for acute exacerbations. She is already on a beta-davidson however her underlying cardiac rhythms and overall cardiac workup are reassuring enough to try some clonidine. Avoiding using a benzodiazepine for acute exacerbations due to a history alcohol misuse. Will follow-up in month Medications: New sertraline 50 mg PO DAILY 90 tabs 3RF 90 days clonidine HCl #20 tabs per 30 days 0.1 mg PO DAILY PRN 20 tabs 1RF anxiety 30 days
[2025-08-26 12:28] VITALS: BP 130/86; PULSE 74; RESP 16; TEMP 36.4; O2SAT 100; BMI 26.6
--- OUTSIDE RECORDS SUMMARY | 2025-08-26 15:19 | XMS_ITS | Clinical Summary ---
Author Organization [facility] it Address [address] [place] [address] Care Team Providers Care Telephone Answerer Name Role Phone Solomon Suazo MD Primary [...] Info) Description 09/07/2025 1:00 PM EST Appointment [facility] [address] [place] [address] Health Maintenance Due Date Last Done Comments Breast Cancer Screening 1980 Colorectal Cancer Screening: Colonoscopy 1980 Diabetes: Annual GFR (Glomer ular Filtration Rate) 1979 Diabetes: Annual Foot Exam 1989 Diabetes: Annual Retina Eye Exam 1989 DTaP,Tdap,and Td Vaccines (1 - Tdap) 1998 Hepatitis B Vaccines (1 of 3 - 19+ 3-dose series) 1998 Cervical Cancer Screening: P ap Smear 2000 HPV Vaccines (1 - 3-dose SCD M series) 2006 Cholesterol Screening (Lipid Panel) 11/08/2023 HIV Screening 11/08/2023 Hepatitis C Screening 11/08/2023 Social Influencers of Health Screening 11/08/2023 Diabetes: Annual Urine Albumin-Creatinine Ratio (uACR) 11/29/2023 Diabetes: Blood Sugar Contro l Test (HGBA1C) 11/29/2023 Depression Screening 10/14/2024 COVID-19 Vaccine ( - 2024-2 6 season) 2025 Influenza Vaccine (#1) 2025 RSV [...] patient's age to complete this topic Insurance [facility] Care Teams Telephone Answerer Relationship Specialty Start Date End Date Solomon Suazo MD [address], [place] PCP - General 12/13/10
--- OUTSIDE RECORDS SUMMARY | 2025-08-26 15:19 | XMS_ITS | Patient Health Record ---
Author Organization [facility] Address [address] [place] [address] Care Team Providers Care Pin Sticker Name Role Phone Eric Guerrero Primary Care Provider UnavailJj Torre Unavailable [phone] Allergies Allergen (clinical drug ingredient) Drug/Non Drug Allergy documented on EMR Reaction Allergy Type Onset Date Status Penicillin Unknown Drug Allergy Active sulfamethoxazole / trimethoprim Bactrim Unknown Drug Allergy Active Reason For Referral No Information Medications Medication SIG (Take, Route, Frequency, Duration) Notes Start Date End Date Status Fluconazole 200 MG 1 tablet Orally; Duration: 10 day(s) 05/20/2025 Active HumaLOG 100 UNIT/ML as directed Subcutaneous 05/20 Active Allergy (Cetirizine) 10 MG 1 tablet Oral ly Once a day; Duration: 30 day(s) 05/20/2025 Active Cholestyramine 4 GM/DOSE Use anywhere fr om 1/4 of a scoop to 1 scoop mixed in 8 ounces of water or orange juice Orally Once or Twice a day for diarrhea; Duration: 30 days 05/23/2025 Active Acyclovir 200 MG 1 capsule Orally Thr ee times a day; Duration: 10 day(s) 05/20/2025 Active Immunizations Vaccine Route [...] Status Risk Notes Problem Colon cancer screening (797694512) Colon cancer screening (Z12.11) Active confirmed Problem Irritable bowel syndrome with diarrhea (594960121) Irritable bowel syndrome with diarrhea (K58.0) Active confirmed Vital Signs Temperature 98.9 degrees Fahrenheit 05/20/2025 Blood pressure diastolic 01 mm Hg 05/20/2025 Height 64.5 in 05/20/2025 Blood pressure systolic 001 mm Hg 05/20/2025 Weight 166.8 lbs 05/20/2025 BMI 28.19 kg/m2 05/20/2025 Procedures Procedure Date Ordered Date Performed Result Body Sit e COLONOSCOPY 05/20/2025 N/A Encounters Encounter Location Date Provider Diagnosis [facility] [address] [place] [phone] 05/20/2025 Jj Og Colon cancer screening Z12.11 and Irritable bowel syndrome with diarrhea K58.0 [facility] [address] [place] [phone] 05/20/2025 Jj Og [facility] [address] [place] [phone] 08/17/2025 Jj Og Assessments Encounter Date Diagnosis (ICD [...] see Dr. Diana from Infectious Disease at [facility] Overall, Kamille appears well. Given her age [...] Test Test Name Order Date COLONOSCOPY 05/20/2025 Insurance Providers Payer Name Payer Address Payer Phone Subscriber Number Group Number Insured Name Patient Relationship to Insured Coverage Start Date Coverage End Date [facility] [address] [place] [address] [id number] MARIOKAMILLE Calvo Self - patient is the insured 5 Medical (General) History Medical History History ICD Code IDDM--has a pump Urinary incontinence Irritable bowel syndrome Herpes esophagitis in EGD 2010 with me-- I sent her to see an ID specialist Denies [place],CVA,Lung disease,renal disease Negative colonoscopy in 2010 with me Mast cell activation syndrome Surgical History Surgery Date(Month/Year) right oopherectomy 2018 2008 [facility] 2004 tonsilectomy 1993
== END 2025-08-26 13:09 | disposition home or self-care (01) ==
PROVIDERS: PCP Family Medicine; Visit Provider Family Medicine
DX: R00.2 Palpitations (principal); F41.8 Other specified anxiety disorders

== ENCOUNTER → 2025-08-26 12:04 | Outpatient (BNVA) | payer SELFPAY | PROVIDERS: PCP Family Medicine; Visit Provider Family Medicine | DX: R00.2 Palpitations (principal); F41.8 Other specified anxiety disorders | CPT/HCPCS: 99212 ==

== ENCOUNTER 2025-09-14 12:59 | Outpatient (AMB) | payer SELFPAY ==
--- NOTE | 2025-09-14 13:03 | MHC.OFFVIS ---
Vital Signs 09/14/25 13:04 Height 5 ft 4.5 in Weight 154 lb 5.177 oz BMI 26.1 BP 116/74 Blood Pressure Location Lt brachial Position Sitting Pulse 66 Intake Visit Reasons: f/up echo, holter, ett/ tilt Intake Note: Follow-up after echo, holter, ett, and tilt table feeling better still has some sob and palpitations Green Coffee Blender Required: No Allergies Sulfa (Sulfonamide Antibiotics) (SULFA (SULFONAMIDE ANTIBIOTICS)) Allergy (Intermediate, Verified 08/26/25 12:24) ITCHING sulfamethoxazole (From Bactrim) Allergy (Intermediate, Verified 08/26/25 12:24) Itching trimethoprim (From Bactrim) Allergy (Intermediate, Verified 08/26/25 12:24) Itching Penicillins (PCN) Allergy (Mild, Verified 08/26/25 12:24) HIVES Medication List - Last Reconciled 09/14/25 by Callie Durham, PROJECT GEOLOGIST-C acyclovir 200 mg PO TID albuterol sulfate 90 mcg/actuation (Ventolin HFA) 2 puffs inhalation Q4-6H PRN 30 days cetirizine (All Day Allergy (cetirizine)) 10 mg PO DAILY PRN 90 days clonidine HCl 0.1 mg PO DAILY PRN 30 days cromolyn mg PO fluconazole 150 mg PO QWEEK insulin lispro (Humalog U-100 Insulin) 1 sliding scale dose subcut USEASDIRECTD metoprolol succinate ER 25 mg PO DAILY sertraline 50 mg PO DAILY 90 days tiotropium bromide 1.25 mcg/actuation (Spiriva Respimat) 2 puffs inhalation QAM HPI HPI f/up echo, holter, ett/ tilt: Details: The patient is a 44 year old individual presenting for follow-up of symptoms including heart palpitations, lightheadedness, and shortness of breath. The patient's past medical history includes diabetes, asthma, and mast cell activation syndrome. An extensive cardiac evaluation has been performed, which included a 3-day Holter monitor on 06/11/2025 showing normal sinus rhythm and sinus tachycardia, with symptoms correlating to sinus rhythm. An exercise stress test on the same day was notable for lightheadedness and shortness of breath after 9.5 minutes of exercise, but with no arrhythmias or ischemic EKG changes. An echocardiogram on 06/25/2025 was normal, and a 30-day cardiac event monitor started 07/09/2025 showed sinus rhythm, rare ventricular ectopy, and symptoms correlating with sinus rhythm and tachycardia, with palpitation correlating with a ventricular couplet. A tilt table test on 09/07/2025 was negative for an orthostatic response, although the patient's heart rate did increase with the tilt. The patient was started on metoprolol XL 25 mg daily for these symptoms and reports feeling better, noting the tachycardia has improved but is still present. The patient's resting heart rate is now lower, sometimes in the 60s at night, but still climbs to 125-130 bpm with activity throughout the day, especially with fatigue. The patient also experiences a pounding sensation as the heart rate slows down after exertion. The patient reports that before starting metoprolol, symptoms were so severe that the patient could not sustain a full workday or daily life activities, which has now improved. The patient is following advice from a sample supervisor to drink 4 liters of fluid per day, including two liters containing salt, but struggles to maintain this intake during long workdays. The patient's daily life involves a high level of physical activity from work and caring for many dogs, which serves as exercise. [facility] Medical History Mast cell activation syndrome Type 1 diabetes mellitus Depression Anxiety Rash Memory loss Neuropathy Incontinence Esophageal ulcer GERD (gastroesophageal reflux disease) IBS (irritable bowel syndrome) Arthritis Palpitations Asthma Surgical History H/O colonoscopy History of esophagogastroduodenoscopy (EGD) History of right oophorectomy Hx of section S/P cholecystectomy S/P tonsillectomy Family History Brother Substance abuse in family High blood pressure Paternal Uncle Substance abuse in family Maternal Grandmother Substance abuse in family High blood pressure Diabetes Thyroid disorder Mother High blood pressure Diabetes Thyroid disorder Father High blood pressure Alcoholism Paternal Grandfather High blood pressure Thyroid disorder Paternal Grandfather High blood pressure Thyroid disorder Unknown Diabetes Alcoholism Paternal Grandmother Alcoholism Maternal Grandfather Alcoholism Social History Housing: House Patient Tobacco Use Status: Never used Tobacco e-Cigarette/Vaping Use: Never Used Second Hand Smoke Exposure: No service: No Current occupational status: employed 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 Cognitive needs: No Hearing needs: No Vision needs: Yes (Patient wears glasses) Review of Systems Const All systems reviewed & are unremarkable except as noted in HPI and below Denies chills, Denies fatigue, Denies fever(s), Denies frequent falls, Denies weakness, Denies weight gain and Denies weight loss ENT Denies dizziness Card Denies chest pain, Reports rapid heart rate, Denies leg edema, Denies lightheadedness, Denies palpitations, Denies dyspnea, Denies dyspnea on exertion, Denies orthopnea and Denies other (loss of consciousness) Resp Denies cough, Denies dyspnea and Denies dyspnea on exertion GI Denies hematochezia and Denies change in stool character Musc Denies abnormal gait, Denies muscle weakness, Denies numbness, Denies radiating pain into limb and Denies tingling Neuro Denies abnormal gait, Denies dizziness, Denies frequent falls, Denies numbness, Denies tingling and Denies weakness Endo Denies fatigue and Denies palpitations Physical Exam Vital Signs: BMI result Body Mass Index 26.1 Const General: cooperative, healthy appearing, comfortable and no acute distress Orientation/consciousness: patient oriented x3 Neck Neck: Yes normal visual inspection Resp Effort & Inspection: normal respiratory effort Auscultation: clear to auscultation bilaterally, no rales, no rhonchi and no wheezes Cardio Rate: regular rate Rhythm: regular rhythm Heart sounds: S1 normal heart sound present, S2 normal heart sound present, no gallops, no murmurs and no rubs Neuro General: patient oriented x3 Extrem General: Yes normal to inspection and No no pedal edema Psych Appearance: grossly normal Mental Status: mental status grossly normal Speech and movement: Normal speech and movement present Assessment & Plan Assessment & Plan (1) Palpitations: Code(s): R00.2 - Palpitations Category: Medical Plan: Reported heart palpitations, rapid heartbeat at inappropriate times. Cardiac evaluation without significant findings. Max heart rate on recent Cardiac event monitor was 156 which according to her was while doing normal day time activities. She has been on metoprolol XL 25 mg daily and reports some improvement in the heart palpitations and lightheadedness. At this time will further increase metoprolol XL to 50 mg daily. Instructed on home blood pressure and pulse checks calling if systolic less than 100 or resting pulse rates less than 50. Maintain good hydration. Cardiology follow-up 4 months, sooner if needed. (2) Shortness of breath: Code(s): R06.02 - Shortness of breath Category: Medical Plan: Newer shortness of breath with exertion in the last year. Echocardiogram was normal. Exercise stress test showed no ischemia. (3) Mast cell activation syndrome: Code(s): D89.40 - Mast cell activation, unspecified Category: Medical Plan: Recent diagnosis. Followed by another provider. (4) Type 1 diabetes: Code(s): E10.9 - Type 1 diabetes mellitus without complications Category: Medical Plan: Diagnosed age 9. Has a insulin pump. Reports history of variable sugars. Plan I informed the patient that the comprehensive cardiac workup, including a Holter monitor, stress test, echocardiogram, and event monitor, was reassuring. I explained that the patient's heart is structurally normal, with no evidence of blocked arteries, valve disorders, or other abnormalities, and that the symptoms are not from a primary heart problem. I discussed that the diagnosis is most likely inappropriate sinus tachycardia, a form of dysautonomia, which is a disorder of the body's automatic regulatory system. I noted this condition can be associated with other medical histories the patient has, such as diabetes and mast cell activation syndrome. We reviewed the treatment plan, noting the partial success with the current low dose of metoprolol 25 mg. I recommended increasing the dose to 50 mg XL daily to see if we can achieve further symptom improvement. I advised the patient to give the new dose a week or two to adjust and to monitor for side effects like low blood pressure (systolic < 100) or low resting heart rate (< 50 bpm), and to contact my office or revert to the 25 mg dose if issues arise. We scheduled a follow-up in four months. Medications: New metoprolol succinate ER dose increased 50 mg PO DAILY 30 tabs 4RF Discontinued metoprolol succinate ER Discontinued Reason: Doctor's Order 25 mg PO DAILY 30 tabs 2RF Patient Instructions: - Increase your metoprolol XL dose to 50 mg each morning. - A new prescription for 50 mg tablets will be sent to your pharmacy. - Continue your efforts to stay hydrated by drinking plenty of fluids and including salt as you have been doing. - Call my office or send a portal message if your top blood pressure number is consistently below 100 or your resting heart rate while awake is below 50. - If the new dose causes any issues, you can go back to taking the 25 mg dose. - We will have a follow-up visit in four months to see how you are doing. Patient was informed and verbally consented to the use of an ambient scribe for clinic note documentation during this visit. Visit time spent on chart review, interview, assessment, orders, documentation. Coding Level of Care Code Est Pt Level 4 (99210) Complex visit Add On G2211 Diagnoses Palpitations R00.2 Shortness of breath R06.02 Mast cell activation syndrome D89.40 Type 1 diabetes E10.9 Time Spent (min) 28
[2025-09-14 13:04] VITALS: BP 116/74; PULSE 66; BMI 26.1
--- OUTSIDE RECORDS SUMMARY | 2025-09-14 14:52 | XMS_ITS | Clinical Summary ---
Author Organization [facility] Address [address] [place] [address] Phone Care Team Providers Care Film Writer Name Role Phone Eric Guerrero MD Primary Care Provider [phone] Encounters Date Type Department Care Team Description 09/07/2025 12:41 PM EST - 09/07/2025 11:59 PM EST Hospital Encounter [facility] Xray [address] [place] [address] Near syncope Discharge Disposition: Home or Self Care from Last 3 Months Surgical History Surgery Date Site/Laterality Comments CHOLECYSTECTOMY [...] on file Obstetrics History Plan of Treatment Health Maintenance Due Date Last Done Comments Breast Cancer Screening 1979 Colorectal Cancer Screening: Colonoscopy 1979 Diabetes: Annual Foot Exam 1989 Diabetes: Annual Retina Eye Exam 1989 Hepatitis B Vaccines (1 of 3 - 19+ 3-dose series) 1998 Cervical Cancer Screening: P ap Smear 2000 HPV Vaccines (1 - 3-dose SCD M series) 2006 HIV Screening 11/08/2023 Hepatitis C Screening 11/08/2023 Social Influencers of Health Screening 11/08/2023 Diabetes: Annual Urine Albumin-Creatinine Ratio (uACR) 06/25/2024 06/25/2023 Diabetes: Annual GFR (Glomerular Filtration Rate) 06/25/2024 06/25/2023 Depression Screening 10/14/2024 COVID-19 Vaccine (1 - 2024-2 6 season) 2025 Influenza Vaccine (#1) 2025 2, 09/09/2011, 07/31/2010 Diabetes: Blood Sugar Contro l Test (HGBA1C) 01/02/2026 07/05/2025 DTaP,Tdap,and Td Vaccines (2 - Td or Tdap) 11/01/2026 11/01/2016 Cholesterol Screening (Lipid Panel) 06/25/2028 06/25/2023 RSV Immunization Adult Patients (1 - 1-dose 75+ series) 2054 HIB [...] age to complete this topic Pneumococcal Vaccine: Pediatrics (0 to 5 Years) and At-Risk Patients (6 to 49 Years) Aged Out No longer eligible b ased on patient's age to complete this topic RSV Immunization Patients Under 20 months Aged Out No longer eligible b ased on patient's age to complete this topic Varicella Vaccines Aged Out No longer eligible based on patient's age to complete this topic Procedures Procedure Name Priority Date/Time Associated Diagnosis Comments TILT TABLE Routine 09/07/2025 1:33 PM EST Near syncope from Last 3 Months Results * Tilt table (09/07/2025 1:33 PM EST) Anatomical Region Laterality Modality Radiographic Kelli ging Narrative 09/07/2025 1:53 PM EST No evidence of POTS Tilt Table The patient was brought to lab in fasting state. Patient lied supine for 5 minutes for equilibrium. Baseline ECG showed normal sinus rhythm. Baseline supine minimum BP: 145/86 mmHg Baseline supine minimum HR: 83 bpm Patient tilted to 70 degrees. Tilt maintained for 20 minutes. Minimum BP during tilt: 152/80 mmHg Maximum BP during tilt: 204/93 mmHg Minimum heart rate during tilt: 72 bpm Maximum heart rate during tilt: 92 bpm Rhythm during tilt: normal sinus rhythm There was a clear orthostatic response not noted. Patient experienced a physiologic HR increase with tilt. Premonitory symptoms were reproduced. dots in vision and head pressure. Feels like heart is pounding in her back with HR 82, NSR. She did take her Metoprolol today Conclusion: Negative tilt test. Callie Durham NP [facility] PROCEDURES Final Result from Last 3 Months Insurance MEDICAID - [place] Care Teams Film Writer Relationship Specialty Start Date End Date Eric Guerrero MD [address] [place] [address] Dr Jailyn [place] PCP - General Family Medicine 09/07/25
--- OUTSIDE RECORDS SUMMARY | 2025-09-14 14:52 | XMS_ITS | Clinical Summary ---
Author Organization [facility] Address [address] [place] [address] Phone Care Team Providers Care Senior Ios Developer Name Role Phone Elba Bailey MD Unavailable [phone] Eric Guerrero MD Primary Care Provider [...] ORAL Take by mouth. With l-thinne Active DEXCOM G7 SENSOR DeviIndications:Ty pe 1 diabetes mellitus with diabetic mononeuropathy Apply sensor as directed every 10 days 3 each 11 20 24 Active cholestyramine (QUESTRAN) 4 gram powder [...] times a day. 05/10/20 25 Active vit H-nttvadhnm-qcvzdh v,citrus (QUERCETIN COMPLEX) 625 mg Tab Take 1 tablet by mouth 2 (two) times a day. 07/05/20 25 Active insulin lispro (HUMALOG U-100 INSULIN) 100 unit/mL injection vialIndications:Ty pe 1 diabetes mellitus with diabetic mononeuropathy INJECT UP TO 100 UNITS A DAY DIRECTED via insulin pump. E10.40 30 mL 12 08/19/20 25 Active HUMALOG U-100 INSULIN 100 unit/mL injection vialIndications:Ty pe 1 diabetes mellitus with diabetic mononeuropathy INJECT UP TO 100 UNITS A DAY DIRECTED VIA INSULIN PUMP. E10.40 30 mL 12 08/04/20 24 025 Discontin ued(Reord er) Active Problems Problem Noted Date Diagnosed Date [...] EDT): Kamille is doing well on the iLet insulin pump system, her TIR is improved and TAR2 frequency is much lower, insulin requirement is similar to previous but should decrease as her underlying insulin resistance issues Advised to continue to keep an eye on patterns, she is in touch with Sandra Orlando from clinical care team at [facility] regarding dosing considerations Kamille is scheduled [...] insulin pump, she has information on the [facility] insulin pump system at home and will [...] Assessment & Plan (11/13/2023 4:04 PM EST): Kaimlle insulin pump setting (changes in bold) Time [...] meals should allow for less prandial rise, Kamille is also advised to bolus insulin prior [...] pack, also CGM reports to share with [employer] for insurance approval of CGM supplies Assessment [...] Kamille remains in close contact with clinical retail team member from [facility] with questions Kamille is in midst [...] in 6 months to follow up with nm Assessment & Plan (01/04/2025 2:28 PM EDT): [...] specifically discussed the possible benefits of the [facility] insulin pump as noted Kamille has tried [...] Ronel Dai and in 6 months with nm Assessment & Plan (12/21/2022 1:32 PM EST): [...] this, advised to also discuss with her press catcher Kamille will return in 3 months with [...] carbs, this will help prandial glucose control Kamilel has upcoming follow up appointments already booked [...] or concerns, will return to meet with special education paraeducator in 3 months Assessment & Plan (03/17/2020 [...] insulin delivery as hybrid closed loop systems, [employer] and [employer], she is encouraged to look into these [...] no redness, no bleeding. Plan: Procedure Codes: 76979 Glucose monitoring, cont Assessment & Plan (04/01/2019 [...] no redness, no bleeding. Plan: Procedure Codes: 83684 Glucose monitoring, cont Assessment & Plan (09/30/2018 [...] Encounters Date Type Department Care Team Description 08/18/2025 Refill [facility] [address] [place] [address] [place] [address] Elba Bailey MD Medication Refill 07/05/2025 11:40 AM EDT Office Visit [facility] [address] [place] [address] [place] [address] Elba Bailey MD Type 1 diabetes mellitus [...] Description 01/10/2026 11:30 AM EDT Office Visit [facility] [address] [place] [address] [place] [address] Elba Bailey MD [address] [facility] [place] [address] Health Maintenance Due Date Last Done Comments [...] Hemoglobin A1c 7.7(A) 4.2 - 5.6 % [facility] Other 07/05/2025 12:0 9 PM EDT us Elba Bailey MD LAB POCT ENTER/EDIT ORDERABLES Final Result Performing Organization Address [facility] Co de Phone Number [address] [address], [facility] * Microalbumin/creatinine ratio, random urine (06/25/2023 12:57 PM EDT) Pathologist [facility] URINE MICROALBUMIN <1.2 0 - 2.3 mg/dL [facility] URINE CREATININE 62 mg/dL [facility] MICROALB/CRE RATIO NOT CALCULATED 0 - 20 mg/g Cre [facility] Comment:due to Microalbumin <1.2 Urine (Urine) 06/25/2023 12: 57 PM EDT 06/25/2023 12:59 PM EDT Elba Bailey MD LAB URINE ORDERABLES Final Resu lt Performing Organization Address [facility] Co de Phone Number [address] [address] * (ABNORMAL) Lipid panel (06/25/2023 12:54 PM EDT) Pathologist [facility] HDL 71 mg/dL [facility] Comment: Interpretation <40 mg/dL: Low HDL cholesterol (major risk factor for CHD) Greater than or equal to 60 mg/dL: High HDL cholesterol ( negative risk factor for CHD) HDL - cholesterol is affected by a number of factors, e.g. smoking, excerise, hormones, sex and age. CHOLESTEROL 214 0 - 240 mg/dL [facility] TRIGLYCERIDES 64 30 - 160 mg/dL [facility] LDL 130(H) 50 - 129 mg/dL [facility] Comment: LDL levels in terms of risk for coronary heart disease: <100 mg/dL: Optimal 100-129 mg/dL: Near or above optimal 130-159 mg/dL: Borderline high 160-189 mg/dL: High >190 mg/dL: Very High CARDIAC RISK RATIO 3.0(L) 3.3 - 4.4 [facility] Blood 06/25/2023 12:5 4 PM EDT 06/25/2023 12:56 PM EDT us Elba Bailey MD LAB BLOOD BKR ORDERABLES Final Result [facility] [address] [place] [address] * DIABETES EYE EXAM FOR RESULT ENTRY ONLY (03/27/2023) EYE EXAM SEE SCANNED REPORT us Historical Provider HEALTH MAINTENANCE Final Result from Last 3 Months or Most Recently Relevant to Health Maintenance Insurance [facility] PCC Care Teams Senior Ios Developer Relationship Specialty Start Date End Date Eric Guerrero MD [address] [facility], [address] [place] [phone] PCP - General Family Medicine 12/29/24 Elba Bailey MD [address] [place] [phone] [email or web address] Historical LMR Provider 07/29/17 Additional Source Comments The information contained in this document represents components of the legal health record. It is not the complete legal health record.[facility]
--- OUTSIDE RECORDS SUMMARY | 2025-09-14 14:52 | XMS_ITS | Encounter Summary ---
Author Organization [facility] Address [address] [place] [address] Phone Care Team Providers Care Server Programmer Name Role Phone Amaya Hatfield MD Unavailable Jj Baldwin DO Unavailable [phone] Elba Bailey MD Unavailable Isabel Baker MD Unavailable [phone] Sena Nagy MD Unavailable Jj Baldwin DO Primary Care Provider [phone] Jj Baldwin DO Primary Care Provider [phone] Alexi Nunes MD Primary Care Provide r Pcp, Unknown Primary Care Provider Unavailabl e Pcp, Unknown Primary Care Provider Unavailabl e Eric Guerrero MD Primary Care Provider Reason for Referral * Physical Therapy (Routine) - Closed Specialty Diagnoses / Procedures Referred By Kayla hill Referred To Contact Physical Therapy Diagnoses Encounter for rehabilitation Jj Baldwin DO Phone: tel: fax: [email or web address] [address] [address] Phone: tel: Referral ID Status Reason Start Date Expiration Date Visits Re quested Visits Authorized [id number] Closed 01/23/2018 01/23/2019 12 12 Encounter Details Date Type Department Care Team (Latest Contact Info) Description 01/21/2018 Transcribe Orders [facility] [address] [place] [phone] Jj Baldwin DO [address] [place] [address] [email or web address] Encounter for rehabilitation (Primary Dx) [...] Description 01/10/2026 11:30 AM EDT Office Visit [facility] [address] [place] [address] Elba Bailey MD 22 [facility], [address] [place] [phone] Scheduled Referrals Name Type Priority Associated Diagnoses Orde r Schedule Ambulatory referral to [facility] Physical Therapy Outpatient Referral Routine Encounter for rehabilitation Ordered: 01/21/2018 documented as of this encounter Visit Diagnoses Diagnosis Encounter for rehabilitation- Primary documented in this encounter Care Teams Server Programmer Relationship Specialty Start Date End Date Jj Baldwin DO [address] [place] [address] PCP - General 10/17/17 02/03/18 Jj Baldwin DO [address] [place] [address] [email or web address] PCP - General Family Medicine 02/04/18 09/21/18 Alexi Nunes MD [address] [address] PCP - General Family Medicine 09/22/18 06/24/23 Pcp, Unknown PCP - General 06/25/23 09/24/23 Pcp, Unknown PCP - General 09/25/23 12/28/24 Eric Guerrero MD PCP - General Family Medicine 12/29/24 Amaya Hatfield MD [address] [place] [address] [email or web address] Historical LMR Provider 07/29/17 10/21/21 Jj Baldwin DO [address] [place] [address] [email or web address] Historical LMR Provider 07/29/17 10/21/21 Elba Bailey MD [address] [place] [phone] [email or web address] Historical LMR Provider 07/29/17 Isabel Baker MD [address] [place] [address] Historical LMR Provider 07/29/17 [place] [address] Historical LMR Provider 07/29/17 10/21/21 documented as of this encounter Additional Source Comments The information contained in this document represents components of the legal health record. It is not the complete legal health record.[facility]
--- OUTSIDE RECORDS SUMMARY | 2025-09-14 14:52 | XMS_ITS | Encounter Summary ---
Author Organization [facility] Address [address] [facility] [address] [place] [address] Phone Care Team Providers Care Gold Leaf Laborer Name Role Phone Amaya Hatfield MD Unavailable Jj Baldwin DO Unavailable [phone] Elba Bailey MD Unavailable [phone] Isabel Baker MD Unavailable [phone] Sena Nagy MD Unavailable Alexi Nunes [...] rehabilitation System, Provider Not In, [facility] [address] [address] Phone: tel: Referral ID Status Reason Start Date Expiration Date Visits Re quested Visits Authorized [id number] Closed 10/21/2018 10/21/2019 10 10 Encounter Details Date Type Department Care Team (Latest Contact Info) Description 10/08/2018 Transcribe Orders [facility] Rehabilitation [address] [address] Alexi Nunes MD [address] [address] Encounter for rehabilitation (Primary Dx) Social History [...] Upcoming Encounters Date Type Department Care Team ([facility] st Contact Info) Description 01/10/2026 11:30 AM EDT Office Visit [facility] [address] [place] [address] Elba Bailey MD [address] [address] [email or web address] Scheduled Referrals Name Type Priority Associated Diagnoses Orde r Schedule Ambulatory referral to [facility] Physical Therapy Outpatient Referral Routine Encounter for rehabilitation Ordered: 10/08/2018 documented as of this encounter Visit Diagnoses Diagnosis Encounter for rehabilitation- Primary documented in this encounter Care Teams Gold Leaf Laborer Relationship Specialty Start Date End Date Alexi Nunes MD [address] [address] PCP - General Family Medicine 09/22/18 06/24/23 Pcp, Unknown PCP - General 06/25/23 09/24/23 Pcp, Unknown PCP - General 09/25/23 12/28/24 Eric Guerrero MD PCP - General Family Medicine 12/29/24 Amaya Hatfield MD [address] [address] [email or web address] Historical LMR Provider 07/29/17 10/21/21 Jj Baldwin DO [address] [place] [address] [email or web address] Historical LMR Provider 07/29/17 10/21/21 Elba Bailey MD 22 [facility], [address] [place] [address] [email or web address] Historical LMR Provider 07/29/17 Isabel Baker MD [address] [place] [address] Historical LMR Provider 07/29/17 2 [place] [address] [email or web address] Historical LMR Provider 07/29/17 10/21/21 documented as of this encounter Additional Source Comments The information contained in this document represents components of the legal health record. It is not the complete legal health record.[facility]
--- OUTSIDE RECORDS SUMMARY | 2025-09-14 14:52 | XMS_ITS | Encounter Summary ---
Author Organization [facility] Address [address] [facility] [address] [place] [address] Phone Care Team Providers Care Access Tech Name Role Phone Amaya Hatfield MD Unavailable Jj Baldwin DO Unavailable [phone] Elba Bailey MD Unavailable [phone] Isabel Baker MD Unavailable [phone] Sena Nagy MD Unavailable Alexi Nunes MD Primary Care Provide r Pcp, Unknown Primary Care Provider Unavailabl e Pcp, Unknown Primary Care Provider Unavailabl e Eric Guerrero MD Primary Care Provider Encounter Details Date Type Department Care Team (Latest Contact Info) Description 11/15/2020 Transcribe Orders Virtual Department 30 [place] [address] Alexi Nunes MD [address] [facility] [place] [address] Other specified soft tissue disorders (Primary Dx) [...] Description 01/10/2026 11:30 AM EDT Office Visit [facility] [address] [place] [address] Elba Bailey MD 22 [facility], 1st [place] [address] documented as of this encounter Results * [...] disorders documented in this encounter Care Teams Access Tech Relationship Specialty Start Date End Date Alexi Nunes MD [address] [facility] [address] [place] [address] PCP - General Family Medicine 09/22/18 06/24/23 Pcp, Unknown PCP - General 06/25/23 09/24/23 Pcp, Unknown PCP - General 09/25/23 12/28/24 Eric Guerrero MD PCP - General Family Medicine 12/29/24 Amaya Hatfield MD [address] [address] [email or web address] Historical LMR Provider 07/29/17 10/21/21 Jj Baldwin DO 22 [place] [address] [email or web address] Historical LMR Provider 07/29/17 10/21/21 Elba Bailey MD [address] [address] [email or web address] Historical LMR Provider 07/29/17 Isabel Baker MD [address] [place] [address] Historical LMR Provider 07/29/17 2 [place] [address] [email or web address] Historical LMR Provider 07/29/17 10/21/21 documented as of this encounter Additional Source Comments The information contained in this document represents components of the legal health record. It is not the complete legal health record.[facility]
--- OUTSIDE RECORDS SUMMARY | 2025-09-14 14:52 | XMS_ITS | Encounter Summary ---
Author Organization [facility] Address [address] [facility] [address] [place] [address] Phone Care Team Providers Care Navy Senior Officer Name Role Phone Elba Bailey MD Unavailable [phone] Eric Guerrero MD Primary Care Provider Reason for Visit * Reason Comments Medication Refill Encounter Details Date Type Department Care Team (Late st Contact Info) Description 08/18/2025 Refill [facility] 22 [place] [address] Elba Bailey MD 22 [facility], 1st [place] [address] [email or web address] Medication Refill Social History Tobacco Use Types Packs/Day Years [...] AM EST documented as of this encounter Progress Notes * Yumi Mandujano MA - 08/18/2025 12:05 PM EST Rx Care Gap Status - Instructions for Clinical Staff (prescriber discretion applies): > Mismatch review guide > At least one request does not meet full criteria. Specifics below. > No future appt: Please schedule if appropriate. > Labs due: Please remind patient. > Orders needed: Click OPA and Accept to open SmartSet. BMP - Needs order * Lipid panel - Needs order * Urine Microalbumin - Needs order * Visit Info Last visit: 07/05/2025 Elba Bailey MD - Diabetes and Nutrition [facility] > Requested f/u: Not specified Upcoming visit: None ACTIONS TAKEN BY Yumi Mandujano MA - Labs needed - Teed up orders and/or reminded pt. - Visit needed - Scheduled; sent msg to FD; and/or reminded pt. Diabetes Rx Protocol (on Diabetes Registry) - insulin lispro Criteria not met; renew for up to 3 months. Visit in the past 14 months: Yes Clinical criteria: - BMP within past year: No - A1c within past 6 months: Yes - Lipid panel within past year: No (LDL 130 on 06/25/2023) - Urine microalbumin within past year or on FLORIDALMA/ARB: No Lab Results Component Value Date SODIUM 142 06/25/2023 POTASSIUM 4.2 06/25/2023 CHLORIDE 103 06/25/2023 CO2 29 06/25/2023 BUN 14 06/25/2023 CREATININE 0.80 06/25/2023 EGFR 94 06/25/2023 Lab Results Component Value Date Hemoglobin A1c 7.7 (*) 07/05/2025 HEMOGLOBIN A1C 7.8 (H) 09/25/2023 MICROALB/CRE RATIO NOT CALCULATED 06/25/2023 URINE MICROALBUMIN <1.2 06/25/2023 Lab Results Component Value Date LDL 130 (H) 06/25/2023 HDL 71 06/25/2023 CARDIAC RISK RATIO 3.0 (L) 06/25/2023 TRIGLYCERIDES 64 06/25/2023 CHOLESTEROL 214 06/25/2023 Health Maintenance Labs Due / Due Soon Topic Date Due LIPID PANEL 06/25/2024 URINE MICROALBUMIN/CREATININE RATIO 06/25/2024 documented in this encounter Plan of Treatment Upcoming Encounters Date Type Department Care Team (Late st Contact Info) Description 01/10/2026 11:30 AM EDT Office Visit [facility] [address] [place] [address] Elba Bailey MD [address] [place] [address] [email or web address] documented as of this encounter Visit Diagnoses Diagnosis Type 1 diabetes mellitus with diabetic mononeuropathy documented in this encounter Care Teams Navy Senior Officer Relationship Specialty Start Date End Date Eric Guerrero MD [address] [place] [address] PCP - General Family Medicine 12/29/24 Elba Bailey MD [address] [place] [address] [email or web address] Historical LMR Provider 07/29/17 documented as of this encounter Additional Source Comments The information contained in this document represents components of the legal health record. It is not the complete legal health record.[facility]
== END 2025-09-14 13:41 | disposition home or self-care (01) ==
PROVIDERS: PCP Family Medicine; Visit Provider Nurse Practitioner Family
DX: R00.2 Palpitations (principal); R06.02 Shortness of breath; D89.40 Mast cell activation, unspecified; E10.9 Type 1 diabetes mellitus without complications
CPT/HCPCS: 99214; G2211

== ENCOUNTER → 2025-09-14 12:59 | Outpatient (BNVA) | payer SELFPAY | PROVIDERS: PCP Family Medicine; Visit Provider Nurse Practitioner Family | DX: E10.9 Type 1 diabetes mellitus without complications (principal); R00.2 Palpitations; R06.02 Shortness of breath; D89.40 Mast cell activation, unspecified; Z79.899 Other long term (current) drug therapy | CPT/HCPCS: 99212 ==

== ENCOUNTER 2025-10-05 09:50 | Outpatient (AMB) | payer SELFPAY ==
--- NOTE | 2025-10-05 09:53 | MHC.PC.OV ---
Vital Signs 10/05/25 09:58 Height 5 ft 4.5 in Weight 157 lb BMI 26.5 BP 127/73 Blood Pressure Location Lt brachial Position Sitting Respiration 16 Pulse 68 Pulse Source Pulse Oximeter Temp 97.9 F Temp Source Oral Pulse Oximetry (%) 100 Oxygen Delivery Method Room Air Intake Visit Reasons: f/u anxiety, palpitations(self pay) Intake Note: patient here for follo up on anxiety and palpitations Qualitative Field Coordinator Required: No Is last menstrual period known: No Post menopausal: No Patient : No Allergies Sulfa (Sulfonamide Antibiotics) (SULFA (SULFONAMIDE ANTIBIOTICS)) Allergy (Intermediate, Verified 10/05/25 09:57) ITCHING sulfamethoxazole (From Bactrim) Allergy (Intermediate, Verified 10/05/25 09:57) Itching trimethoprim (From Bactrim) Allergy (Intermediate, Verified 10/05/25 09:57) Itching Penicillins (PCN) Allergy (Mild, Verified 10/05/25 09:57) HIVES Medication List - Last Reconciled 10/05/25 by Eric Guerrero MD acyclovir 200 mg PO TID albuterol sulfate 90 mcg/actuation (Ventolin HFA) 2 puffs inhalation Q4-6H PRN 30 days cetirizine (All Day Allergy (cetirizine)) 10 mg PO DAILY PRN 90 days clonidine HCl 0.1 mg PO DAILY PRN 30 days cromolyn mg PO fluconazole 150 mg PO QWEEK insulin lispro (Humalog U-100 Insulin) 1 sliding scale dose subcut USEASDIRECTD metoprolol succinate ER 50 mg PO DAILY sertraline 100 mg PO DAILY 90 days tiotropium bromide 1.25 mcg/actuation (Spiriva Respimat) 2 puffs inhalation QAM Tobacco use date assessed: 10/05/25 Dental Screening Dental Screen Date: 10/05/25 Did you have a dental visit in the last 12 months?: Yes Did you have a dental problem in the last 6 months where you did not have access to dental care?: No Was dental information given to patient?: Patient has dentist HPI f/u anxiety, palpitations(self pay) HPI Details 45 y/o female presents today to f/u anxiety, palpitations. Pt had multiple complaints of palpitations and also SOB/dizziness. Pt was started on metoprolol XL 25 mg daily and reports feeling better, noting tachycardia improved but still present. Had seen Cardiology 09/14/25. They had increased metoprolol to 50mg each morning but pt notes she has been reluctant to increase her metoprolol. PHQ-9 5, TORO-7 6 today. Pt notes sertraline has been helping. Had increased this to 75mg daily which she notes somewhat improves her symptoms. Has not trialed clonidine. Has had therapy before in the past but pt notes she is currently not interested in a therapist. [facility] Medical History Mast cell activation syndrome Type 1 diabetes mellitus Depression Anxiety Rash Memory loss Neuropathy Incontinence Esophageal ulcer GERD (gastroesophageal reflux disease) IBS (irritable bowel syndrome) Arthritis Palpitations Asthma Surgical History H/O colonoscopy History of esophagogastroduodenoscopy (EGD) History of right oophorectomy Hx of section S/P cholecystectomy S/P tonsillectomy Family History Brother Substance abuse in family High blood pressure Paternal Uncle Substance abuse in family Maternal Grandmother Substance abuse in family High blood pressure Diabetes Thyroid disorder Mother High blood pressure Diabetes Thyroid disorder Father High blood pressure Alcoholism Paternal Grandfather High blood pressure Thyroid disorder Paternal Grandfather High blood pressure Thyroid disorder Unknown Diabetes Alcoholism Paternal Grandmother Alcoholism Maternal Grandfather Alcoholism Social History Housing: House Patient Tobacco Use Status: Never used Tobacco e-Cigarette/Vaping Use: Never Used Second Hand Smoke Exposure: No service: No Current occupational status: employed 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 1. Little interest or pleasure in doing things: not at all 2. Feeling down, depressed, or hopeless: not at all 3. Trouble falling or staying asleep, or sleeping too much: several days 4. Feeling tired or having little energy: several days 5. Poor appetite or overeating: several days 6. Feeling bad about yourself - or that you are a failure or have let yourself or your family down: not at all 7. Trouble concentrating on things, such as reading the newspaper or watching television: not at all 8. Moving or speaking so slowly that other people could have noticed. Or the opposite - being so fidgety or restless that you have been moving around a lot more than usual: more than half the days 9. Thoughts that you would be better off or of hurting yourself in some way: not at all Total score: 5 Depression Screening Interpretation: Positive Depression Screening Done: Yes 64074 - PHQ-9 Billing: Yes Source: Developed by Drs. Jj Sanchez, Karlie Perez, Blade Muhammad and colleagues, with an educational kelley from [employer]. Thrive Questionnaire Date Thrive assessed: 01/12/25 I am a: Patient What is your living situation today?: I have a steady place to live Within the past 12 months, did the food you bought not last and you didn't have the money to get more?: Never true Within the past 12 months, did you worry whether your food would run out before you got money to buy more?: Never true Do you have trouble paying for medicines?: No Do you have trouble getting transportation to medical appointments?: No Do you have trouble paying your heating and electricity bill?: No Do you have trouble taking care of your child, family member or friend?: No Do you have trouble with day-to-day activities such as bathing, preparing meals, shopping, managing finances, etc.?: No Are you currently unemployed and looking for a job?: No Are you interested in more education?: Yes Currently or been in a relationship where the following occur: No concerns reported THRIVE Score: 0 TORO-7 AMB Questionnaire TORO-7 Date TORO - 7 assessed: 10/05/25 Feeling nervous, anxious, or on edge: 1 = Several days Not being able to stop or control worryin = Several days Worrying too much about different things: 1 = Several days Trouble relaxin = Not at all Being so restless that it is hard to sit still: 0 = Not at all Becoming easily annoyed or irritable: 2 = More than half the days Feeling afraid as if something awful might happen: 1 = Several days Total TORO-7 score (0-4 normal; 5-9 mild; 10-14 moderate; 15-21 severe): 6 Source: Developed by Drs. Jj Sanchez, Karlie Perez, Blade Muhammad and colleagues, with an educational kelley from [employer]. TORO-7 Assessment Billing TORO-7 Assessment Tool: TORO-7 Assessment 35456 Review of Systems Const Denies chills, Denies fatigue, Denies fever(s), Denies headache(s) and Denies weakness ENT Denies dizziness and Denies headache(s) Card Denies dyspnea Resp Denies cough, Denies dyspnea, Denies wheezing and Denies other (shortness of breath) Musc Denies numbness and Denies tingling Neuro Denies dizziness, Denies headache(s), Denies numbness, Denies tingling and Denies weakness Psych Reports anxiety and Reports depression Endo Denies fatigue Aller/Immun Denies wheezing Physical exam (Primary Care) Vital Signs: Last Vital Signs Temp 97.9 F 10/05/25 09:58 Pulse 68 10/05/25 09:58 Resp 16 10/05/25 09:58 BP 127/73 10/05/25 09:58 Pulse Ox 100 10/05/25 09:58 Oxygen Delivery Method Room Air 10/05/25 09:58 BMI result Body Mass Index 26.5 Tobacco/Smoking Status: Tobacco use Status Tobacco use date assessed 10/05/25 10/05/25 10:03 Patient Tobacco Use Status Never used Tobacco 10/05/25 09:56 e-Cigarette/Vaping Use Never Used 10/05/25 09:56 PHQ-9: PHQ-9 Score PHQ-9: Total score 5 10/05/25 10:12 Depression Screening Interpretation: Positive Thrive Assessment: Date of Thrive Assessment Date Thrive assessed 01/12/25 10/05/25 09:56 Currently or been in a relationship where the following occur: No concerns reported Const General: well developed; No acute distress Nutritional Appearance: well nourished Orientation/consciousness: patient oriented x3 HENMT Head: Yes normocephalic and Yes atraumatic Eyes General: appearance normal, both eyes and all related structures Pupils: Equal, round and reactive pupils present EOM: EOMs intact bilaterally Resp Effort & Inspection: normal respiratory effort Neuro General: patient oriented x3 and gait normal Cranial nerves: Yes Equal, round and reactive pupils present Psych Affect: normal affect Coding Level of Care Code Est Pt Level 4 (38905) Diagnoses Depression with anxiety F41.8 Palpitations R00.2 Additional Codes TORO-7 Assessment Billing - TORO-7 Assessment Tool: TORO-7 Assessment 34517 ([id number]) PHQ-9 - 14163 - PHQ-9 Billing: Yes ([id number]) Assessment & Plan Assessment & Plan (1) Depression with anxiety: Code(s): F41.8 - Other specified anxiety disorders Category: Medical Plan: Mood and symptoms somewhat improved on sertraline 50 mg tablet. She has increased her dose to 75 mg daily. She will continue this for another week and then she can increase to 100 mg daily. She can back down to 75 mg daily if she has any problems with this. We will follow-up in about 3 months. I also encouraged her to get her a therapist and she is not interested in this. I then recommended she try a self help CBT workbook/online work book. Currently seems pre contemplative. Will follow-up in 3 months. She will call me sooner if she needs further help with this. No SI (2) Palpitations: Code(s): R00.2 - Palpitations Category: Medical Plan: Followed by cardiology and this seems better controlled lately. She is still taking metoprolol 25 mg daily and does not think she wants to go up to 50 mg daily as symptoms seem fairly well controlled and she is worried about low heart rate or low blood pressure. As this is fairly well controlled, I recommended she continue the 25 mg daily and let her cardiology specialists know. Follow-up with Cardiology as recommended Medications: Changed From sertraline 50 mg PO DAILY 90 days 90 tabs 3RF To sertraline 100 mg PO DAILY 90 tabs 3RF 90 days
[2025-10-05 09:58] VITALS: BP 127/73; PULSE 68; RESP 16; TEMP 36.6; O2SAT 100; BMI 26.5
--- OUTSIDE RECORDS SUMMARY | 2025-10-05 10:40 | XMS_ITS | Encounter Summary ---
Author Organization [facility] Address [address] [facility] [address] [place] [address] Phone Care Team Providers Care Lime Mixer Name Role Phone Elba Bailey MD Unavailable [phone] Eric Guerrero MD Primary Care Provider Reason for Visit * Reason Comments Medication Refill Encounter Details Date Type Department Care Team (Late st Contact Info) Description 08/18/2025 Refill [facility] 22 [place] [address] Elba Bailey MD 22 [facility], 1st [place] [address] [email or web address] Medication Refill Social History Tobacco Use Types [...] - Diabetes and Nutrition [facility] > Requested f/u: Not specified [...] Description 01/10/2026 11:30 AM EDT Office Visit [facility] [address] [place] [address] Elba Bailey MD [address] [place] [address] [email or web address] documented as of this encounter Visit Diagnoses Diagnosis Type 1 diabetes mellitus with diabetic mononeuropathy documented in this encounter Care Teams Lime Mixer Relationship Specialty Start Date End Date Eric Guerrero MD [address] [place] [address] PCP - General Family Medicine 12/29/24 Elba Bailey MD [address] [place] [address] [email or web address] Historical LMR Provider 07/29/17 documented as of this encounter Additional Source Comments The information contained in this document represents components of the legal health record. It is not the complete legal health record.[facility]
--- OUTSIDE RECORDS SUMMARY | 2025-10-05 10:40 | XMS_ITS | Encounter Summary ---
Author Organization [facility] Address [address] [facility] [address] [place] [address] Phone Care Team Providers Care Principal Web Developer Name Role Phone Amaya Hatfield MD Unavailable Jj Baldwin DO Unavailable [phone] Elba Bailey MD Unavailable [phone] Isabel Baker MD Unavailable [phone] Sena Nagy MD Unavailable [phone] Jj Baldwin DO Primary Care Provider [phone] Jj Baldwin DO Primary Care Provider [phone] Alexi Nunes MD Primary Care Provide r Pcp, Unknown Primary Care Provider Unavailabl e Pcp, Unknown Primary Care Provider Unavailabl e Eric Guerrero MD Primary Care Provider Reason for Referral * Physical Therapy (Routine) - Closed Specialty Diagnoses / Procedures Referred By Kayla hill Referred To Contact Physical Therapy Diagnoses Encounter for rehabilitation Jj Baldwin DO Phone: tel: fax: [email or web address] [address] [address] Phone: tel: Referral ID Status Reason Start Date Expiration Date Visits Re quested Visits Authorized [id number] Closed 01/23/2018 01/23/2019 12 12 Encounter Details Date Type Department Care Team (Latest Contact Info) Description 01/21/2018 Transcribe Orders [facility] [address] [place] [address] Jj Baldwin DO 22 [place] [address] [email or web address] Encounter for rehabilitation (Primary Dx) Social History [...] Description 01/10/2026 11:30 AM EDT Office Visit [facility] 22 [place] [address] Elba Bailey MD 22 [facility], [address] [place] [address] Scheduled Referrals Name Type Priority Associated Diagnoses Orde r Schedule Ambulatory referral to [facility] Physical Therapy Outpatient Referral Routine Encounter for rehabilitation Ordered: 01/21/2018 documented as of this encounter Visit Diagnoses Diagnosis Encounter for rehabilitation- Primary documented in this encounter Care Teams Principal Web Developer Relationship Specialty Start Date End Date Jj Baldwin DO 22 [place] [address] PCP - General 10/17/17 02/03/18 Jj Baldwin DO 22 [place] [address] [email or web address] PCP - General Family Medicine 02/04/18 09/21/18 Alexi Nunes MD [address] [address] PCP - General Family Medicine 09/22/18 06/24/23 Pcp, Unknown PCP - General 06/25/23 09/24/23 Pcp, Unknown PCP - General 09/25/23 12/28/24 Eric Guerrero MD PCP - General Family Medicine 12/29/24 Amaya Hatfield MD [address] [place] [address] [email or web address] Historical LMR Provider 07/29/17 10/21/21 Jj Baldwin DO [address] [place] [email or web address] Historical LMR Provider 07/29/17 10/21/21 Elba Bailey MD [address] [place] [address] [email or web address] Historical LMR Provider 07/29/17 Isabel Baker MD [address] [place] [address] Historical LMR Provider 07/29/17 [place] [address] Historical LMR Provider 07/29/17 10/21/21 documented as of this encounter Additional Source Comments The information contained in this document represents components of the legal health record. It is not the complete legal health record.[facility]
--- OUTSIDE RECORDS SUMMARY | 2025-10-05 10:40 | XMS_ITS | Encounter Summary ---
Author Organization [facility] Address [address] [facility] [address] [place] [address] Phone Care Team Providers Care Plugman Name Role Phone Amaya Hatfield MD Unavailable Jj Baldwin DO Unavailable [phone] Elba Bailey MD Unavailable [phone] Isabel Baker MD Unavailable [phone] Sena Nagy MD Unavailable Alexi Nunes MD Primary Care Provide r Pcp, Unknown Primary Care Provider Unavailabl e Pcp, Unknown Primary Care Provider Unavailabl e Eric Guerrero MD Primary Care Provider Encounter Details Date Type Department Care Team (Latest Contact Info) Description 11/15/2020 Transcribe Orders Virtual Department [address] [place] [address] Alexi Nunes MD [address] [facility] [address] [place] [address] Other specified soft tissue disorders (Primary Dx) [...] Description 01/10/2026 11:30 AM EDT Office Visit [facility] Diabetes [facility] [address] [place] [address] Elba Bailey MD 22 [facility], [address] [place] [address] [email or web address] documented as of this encounter Results * [...] disorders documented in this encounter Care Teams Plugman Relationship Specialty Start Date End Date Alexi Nunes MD [address] [facility] [address] [place] [address] PCP - General Family Medicine 09/22/18 06/24/23 Pcp, Unknown PCP - General 06/25/23 09/24/23 Pcp, Unknown PCP - General 09/25/23 12/28/24 Eric Guerrero MD PCP - General Family Medicine 12/29/24 Amaya Hatfield MD [address] [address] [email or web address] Historical LMR Provider 07/29/17 10/21/21 Jj Baldwin DO 22 [place] [address] [email or web address] Historical LMR Provider 07/29/17 10/21/21 Elba Bailey MD [address] [address] [email or web address] Historical LMR Provider 07/29/17 Isabel Baker MD [address] [place] [address] Historical LMR Provider 07/29/17 2 [place] [address] [email or web address] Historical LMR Provider 07/29/17 10/21/21 documented as of this encounter Additional Source Comments The information contained in this document represents components of the legal health record. It is not the complete legal health record.[facility]
--- OUTSIDE RECORDS SUMMARY | 2025-10-05 10:40 | XMS_ITS | Encounter Summary ---
Author Organization [facility] Address [address] [facility] [address] [place] [address] Phone Care Team Providers Care Burr Mill Operator Name Role Phone Amaya Hatfield MD Unavailable Jj Baldwin DO Unavailable [phone] Elba Bailey MD Unavailable Isabel Baker MD Unavailable [phone] Sena Nagy MD Unavailable Alexi Nunes MD Primary Care Provide r Pcp, Unknown Primary Care Provider Unavailabl e Pcp, Unknown Primary Care Provider Unavailabl e Eric Guerrero MD Primary Care Provider Reason for Referral * Physical Therapy (Routine) - Closed Specialty Diagnoses / Procedures Referred By Kayla hill Referred To Contact Physical Therapy Diagnoses Encounter for rehabilitation System, Provider Not In, PhD [address] [address] Phone: tel: Referral ID Status Reason Start Date Expiration Date Visits Re quested Visits Authorized [id number] Closed 10/21/2018 10/21/2019 10 10 Encounter Details Date Type Department Care Team (Latest Contact Info) Description 10/08/2018 Transcribe Orders [facility] Physical Therapy [address] [address] Alexi Nunes MD [address] [address] Encounter for rehabilitation (Primary Dx) Social History [...] Upcoming Encounters Date Type Department Care Team ([facility] st Contact Info) Description 01/10/2026 11:30 AM EDT Office Visit [facility] Diabetes [facility] [address] [place] [address] Elba Bailey MD [address] [address] [email or web address] Scheduled Referrals Name Type Priority Associated Diagnoses Orde r Schedule Ambulatory referral to [facility] Physical Therapy Outpatient Referral Routine Encounter for rehabilitation Ordered: 10/08/2018 documented as of this encounter Visit Diagnoses Diagnosis Encounter for rehabilitation- Primary documented in this encounter Care Teams Burr Mill Operator Relationship Specialty Start Date End Date Alexi Nunes MD [address] [address] PCP - General Family Medicine 09/22/18 06/24/23 Pcp, Unknown PCP - General 06/25/23 09/24/23 Pcp, Unknown PCP - General 09/25/23 12/28/24 Eric Guerrero MD PCP - General Family Medicine 12/29/24 Amaya Hatfield MD [address] [address] [email or web address] Historical LMR Provider 07/29/17 10/21/21 Jj Baldwin DO [address] [place] [id number] [email or web address] Historical LMR Provider 07/29/17 10/21/21 Elba Bailey MD 22 [facility], [address] [place] [address] [email or web address] Historical LMR Provider 07/29/17 Isabel Baker MD [address] [place] [address] Historical LMR Provider 07/29/17 2 [place] [address] [email or web address] Historical LMR Provider 07/29/17 10/21/21 documented as of this encounter Additional Source Comments The information contained in this document represents components of the legal health record. It is not the complete legal health record.[facility]
--- OUTSIDE RECORDS SUMMARY | 2025-10-05 10:40 | XMS_ITS | Patient Health Record ---
Author Organization [facility] Address [address] [place] [address] Care Team Providers Care Commodity Industry Analyst Name Role Phone Eric Guerrero Primary Care Provider UnavailJj Torre Unavailable [phone] Allergies Allergen (clinical drug ingredient) Drug/Non Drug Allergy documented on EMR Reaction Allergy Type Onset Date Status sulfamethoxazole / trimethoprim Bactrim Unknown Drug Allergy Active Penicillin Unknown Drug Allergy Active Reason For Referral No Information Medications Medication SIG (Take, Route, Frequency, Duration) Notes Start Date End Date Status Cholestyramine 4 GM/DOSE Powder Use anywhere from 1/4 of a scoop to 1 scoop mixed in 8 ounces of water or orange juice Orally Once or Twice a day for diarrhea; Duration: 30 days 05/23/2025 Unknown HumaLOG 100 UNIT/ML Solution Cartridge as directed Subcutaneous 05/20/2025 Unknown Allergy (Cetirizine) 10 MG Tablet 1 tablet Orally Once a day; Duration: 30 day(s) 05/20/2025 Unknown Fluconazole 200 MG Tablet 1 tablet Orall y; Duration: 10 day(s) 05/20/2025 Unknown Acyclovir 200 MG Capsule 1 capsule Orall y Three times a day; Duration: 10 day(s) 05/20/2025 Unknown Immunizations Vaccine Route Administration Date Status Comme nts Influenza Unknown 05/20/2025 Refused Social History Tobacco Use: Social History Observation Description Date Details (start date - stop date) Never Smoker NA - NA Social History Drug/Alcohol: Social Info Question Answer Notes AUDIT-C (Standard) Did you have a drink containing alcohol in the past year? 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 Section Notes: Former heavy EtOH--sober sin ce 2010; nonsmoker Problems Problem Type SNOMED Code ICD Code Onset Dates Problem Status W/U Status Risk Notes Problem Colon cancer screening (331046947) Colon cancer screening (Z12.11) Active confirmed Problem Irritable bowel syndrome with diarrhea (967061335) Irritable bowel syndrome with diarrhea (K58.0) Active confirmed Vital Signs Temperature 98.9 degrees Fahrenheit 05/20/2025 Blood pressure diastolic 01 mm Hg 05/20/2025 Height 64.5 in 05/20/2025 Blood pressure systolic 001 mm Hg 05/20/2025 Weight 166.8 lbs 05/20/2025 BMI 28.19 kg/m2 05/20/2025 Procedures Procedure Date Ordered Date Performed Result Body Sit e COLONOSCOPY 05/20/2025 N/A Encounters Encounter Location Date Provider Diagnosis [facility] [address] [place] [phone] 05/20/2025 Jj Og Colon cancer screening Z12.11 and Irritable bowel syndrome with diarrhea K58.0 [facility] [address] [place] [phone] 05/20/2025 Jj Og [facility] [address] [place] [address] 05/20/2025 Jj Og [facility] [address] [place] [phone] 08/17/2025 Jj Og Assessments Encounter Date Diagnosis [...] see Dr. Diana from Infectious Disease at [facility] Overall, Kamille appears well. Given her age [...] Insured Coverage Start Date Coverage End Date [facility] [address] [place] [address] [id number] [id number] KAMILLE CORONADO Self - patient is the insured 5 Medical (General) History Medical History History ICD Code IDDM--has a pump Urinary incontinence Irritable bowel syndrome Herpes esophagitis in EGD 2010 with me-- I sent her to see an ID specialist Denies RI,CVA,Lung disease,renal disease Negative colonoscopy in 2010 with me Mast cell activation syndrome Surgical History Surgery Date(Month/Year) tonsilectomy 1993 CCY 2003 2008 right oopherectomy 2018
--- OUTSIDE RECORDS SUMMARY | 2025-10-05 10:41 | XMS_ITS | Clinical Summary ---
Author Organization [facility] Address [address] [place] [address] Phone Care Team Providers Care Vp Director Of Finance Name Role Phone Elba Bailey MD Unavailable [phone] Eric Guerrero MD Primary Care Provider [...] times a day. 05/10/20 25 Active vit N-tfhxhxlkj-opodvx v,citrus (QUERCETIN COMPLEX) 625 mg Tab Take 1 tablet by mouth 2 (two) times a day. 07/05/20 25 Active insulin lispro (HUMALOG U-100 INSULIN) 100 unit/mL injection vialIndications:Ty pe 1 diabetes mellitus with diabetic mononeuropathy INJECT UP TO 100 UNITS A DAY DIRECTED via insulin pump. E10.40 30 mL 12 08/19/20 25 Active Active Problems Problem Noted Date [...] EDT): Kamille is doing well on the [facility] insulin pump system, her TIR is improved and TAR2 frequency is much lower, insulin requirement is similar to previous but should decrease as her underlying insulin resistance issues Advised to continue to keep an eye on patterns, she is in touch with Sandra Orlando from clinical care team at [facility] regarding dosing considerations Kamille is scheduled to [...] pack, also CGM reports to share with [employer] for insurance approval of CGM supplies Assessment [...] Kamille remains in close contact with clinical manufacturing team member from [facility] with questions Kamille is in midst of [...] in 6 months to follow up with ma Assessment & Plan (01/04/2025 2:28 PM EDT): [...] specifically discussed the possible benefits of the [facility] insulin pump as noted Kamille has tried [...] Ronel Dai and in 6 months with ma Assessment & Plan (12/21/2022 1:32 PM EST): [...] this, advised to also discuss with her senior assistant manager Kamille will return in 3 months with [...] or concerns, will return to meet with certified adaptive physical educator in 3 months Assessment & Plan [...] insulin delivery as hybrid closed loop systems, [employer] and [employer], she is encouraged to look into these [...] no redness, no bleeding. Plan: Procedure Codes: 68497 Glucose monitoring, cont Assessment & Plan (04/01/2019 [...] no redness, no bleeding. Plan: Procedure Codes: 57971 Glucose monitoring, cont Assessment & Plan (09/30/2018 [...] Encounters Date Type Department Care Team Description 09/22/2025 Telephone [facility] Diabetes [address] [place] [address] Elba Bailey MD Reliable trying to reach patient (Reliable trying to reach patient) 08/18/2025 Refill [facility] Diabetes [facility] [address] [place] [address] Elba Bailey MD Medication Refill from Last 3 Months Social History Tobacco [...] with a working camera? Not on file 05 / Comments Unknown Sex and Gender Information Value [...] Description 01/10/2026 11:30 AM EDT Office Visit [facility] [address] [place] [address] Elba Bailey MD 22 [facility], [address] [place] [address] [email or web address] Health Maintenance Due Date Last Done Comments [...] 2025 2, 09/09/2011, 07/31/2010 COVID-19 VACCINE ( - 2024- season) 2025 BLOOD PRESSURE 01/02/2026 07/05/2025 HEMOGLOBIN [...] Hemoglobin A1c 7.7(A) 4.2 - 5.6 % [facility] Other 07/05/2025 12:0 9 PM EDT Elba Bailey MD LAB POCT ENTER/EDIT ORDERABLES Final Result Performing Organization Address [facility] Co de Phone Number [address] [address], [facility] * Microalbumin/creatinine ratio, random urine (06/25/2023 12:57 PM EDT) URINE MICROALBUMIN <1.2 0 - 2.3 mg/dL [facility] URINE CREATININE 62 mg/dL [facility] MICROALB/CRE RATIO NOT CALCULATED 0 - 20 mg/g Cre [facility] Comment:due to Microalbumin <1.2 Urine (Urine) 06/25/2023 12: 57 PM EDT 06/25/2023 12:59 PM EDT Elba Bailey MD LAB URINE ORDERABLES Final Resu lt Performing Organization Address [facility] Co de Phone Number [address] [address] * (ABNORMAL) Lipid panel (06/25/2023 12:54 PM EDT) HDL 71 mg/dL [facility] Comment: Interpretation <40 mg/dL: Low HDL cholesterol (major risk factor for CHD) Greater than or equal to 60 mg/dL: High HDL cholesterol ( negative risk factor for CHD) HDL - cholesterol is affected by a number of factors, e.g. smoking, excerise, hormones, sex and age. CHOLESTEROL 214 0 - 240 mg/dL [facility] TRIGLYCERIDES 64 30 - 160 mg/dL [facility] LDL 130(H) 50 - 129 mg/dL [facility] Comment: LDL levels in terms of risk for coronary heart disease: <100 mg/dL: Optimal 100-129 mg/dL: Near or above optimal 130-159 mg/dL: Borderline high 160-189 mg/dL: High >190 mg/dL: Very High CARDIAC RISK RATIO 3.0(L) 3.3 - 4.4 C [facility] Blood 06/25/2023 12:5 4 PM EDT 06/25/2023 12:56 PM EDT us Elba Bailey MD LAB BLOOD BKR ORDERABLES Final Result [facility] [address] [place] [address] * DIABETES EYE EXAM FOR RESULT ENTRY ONLY (03/27/2023) [facility] Signature EYE EXAM SEE SCANNED REPORT us Historical Provider HEALTH MAINTENANCE Final Result from Last 3 Months or Most Recently Relevant to Health Maintenance Insurance [facility] [id number] [facility] [place] [facility] [address] [place] [address] [facility] Care Teams Vp Director Of Finance Relationship Specialty Start Date End Date Eric Guerrero MD [address] [place] [address] PCP - General Family Medicine 12/29/24 Elba Bailey MD [address] [place] [address] [email or web address] Historical LMR Provider 07/29/17 Additional Source Comments The information contained in this document represents components of the legal health record. It is not the complete legal health record.[facility]
== END 2025-10-05 10:38 | disposition home or self-care (01) ==
LOC: HO.HMCFM 09:51
PROVIDERS: PCP Family Medicine; Visit Provider Family Medicine
DX: F41.8 Other specified anxiety disorders (principal); R00.2 Palpitations

== ENCOUNTER → 2025-10-05 09:50 | Outpatient (BNVA) | payer SELFPAY | PROVIDERS: PCP Family Medicine; Visit Provider Family Medicine | DX: R00.2 Palpitations (principal); F41.8 Other specified anxiety disorders; Z13.31 Encounter for screening for depression; Z13.39 Encounter for screening examination for other mental health and behavioral disorders | CPT/HCPCS: 96127; 99212 ==